=== PATIENT | male | born 1980 | race Two or more races ===

== ENCOUNTER 2016-10-07 01:43 | Inpatient (IN) | payer SELFPAY ==
[2016-10-07] VITALS (10 sets, daily range): BP systolic 132–216; BP diastolic 81–148
[~2016-10-07] VITALS: Ht 185.4 cm; Wt 145.7 kg
--- NOTE | 2016-10-07 02:19 | PHYS DOC ---
General Chief Complaint: SHORTNESS OF BREATH Stated Complaint: SHORTNESS OF BREATH Time Seen by MD: 01:58 Source: patient Problems: History of Present Illness Initial Comments Patient here with male friend for shortness of breath. Patient states this is going on for the last week. He gradually getting worse until tonight feels like he might . He's noticed swelling of the lower extremities for the last 2 weeks as well. Patient barely has a history of CHF with this from drug use. He says that one time he was told that his ejection fraction was 20%. He Nestor got clean for 4 months, and was told that it number was up to 55%. However, about 4 months ago at [facility] he relapsed because some social issues, and his been using methamphetamine since. He last used methamphetamine today. He 's had no fever or chills was felt hot and sweaty. There is no runny nose or sore throat. Chest some chest tightness and fullness along with the shortness of breath. He says this is not like "heart attack pain." He's had no nausea or vomiting. He has abdominal pain from what he describes his abdominal swelling and edema. He says he sees a stretch arroyo coming out. He has no change in bowel or bladder habits, though he admits to some sort of unusual, pleasurable, "orgasmic" feeling when he urinates. He does have bilateral lower extremity edema as previously described. He denies other focal extremity or neurologic complaints. Patient's done nothing at home for this over the past week. 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 He says he was posting on Coreg and Lasix, but didn't realize he was supposed to continue that after his last hospitalization and has been off his medicines for quite some time. Other than as described there's been nothing else done for this and no fractures noted increase or decrease his symptoms. Patient's past history is remarkable for CHF and methamphetamine abuse as described. He smokes several cigarettes daily. He is nonuser of ethanol. He does admit to methamphetamine use as described. Allergies: Coded Allergies: sulfamethoxazole (Verified Allergy, Unknown, 10/07/16) trimethoprim (Verified Allergy, Unknown, 10/07/16) Past Medical History Medical History: congestive heart failure, other Social History Smoker: less than 1 pack/day Alcohol: none Drugs: other Review of Systems All Other Systems: Reviewed and Negative Physical Exam General Appearance: WD/WN, mild distress Ear, Nose, Throat: normal ENT inspection, normal pharynx Neck: full range of motion, supple, normal inspection Respiratory: lungs clear, decreased breath sounds Cardiovascular: regular rate, rhythm, no gallop Gastrointestinal: non tender, soft, no organomegaly Back: no CVA tenderness, no vertebral tenderness Extremities: non-tender, swelling, other Neurologic/Psychiatric: no motor/sensory deficits, alert, normal mood/affect, oriented x 3 Skin: normal color Lymphatic: no adenopathy Comments Generally this is a morbidly obese in some mild respiratory distress. Vitals are as noted. Pertinent findings on physical exam shows ears and throat are grossly clear. The neck is supple without adenopathy or JVD. There's no meningeal signs. Chest shows diminished breath sounds throughout but is essentially clear. He is mildly tachypnea and using some accessory muscles. He is able to verbalize phrases without difficulty. He appears to be in mild respiratory distress. Cardiac exam shows regular rate and rhythm without murmur. The abdomen is distended and morbidly obese. Soft. There is no masses or organomegaly or peritoneal findings. Diffusely minimally tender. Back shows no CVA tenderness. Extremities show 3+ bilateral tight edema with some mild discoloration and venous stasis changes. There is no asymmetry or cords. Patient is awake alert mildly anxious but oriented and cooperative with exam. Remainder of physical exam is clinically unremarkable. Orders, Labs, Meds Old charts note no prior ER visits within the current system. EKG shows sinus 1:15. There is left axis deviation. There are no acute ST or T- wave changes. Labs today are notable for a BNP of nearly 11,000. Troponin is mildly elevated. CPK is unremarkable. Renal function appears fair with mild elevation of creatinine 1.5. Urine drug screen is positive for methamphetamine. Chest x-ray shows significant cardiomegaly and some mild pulmonary fullness suggestive of CHF per the emergency physician. 0445 Patient resting ED. Had good diuresis and says of shortness of breath is better. He is able to lie more flat at this time. I did discuss with the patient most likely cause of his symptoms related to exacerbation of CHF, and return likely related to his methamphetamine use. He will need to be admitted for diuresis and probable cardiac evaluation with echocardiogram to determine his current cardiac status. He voiced understanding and is agreeable to same. He is seen at the [facility]. I discussed the case with Dr. Moore of the hospitalist service who graciously agrees to admit the patient for further evaluation and care. I written initial holding orders to include serial cardiac enzymes, electrolyte measurements, diuresis, nitrates, cardiology consult with echocardiogram in the morning. The patient is resting at this time awaiting transfer to the floor and hospitalist care. PANKAJ CHERRY MD Oct 07, 2016 02:19
[2016-10-07] MEDS ORDERED: FUROSEMIDE 40 MG/4 ML VIAL IVP ONE (02:30)
[2016-10-07] MEDS ORDERED: NITROGLYCERIN OINT 1 GM PACKET. TP ONE (02:30)
[2016-10-07 03:56] LABS: BASO # 0.1 x10^3/uL (0.0-0.2); BASO % 1 % (0-3); EOS # 0.6 x10^3/uL (0.0-0.7); EOS % 5 % (0-3); HEMATOCRIT 44.5 % (39.0-53.0); HEMOGLOBIN 14.3 g/dL (13.0-17.5); LYMPH # 2.7 x10^3/uL (1.0-4.8); LYMPH % 23 % (24-48); MEAN CORPUSCULAR HEMOGLOBIN 27 pg (25-35); MEAN CORPUSCULAR HGB CONC 32 g/dL (31-37); MEAN CORPUSCULAR VOLUME 85 fL (79-100); MONO # 0.8 x10^3/uL (0.0-1.1); MONO % 7 % (0-9); NEUT # 7.6 x10^3uL (1.8-7.7); NEUT % 65 % (31-73); PLATELET COUNT 242 x10^3/uL (140-400); RED BLOOD COUNT 5.22 x10^6/uL (4.30-5.70); WHITE BLOOD COUNT 11.6 x10^3/uL (4.0-11.0)
[2016-10-07 04:21] LABS: ALBUMIN 3.3 g/dL (3.4-5.0); ALBUMIN/GLOBULIN RATIO 0.7 (1.0-1.7); CALCIUM 8.6 mg/dL (8.5-10.1); CREATININE 1.5 mg/dL (0.7-1.3); GFR 52.7; POTASSIUM 3.7 mmol/L (3.5-5.1); TOTAL BILIRUBIN 1.4 mg/dL (0.2-1.0)
[2016-10-07 04:30] LABS: BARBITURATES NEG (NEG); BENZODIAZEPINES NEG (NEG); CANNABINOIDS NEG (NEG); COCAINE NEG (NEG); METHADONE NEG (NEG); OPIATES NEG (NEG); PHENCYCLIDINE NEG (NEG)
[2016-10-07 04:33] LABS: BACTERIA,URINE FEW /HPF (0-FEW); BILIRUBIN,URINE NEG (NEG); CLARITY,URINE CLEAR; COLOR,URINE YELLOW; GLUCOSE,URINE NEG (NEG); NITRITE,URINE NEG (NEG); RBC,URINE 0 /HPF (0-2); SQUAMOUS EPITHELIAL CELL,UR OCC /LPF; UROBILINOGEN,URINE 0.2 mg/dL (0.2 mg/dL)
[2016-10-07 04:34] LABS: AMPHETAMINE/METHAMPHETAMINE POS (NEG)
--- NOTE | 2016-10-07 05:26 | ACF ---
Admission Criteria Forms HEART FAILURE: COMMON COMPLICATIONS Clinical Indications for Inpatient Care (Place 'X' for any and all applicable criteria): Ongoing inpatient care may be indicated for heart failure with ANY ONE of the following (1)(2)(3)(4)(5): [ ]I. Ongoing need for care for primary condition requiring frequent therapy adjustments because of changes in cardiac function (eg, drug dosage changes for drugs that are renally metabolized) [ ]II. New-onset heart failure [ ]III. Heart failure with decreased urine output not responsive to attempts to optimize volume status [ ]IV. Acute cardiac ischemia causing or associated with failure [X]V. Complications of heart failure, including ANY ONE of the following: [ ]a) Pericardial effusion [ ]b) Symptomatic pleural effusion [ ]c) O2 saturation <90% or PO2 < 60 mm Hg (8.0 kPa) on room air or require baseline supplemental O2 [ ]d) Tachypnea [X]e) Dyspnea [ ]f) Syncope [ ]g) Change in mental status [ ]h) Acute renal insufficiency that is severe (reduction of more than 50% in estimated glomerular filtration rate from baseline) or progressive reduction of more than 25% in estimated glomerular filtration rate from baseline, with creatinine continuing to rise) [ ]i) Hemodynamic instability [ ]j) Anasarca [ ]k) Clinically significant metabolic abnormalities due to heart failure (eg, new-onset metabolic acidosis) Extended stay beyond goal length of stay for primary condition may be needed until ALL of the following are present(1)(3): [ ]a) Stable and effective diuretic regimen established (or patient on stable dialysis regimen if in chronic renal failure) [ ]b) Breathing comfortably at rest [ ]c) Saturation of arterial oxygen greater than 90% or at acceptable baseline [ ]d) Pulmonary edema absent or improved [ ]e) Hemodynamic stability [ ]f) Volume status acceptable on oral medication [ ]g) Peripheral or sacral edema absent or improved [ ]h) Renal function stable and manageable at a lower level of care [ ]i) Complications (eg, pleural effusion) resolved or manageable at a lower level of care [ ]j) Patient or caregiver has received written discharge instructions or educational material addressing activity level, diet, discharge medications, follow-up appointment, weight monitoring, and what to do if symptoms worsen The original [email or web address] content created by [employer] has been revised. The portions of the content which have been revised are identified through the use of italic text or in bold, and [facility] has neither reviewed nor approved the modified material.All other unmodified content is copyright [facility]. Please see references footnoted in the original [facility] edition 2016 Admission Criteria Met?: Yes MARI CONTRERAS Oct 07, 2016 05:26
[2016-10-07] MEDS: MORPHINE SULFATE 4 MG/ML DISP.SYRIN. IV PRN ×3 (07:14→23:55)
--- NOTE | 2016-10-07 07:20 | RAD ---
Portable chest, 10/07/2016: History: Shortness of breath, chest pain The heart is at the upper limits of normal in size. No pulmonary infiltrates are seen. There is no evidence of pleural fluid. IMPRESSION: No acute cardiopulmonary abnormality is detected.
--- NOTE | 2016-10-07 07:53 | EKG ---
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
[2016-10-07 08:06] LABS: CALCIUM 8.7 mg/dL (8.5-10.1); CREATININE 1.6 mg/dL (0.7-1.3); GFR 48.9; POTASSIUM 3.3 mmol/L (3.5-5.1)
[2016-10-07] MEDS ORDERED: POTASSIUM CHLORIDE 20 MEQ TABLET.ER. PO ONE (08:45)
[2016-10-07] MEDS ORDERED: FURO-68 PO (09:11)
[2016-10-07] MEDS ORDERED: CARV25TA PO (09:11)
[2016-10-07] MEDS ORDERED: BENA20TA2 PO (09:12)
--- NOTE | 2016-10-07 09:39 | CARD ---
APPROVED REPORT EXAM: Two-dimensional and M-mode echocardiogram with Doppler and color Doppler. Other Information Quality : GoodHR: 106bpm Rhythm : Tachycardia INDICATION Congestive Heart Failure RISK FACTORS Hypertension Obesity HX.of methemphetamine use 2D DIMENSIONS RVDd2.4 (2.9-3.5cm)IVSd1.6 (0.7-1.1cm) Aortic Root(2D)2.6 (2.0-3.7cm)LVDd6.3 (3.9-5.9cm) PWd1.6 (0.7-1.1cm)LVDs5.6 (2.5-4.0cm) FS (%) 11.9 %SV51.1 ml LVEF(%)25.1 (>50%) Aortic Valve AoV Peak Alex.110.7cm/sAoV VTI13.8cm AO Peak GR.4.9mmHgAO Mean GR.3mmHg JOVANA (VTI)3.77cm2 Mitral Valve MV E Zvtiuuou906.0cm/sMV E Peak Gr.5mmHg MV DECEL [id number] E Mean Gr.3mmHg Tricuspid Valve TR P. [id number]/sRAP [id number] TR Peak Gr.52mmHg LEFT VENTRICLE The Left Ventricle is mildly dilated. There is moderate concentric left ventricular hypertrophy. Left ventricle systolic function is severely impaired. The Ejection Fraction is 20-25%. There is severe g lobal hypokinesis of the left ventricle. Tissue Doppler imaging reveals severe left ventricular diast olic dysfunction. No left ventricle thrombus noted on this study. RIGHT VENTRICLE The right ventricle is normal size. There is normal right ventricular wall thickness. RV Systolic fun ction is moderately reduced. ATRIA The left atrium is mildly dilated. The right atrium size is normal. The interatrial septum is intact with no evidence for an atrial septal defect or patent foramen ovale as noted on 2-D or Doppler imagi ng. AORTIC VALVE The aortic valve is normal in structure and function. Doppler and Color Flow revealed no significant aortic regurgitation. There is no significant aortic valvular stenosis. MITRAL VALVE There is no evidence of mitral valve prolapse. There is no mitral valve stenosis. Doppler and Color F low revealed mild mitral regurgitation. TRICUSPID VALVE Doppler and Color Flow revealed mild tricuspid regurgitation. The pulmonary artery systolic pressure is estimated at 57 mmHg. There is moderate pulmonary hypertension. PULMONIC VALVE Doppler and Color Flow revealed mild pulmonic valvular regurgitation. There is no pulmonic valvular s tenosis. GREAT VESSELS The aortic root is normal in size. The ascending aorta is normal in size. Pulmonary venous flow patte rn is suggestive of moderate to severe left ventricular diastolic dysfunction. The IVC is normal in s ize and collapses >50% with inspiration. PERICARDIAL EFFUSION There is no evidence of significant pericardial effusion. Critical Notification Critical Value: No <Conclusion> Left ventricle systolic function is severely impaired. The Ejection Fraction is 20-25%. There is severe global hypokinesis of the left ventricle. Tissue Doppler imaging reveals severe left ventricular diastolic dysfunction. RV Systolic function is moderately reduced. Doppler and Color Flow revealed mild tricuspid regurgitation. The pulmonary artery systolic pressure is estimated at 57 mmHg. There is moderate pulmonary hypertension.
--- NOTE | 2016-10-07 09:55 | PDOC2 ---
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 His initial echo was 30 % in 2014 but had improved to 55% by echo ~ 4 months ago. He reports that he stopped his medication, not understanding that he needed to continue to take it. He has additional history of methamphetamine use , had stopped but restarted about 4-5 months ago. He reports about 4 weeks ago , developing a cough. He became progressively more short of breath and edematous. Yesterday he was unable to walk more than 20 feet without significant dyspnea. He reports PND frequently, waking about every 2 hours. He denies chest pain or palpitations. He reports good output with the lasix and that his symptoms are significantly improved. Past Medical History hypertension, NICM, CHF he reports a negative cardiac cath previously attention deficit disorder Family History CAD, diabetes mellitus Social History + smoker, methamphetamine use, he denies significant ETOH he has two young children at home. Current Medications Current Medications Furosemide (Lasix) 40 mg 1X ONCE IVP Last administered on 10/07/16 03:32; Start 10/07/16 at 02:30; Stop 10/07/16 at 02:32; Status DC Nitroglycerin (Nitro-Bid Oint) 1 inch 1X ONCE TP Last administered on 03:36; Start 10/07/16 at 02:30; Stop 10/07/16 at 02:32; Status DC Furosemide (Lasix) 40 mg Q8HRS IVP ; Start 10/07/16 at 14:00 Nitroglycerin (Nitro-Bid Oint) 1 inch Q6HRS TP ; Start 10/07/16 at 12:00 Morphine Sulfate (Morphine 4mg Syringe) 4 mg PRN Q4HRS PRN IV PAIN Last administered on 10/07/16 07:14; Start 10/07/16 at 07:00 Potassium Chloride (Klor-Con) 40 meq 1X ONCE PO ; Start 10/07/16 at 08:45; Stop 10/07/16 at 08:46; Status DC Active Scripts Active Reported Benazepril Hcl 20 Mg Tablet 1 Tab PO DAILY Lasix (Furosemide) 40 Mg Tablet 1 Tab PO DAILY Coreg (Carvedilol) 25 Mg Tablet 1 Tab PO BID Allergies: Coded Allergies: sulfamethoxazole (Verified Allergy, Intermediate, 10/07/16) trimethoprim (Verified Allergy, Intermediate, 10/07/16) Review of System as per HPI General: Alert, Oriented X3, Cooperative, No acute distress HEENT: Atraumatic, EOMI Lungs: Other (decreased from mid lung down) Heart: Regular rate, Normal S1, Normal S2 Abdomen: Normal bowel sounds, Soft, No tenderness Extremities: No cyanosis, Normal pulses, Other (+2 edema) Neuro: Normal speech, Strength at 5/5 X4 ext Psych/Mental Status: Mental status NL, Mood NL VITALS Vital Signs Date Time Temp Pulse Resp B/P Pulse Ox O2 Delivery O2 Flow Rate FiO2 10/07/16 08:12 22 97 Room Air 10/07/16 07:51 100 203/131 10/07/16 06:30 97.5 Labs Laboratory Tests Test 10/07/16 03:16 10/07/16 04:10 10/07/16 07:45 White Blood Count 11.6x10^3/uL (4.0-11.0) Red Blood Count 5.22x10^6/uL (4.30-5.70) Hemoglobin 14.3g/dL (13.0-17.5) Hematocrit 44.5% (39.0-53.0) Mean Corpuscular Volume 85fL (79-100) Mean Corpuscular Hemoglobin 27pg (25-35) Mean Corpuscular Hemoglobin Concent 32g/dL (31-37) Red Cell Distribution Width 15.0% (11.5-14.5) Platelet Count 242x10^3/uL (140-400) Neutrophils (%) (Auto) 65% (31-73) Lymphocytes (%) (Auto) 23% (24-48) Monocytes (%) (Auto) 7% (0-9) Eosinophils (%) (Auto) 5% (0-3) Basophils (%) (Auto) 1% (0-3) Neutrophils # (Auto) 7.6x10^3uL (1.8-7.7) Lymphocytes # (Auto) 2.7x10^3/uL (1.0-4.8) Monocytes # (Auto) 0.8x10^3/uL (0.0-1.1) Eosinophils # (Auto) 0.6x10^3/uL (0.0-0.7) Basophils # (Auto) 0.1x10^3/uL (0.0-0.2) Prothrombin Time 11.6SEC (9.4-11.4) Prothromb Time International Ratio 1.1 (0.9-1.1) Sodium Level 140mmol/L (136-145) 144mmol/L (136-145) Potassium Level 3.7mmol/L (3.5-5.1) 3.3mmol/L (3.5-5.1) Chloride Level 105mmol/L (98-107) 106mmol/L (98-107) Carbon Dioxide Level 21mmol/L (21-32) 27mmol/L (21-32) Anion Gap 14 (6-14) 11 (6-14) Blood Urea Nitrogen 21mg/dL (8-26) 19mg/dL (8-26) Creatinine 1.5mg/dL (0.7-1.3) 1.6mg/dL (0.7-1.3) Estimated GFR (Cockcroft-Gault) 52.7 48.9 BUN/Creatinine Ratio 14 (6-20) Glucose Level 106mg/dL (70-99) 120mg/dL (70-99) Calcium Level 8.6mg/dL (8.5-10.1) 8.7mg/dL (8.5-10.1) Total Bilirubin 1.4mg/dL (0.2-1.0) Aspartate Amino Transf (AST/SGOT) 36U/L (15-37) Alanine Aminotransferase (ALT/SGPT) 39U/L (16-63) Alkaline Phosphatase 76U/L (46-116) Creatine Kinase 139U/L (39-308) 138U/L (39-308) Creatine Kinase MB (Mass) 2.1ng/mL (0.0-3.6) Creatine Kinase MB Relative Index 1.5% (0-4) Troponin I Quantitative 0.120ng/mL (0-0.055) 0.117ng/mL (0-0.055) WH-Bwk-L-Type Natriuretic Peptide 16386ix/mL (0-124) Total Protein 8.0g/dL (6.4-8.2) Albumin 3.3g/dL (3.4-5.0) Albumin/Globulin Ratio 0.7 (1.0-1.7) Ethyl Alcohol Level < 10mg/dL (0-10) Acetone Level Neg (NEG) Urine Collection Type Unknown Urine Color Yellow Urine Clarity Clear Urine pH 6.0 Urine Specific [place] 1.010 Urine Protein 100 mg/dl (NEG-TRACE) Urine Glucose (UA) Negmg/dL (NEG) Urine Ketones (Stick) Negmg/dL (NEG) Urine Blood Small (NEG) Urine Nitrite Neg (NEG) Urine Bilirubin Neg (NEG) Urine Urobilinogen Dipstick 0.2mg/dL (0.2 mg/dL) Urine Leukocyte Esterase Trace (NEG) Urine RBC 0/HPF (0-2) Urine WBC 5-10/HPF (0-4) Urine Squamous Epithelial Cells Occ/LPF Urine Bacteria Few/HPF (0-FEW) Urine Opiates Screen Neg (NEG) Urine Methadone Screen Neg (NEG) Urine Barbiturates Neg (NEG) Urine Phencyclidine Screen Neg (NEG) Urine Amphetamine/Methamphetamine Pos (NEG) Urine Benzodiazepines Screen Neg (NEG) Urine Cocaine Screen Neg (NEG) Urine Cannabinoids Screen Neg (NEG) Urine Ethyl Alcohol Neg (NEG) Images EKG - sinus tachycardia with non specific st/t abn. Assessment/Plan 1. acute on chronic systolic heart failure - await echo, resume beta blockers, ACEI, diuretics. He could probably use aldactone as well if able to tolerate. Continue IV diuresis. monitor I/Os and daily weight. Requested records of cardiac cath (apparently done at [facility]). 2. NICM by report - EF as low as 22%, improved to 55% in March of last year. Await echo. 3. elevated troponin - secondary to #1-2 4. accelerated hypertension - resume beta sudeep, ACEI/ARB and diuretics. Hydralazine PRN. Titrate meds as tolerated. 5. substance abuse - cessation encouraged 6. morbid obesity - weight reduction encouraged. 7. medical non compliance Problems: CORTNEY REBOLLAR MD 10/07/16 1408: CONSULT Allergies: Coded Allergies: sulfamethoxazole (Verified Allergy, Intermediate, 10/07/16) trimethoprim (Verified Allergy, Intermediate, 10/07/16) Assessment/Plan Pt. seen and examined. Agree with above BUSINESS PROCESS REPRESENTATIVE note. 36 y.o with NICM due to drug abuse on exam he is obese, has sleep apnea, lower ext edema. plan for med reinitiation. echo reviewed. EF 25% will follow. Problems: ESTER MO APRN Oct 07, 2016 09:55 CORTNEY REBOLLAR MD Oct 07, 2016 14:08
[2016-10-07] MEDS ORDERED: hydrALAZINE 20 MG/ML VIAL. IV PRN ×2 (10:00→13:45)
[2016-10-07] MEDS ORDERED: LISINOPRIL 10 MG TABLET PO SCH (10:30)
[2016-10-07] MEDS ORDERED: CARVEDILOL 6.25 MG TABLET PO SCH ×2 (10:30→17:00)
[2016-10-07] MEDS ORDERED: ASPIRIN 81 MG TAB.CHEW PO ONE (10:30)
[2016-10-07] MEDS: POTASSIUM CHLORIDE 20 MEQ TABLET.ER. PO ONE ×2 (10:30→10:42)
[2016-10-07] MEDS: FUROSEMIDE 40 MG/4 ML VIAL IVP SCH ×2 (10:39→21:03)
[2016-10-07] MEDS ORDERED: LOSARTAN 50 MG TABLET. PO SCH (11:30)
[2016-10-07] MEDS: NITROGLYCERIN OINT 1 GM PACKET. TP SCH ×3 (12:00→23:55)
[2016-10-07] MEDS ORDERED: FUROSEMIDE 40 MG/4 ML VIAL IVP SCH (14:00)
[2016-10-07] MEDS: ALPRAZOLAM 0.25 MG TABLET PO PRN (14:16)
--- NOTE | 2016-10-07 14:24 | HP ---
ADMIT DATE: 10/07/2016 HISTORY OF PRESENT ILLNESS: The patient is a 36-year-old male patient who came to the Emergency Room complaining with progressive shortness of breath and swelling of both legs. He was unable to walk more than 20 feet without significant shortness of breath. He reports paroxysmal nocturnal dyspnea. He denied any chest pain or palpitation. He apparently is known to have an ischemic cardiomyopathy with an ejection fraction of 30% in 2015 and that has improved to 55% with an echocardiogram done 4 months ago. He apparently thought it was cured and stopped his medication. In addition, he started abusing methamphetamine. About 4 weeks ago, he started having cough and then progressive swelling of his legs and weight gain. He came to the Emergency Room with a friend of his. Initial evaluation showed that he continued to abusing amphetamine and methamphetamine. His troponin was elevated and his BNP was found to be high almost 11,000 and was admitted to rule out myocardial infarction and to consult cardiology team for further evaluation and treatment. PAST MEDICAL HISTORY: Significant for hypertension, nonischemic cardiomyopathy, and congestive heart failure. Also, he is known to have attention deficit hyperactivity syndrome. PAST SURGICAL HISTORY: Significant for cardiac catheterization. FAMILY HISTORY: Significant for coronary artery disease and diabetes. SOCIAL HISTORY: He is a smoker and continued to use amphetamine. He denied any alcohol abuse. He has 2 young children at home. ALLERGIES: HE IS ALLERGIC TO SULFAMETHOXAZOLE AND TRIMETHOPRIM. MEDICATIONS: He was placed on benazepril 20 mg once a day, carvedilol 25 mg twice a day, and furosemide 40 mg once a day. REVIEW OF SYSTEMS: As per history of present illness. PHYSICAL EXAMINATION: GENERAL: On examining him, he was resting slightly propped up in bed, in no apparent respiratory distress. No pallor, jaundice, cyanosis, or thyromegaly. No jugular distention ____ generalized anasarca. VITAL SIGNS: His heart rate was 100, blood pressure 189/148, temperature was 97.8, respiratory rate 22, and oxygen saturation was 98% on room air. HEENT: Showed normocephalic and atraumatic. NECK: Supple. HEART: Showed normal first and second heart sounds with no gallop, rub, or murmur. CHEST: Clear to auscultation. No crepitation or rhonchi. ABDOMEN: Distended, soft, and nontender. No guarding or rigidity. No organomegaly. Hernial orifices are intact. Bowel sounds normal. NEUROLOGIC: He is awake, alert, and responding appropriately. Cranial nerves intact. EXTREMITIES: he moves extremities without difficulty. LABORATORY DATA: His lab work as of this morning showed that his serum sodium was 140, potassium 3.7, chloride 105, bicarbonate 21, anion gap of 14, BUN 21, creatinine 1.5, estimated GFR was 53 mL per minute, his glucose 106, calcium was 8.6, and total bilirubin 1.4. AST, ALT, and alkaline phosphatase were normal. His beta natriuretic peptide was almost 11,000. Total protein was 8 and albumin 3.3. His white cell count was 11,600, hemoglobin 14, hematocrit 44, MCV 85, and platelet count 242,000. His prothrombin time was 11.6 and INR 1.1. Urinalysis showed the urine was yellow and clear with a pH of 6 and specific gravity of 1.010. He has large amount of protein. The urine was negative for glucose, ketones, and small amount of blood. Negative for nitrite, trace of leukocyte esterase with 0 rbc's, 5-10 wbc's, and very few bacteria. His toxic screen was positive for amphetamine and methamphetamine. Negative for opiates, methadone, barbiturates, phencyclidine, benzodiazepine, cannabinoids, and ethyl alcohol. DIAGNOSTIC DATA: His chest x-ray showed that the heart is at the upper limit of normal in size and pulmonary infiltrates are seen. There is no evidence of pleural fluid. IMPRESSION AND PLAN: 1. In summary, this is a 36-year-old male patient with acute on chronic systolic congestive heart failure. His echocardiogram showed that he has left ventricular systolic function severely impaired with ejection fraction of 20-25%. He has severe global hypokinesis of the left ventricle. Tissue Doppler imaging revealed severe left ventricular diastolic dysfunction and right ventricular systolic function is moderately reduced. Doppler and color flow revealed mild tricuspid regurgitation. The pulmonary systolic pressure was estimated at 57 mmHg. There is moderate pulmonary hypertension. He has a nonischemic cardiomyopathy with an ejection fraction that has improved to 55% 03/2016. 2. Elevated troponin. 3. Accelerated hypertension. 4. Substance abuse. 5. Moderate morbid obesity. He is currently on losartan, carvedilol, hydralazine, furosemide, and morphine sulfate. ANTONIO YOUNG MD DR: Mary JOB#: [id number] / [id number]
[2016-10-07] MEDS ORDERED: CARVEDILOL 6.25 MG TABLET PO ONE (14:30)
[2016-10-07] MEDS: CARVEDILOL 25 MG TABLET PO SCH (16:43)
--- NOTE | 2016-10-07 20:55 | EKG ---
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
[2016-10-07] MEDS: LOSARTAN 50 MG TABLET. PO SCH (21:04)
[2016-10-08 05:05] VITALS: BP 152/89
[2016-10-08] MEDS: NITROGLYCERIN OINT 1 GM PACKET. TP SCH ×2 (05:50→11:19)
[2016-10-08 06:30] LABS: HEMATOCRIT 44.5 % (39.0-53.0); HEMOGLOBIN 14.4 g/dL (13.0-17.5); RED BLOOD COUNT 5.16 x10^6/uL (4.30-5.70); RED CELL DISTRIBUTION WIDTH 14.8 % (11.5-14.5); WHITE BLOOD COUNT 8.9 x10^3/uL (4.0-11.0)
[2016-10-08 06:52] LABS: ALBUMIN/GLOBULIN RATIO 0.7 (1.0-1.7); CALCIUM 8.3 mg/dL (8.5-10.1); CREATININE 1.5 mg/dL (0.7-1.3); GFR 52.7; POTASSIUM 3.4 mmol/L (3.5-5.1); TOTAL BILIRUBIN 1.2 mg/dL (0.2-1.0); TOTAL PROTEIN 7.5 g/dL (6.4-8.2)
[2016-10-08] MEDS: ALPRAZOLAM 0.25 MG TABLET PO PRN (08:50)
[2016-10-08] MEDS: LOSARTAN 50 MG TABLET. PO SCH (08:51)
[2016-10-08] MEDS: CARVEDILOL 25 MG TABLET PO SCH (08:51)
[2016-10-08] MEDS: FUROSEMIDE 40 MG/4 ML VIAL IVP SCH (09:39)
[2016-10-08] MEDS ORDERED: POTASSIUM CHLORIDE 20 MEQ TABLET.ER. PO SCH (10:00)
[2016-10-08] MEDS ORDERED: HYDRALAZINE 25 MG TABLET PO SCH (10:00)
[2016-10-08 10:37] VITALS: BP 143/92
--- NOTE | 2016-10-08 11:02 | PDOC ---
PROGRESS NOTES Diagnosis Problem Problems Medical Problems: (1) CHF (congestive heart failure) Status: Acute Assessment Problems Medical Problems: (1) CHF (congestive heart failure) Status: Acute 1. acute on chronic systolic heart failure - EF 25% by echo. continue coreg, losartan. Add hydralazine. Consider aldactone. Continue diuresis. awaiting [facility] records of cardiac cath. 2. NICM by report - EF as low as 22%, improved to 55% in March of last year now 25%. medical therapy resumed. 3. elevated troponin - secondary to #1-2 4. accelerated hypertension - blood pressure improving. Coreg and losartan at max dosing. add hydralazine scheduled. 5. hypokalemia - replace 6. renal insufficiency - likely chronic, cr remains stable. Problems: Subjective up eating, no chest pain, breathing improved. remains edematous. Objective Vital Signs Date Time Temp Pulse Resp B/P Pulse Ox O2 Delivery O2 Flow Rate FiO2 10/08/16 10:38 85 10/08/16 10:37 97.8 18 143/92 94 Room Air Intake and Output 10/08/16 07:00 Intake Total 2860 ml Output Total 2875 ml Balance -15 ml Intake Oral 2860 ml Output Urine Total 2875 ml # Voids 2 Abdomen: Normal bowel sounds, Soft Heart: Regular rate, Normal S1, Normal S2 Extremities: Other (+edema unchanged) General: Alert, Oriented X3, Cooperative Lungs: Other (few basilar crackles) Neuro: Normal speech, Strength at 5/5 X4 ext Psych/Mental Status: Mental status NL, Mood NL Review of Relevant I have reviewed the following items juan (where applicable) has been applied. Labs Laboratory Tests Test 10/07/16 03:16 10/07/16 04:10 10/07/16 07:45 10/07/16 11:10 White Blood Count 11.6x10^3/uL (4.0-11.0) Red Blood Count 5.22x10^6/uL (4.30-5.70) Hemoglobin 14.3g/dL (13.0-17.5) Hematocrit 44.5% (39.0-53.0) Mean Corpuscular Volume 85fL (79-100) Mean Corpuscular Hemoglobin 27pg (25-35) Mean Corpuscular Hemoglobin Concent 32g/dL (31-37) Red Cell Distribution Width 15.0% (11.5-14.5) Platelet Count 242x10^3/uL (140-400) Neutrophils (%) (Auto) 65% (31-73) Lymphocytes (%) (Auto) 23% (24-48) Monocytes (%) (Auto) 7% (0-9) Eosinophils (%) (Auto) 5% (0-3) Basophils (%) (Auto) 1% (0-3) Neutrophils # (Auto) 7.6x10^3uL (1.8-7.7) Lymphocytes # (Auto) 2.7x10^3/uL (1.0-4.8) Monocytes # (Auto) 0.8x10^3/uL (0.0-1.1) Eosinophils # (Auto) 0.6x10^3/uL (0.0-0.7) Basophils # (Auto) 0.1x10^3/uL (0.0-0.2) Prothrombin Time 11.6SEC (9.4-11.4) Prothromb Time International Ratio 1.1 (0.9-1.1) Sodium Level 140mmol/L (136-145) 144mmol/L (136-145) Potassium Level 3.7mmol/L (3.5-5.1) 3.3mmol/L (3.5-5.1) Chloride Level 105mmol/L (98-107) 106mmol/L (98-107) Carbon Dioxide Level 21mmol/L (21-32) 27mmol/L (21-32) Anion Gap 14 (6-14) 11 (6-14) Blood Urea Nitrogen 21mg/dL (8-26) 19mg/dL (8-26) Creatinine 1.5mg/dL (0.7-1.3) 1.6mg/dL (0.7-1.3) Estimated GFR (Cockcroft-Gault) 52.7 48.9 BUN/Creatinine Ratio 14 (6-20) Glucose Level 106mg/dL (70-99) 120mg/dL (70-99) Calcium Level 8.6mg/dL (8.5-10.1) 8.7mg/dL (8.5-10.1) Total Bilirubin 1.4mg/dL (0.2-1.0) Aspartate Amino Transf (AST/SGOT) 36U/L (15-37) Alanine Aminotransferase (ALT/SGPT) 39U/L (16-63) Alkaline Phosphatase 76U/L (46-116) Creatine Kinase 139U/L (39-308) 138U/L (39-308) 136U/L (39-308) Creatine Kinase MB (Mass) 2.1ng/mL (0.0-3.6) Creatine Kinase MB Relative Index 1.5% (0-4) Troponin I Quantitative 0.120ng/mL (0-0.055) 0.117ng/mL (0-0.055) 0.121ng/mL (0-0.055) WW-Vdn-T-Type Natriuretic Peptide 20278bw/mL (0-124) Total Protein 8.0g/dL (6.4-8.2) Albumin 3.3g/dL (3.4-5.0) Albumin/Globulin Ratio 0.7 (1.0-1.7) Ethyl Alcohol Level < 10mg/dL (0-10) Acetone Level Neg (NEG) Urine Collection Type Unknown Urine Color Yellow Urine Clarity Clear Urine pH 6.0 Urine Specific [place] 1.010 Urine Protein 100 mg/dl (NEG-TRACE) Urine Glucose (UA) Negmg/dL (NEG) Urine Ketones (Stick) Negmg/dL (NEG) Urine Blood Small (NEG) Urine Nitrite Neg (NEG) Urine Bilirubin Neg (NEG) Urine Urobilinogen Dipstick 0.2mg/dL (0.2 mg/dL) Urine Leukocyte Esterase Trace (NEG) Urine RBC 0/HPF (0-2) Urine WBC 5-10/HPF (0-4) Urine Squamous Epithelial Cells Occ/LPF Urine Bacteria Few/HPF (0-FEW) Urine Opiates Screen Neg (NEG) Urine Methadone Screen Neg (NEG) Urine Barbiturates Neg (NEG) Urine Phencyclidine Screen Neg (NEG) Urine Amphetamine/Methamphetamine Pos (NEG) Urine Benzodiazepines Screen Neg (NEG) Urine Cocaine Screen Neg (NEG) Urine Cannabinoids Screen Neg (NEG) Urine Ethyl Alcohol Neg (NEG) Test 10/08/16 05:37 White Blood Count 8.9x10^3/uL (4.0-11.0) Red Blood Count 5.16x10^6/uL (4.30-5.70) Hemoglobin 14.4g/dL (13.0-17.5) Hematocrit 44.5% (39.0-53.0) Mean Corpuscular Volume 86fL (79-100) Mean Corpuscular Hemoglobin 28pg (25-35) Mean Corpuscular Hemoglobin Concent 33g/dL (31-37) Red Cell Distribution Width 14.8% (11.5-14.5) Platelet Count 226x10^3/uL (140-400) Sodium Level 142mmol/L (136-145) Potassium Level 3.4mmol/L (3.5-5.1) Chloride Level 105mmol/L (98-107) Carbon Dioxide Level 28mmol/L (21-32) Anion Gap 9 (6-14) Blood Urea Nitrogen 20mg/dL (8-26) Creatinine 1.5mg/dL (0.7-1.3) Estimated GFR (Cockcroft-Gault) 52.7 BUN/Creatinine Ratio 13 (6-20) Glucose Level 105mg/dL (70-99) Calcium Level 8.3mg/dL (8.5-10.1) Magnesium Level 1.9mg/dL (1.8-2.4) Total Bilirubin 1.2mg/dL (0.2-1.0) Aspartate Amino Transf (AST/SGOT) 36U/L (15-37) Alanine Aminotransferase (ALT/SGPT) 39U/L (16-63) Alkaline Phosphatase 94U/L (46-116) RE-Pzu-U-Type Natriuretic Peptide 2696pg/mL (0-124) Total Protein 7.5g/dL (6.4-8.2) Albumin 3.0g/dL (3.4-5.0) Albumin/Globulin Ratio 0.7 (1.0-1.7) Medications Current Medications Furosemide (Lasix) 40 mg 1X ONCE IVP Last administered on 10/07/16 03:32; Start 10/07/16 at 02:30; Stop 10/07/16 at 02:32; Status DC Nitroglycerin (Nitro-Bid Oint) 1 inch 1X ONCE TP Last administered on 03:36; Start 10/07/16 at 02:30; Stop 10/07/16 at 02:32; Status DC Furosemide (Lasix) 40 mg Q8HRS IVP ; Start 10/07/16 at 14:00; Stop 10/07/16 at 14:00; Status DC Nitroglycerin (Nitro-Bid Oint) 1 inch Q6HRS TP ; Start 10/07/16 at 12:00 Morphine Sulfate (Morphine 4mg Syringe) 4 mg PRN Q4HRS PRN IV PAIN Last administered on 10/07/16 23:55; Start 10/07/16 at 07:00; Stop 10/08/16 at 09:40 ; Status DC Potassium Chloride (Klor-Con) 40 meq 1X ONCE PO Last administered on 10:42; Start 10/07/16 at 08:45; Stop 10/07/16 at 08:46; Status DC Furosemide (Lasix) 40 mg BID IVP Last administered on 10/08/16 09:39; Start at 09:00 Lisinopril (Prinivil) 10 mg DAILY PO ; Start 10/07/16 at 10:30; Stop 10/07/16 at 11:16; Status DC Carvedilol (Coreg) 6.25 mg BIDWMEALS PO Last administered on 10/07/16 10:45; Start 10/07/16 at 10:30; Stop 10/07/16 at 13:51; Status DC Aspirin (Children'S Aspirin) 81 mg 1X ONCE PO Last administered on 10/07/16 10:43; Start 10/07/16 at 10:30; Stop 10/07/16 at 10:31; Status DC Potassium Chloride (Klor-Con) 20 meq 1X ONCE PO ; Start 10/07/16 at 10:30; Stop 10/07/16 at 10:31; Status DC Hydralazine HCl (Apresoline) 10 mg PRN Q4HRS PRN IV ELEVATED BP, SEE COMMENTS; Start 10/07/16 at 10:00; Stop 10/07/16 at 13:51; Status DC Losartan Potassium (Cozaar) 50 mg DAILY PO Last administered on 10/07/16 11:27 ; Start 10/07/16 at 11:30; Stop 10/07/16 at 13:51; Status DC Carvedilol (Coreg) 12.5 mg BIDWMEALS PO ; Start 10/07/16 at 17:00; Stop at 17:00; Status DC Hydralazine HCl (Apresoline) 20 mg PRN Q4HRS PRN IV ELEVATED BP, SEE COMMENTS Last administered on 10/07/16 14:16; Start 10/07/16 at 13:45 Losartan Potassium (Cozaar) 50 mg BID PO Last administered on 10/08/16 08:51; Start 10/07/16 at 21:00 Alprazolam (Xanax) 0.25 mg PRN Q8HRS PRN PO ANXIETY / AGITATION Last administered on 10/08/16 08:50; Start 10/07/16 at 14:00 Carvedilol (Coreg) 25 mg BIDWMEALS PO Last administered on 10/08/16 08:51; Start 10/07/16 at 17:00 Carvedilol (Coreg) 6.25 mg 1X ONCE PO Last administered on 10/07/16 14:29; Start 10/07/16 at 14:30; Stop 10/07/16 at 14:31; Status DC Hydralazine HCl (Apresoline) 25 mg BID PO Last administered on 10/08/16 10:38 ; Start 10/08/16 at 10:00 Potassium Chloride (Klor-Con) 20 meq DAILYWBKFT PO Last administered on 10:38; Start 10/08/16 at 10:00 Active Scripts Active Reported Benazepril Hcl 20 Mg Tablet 1 Tab PO DAILY Lasix (Furosemide) 40 Mg Tablet 1 Tab PO DAILY Coreg (Carvedilol) 25 Mg Tablet 1 Tab PO BID Vitals/I & O Vital Sign - Last 24 Hours 10/07/16 10/07/16 10/07/16 10/07/16 11:07 11:27 11:35 11:45 Temp 98.3 98.3 Pulse 110 106 106 Resp 24 24 22 B/P 181/141 181/141 Pulse Ox 97 98 98 O2 Delivery Room Air Room Air Room Air 10/07/16 10/07/16 10/07/16 10/07/16 11:45 12:43 14:10 14:16 Temp 98.3 97.8 98.3 Pulse 106 100 90 90 Resp 22 18 B/P 181/141 189/148 173/103 173/103 Pulse Ox 98 98 93 O2 Delivery Room Air Room Air Room Air 10/07/16 10/07/16 10/07/16 10/07/16 14:29 16:41 16:43 19:32 Temp 97.4 97.9 Pulse 90 88 90 82 Resp 20 18 B/P 173/103 134/83 135/83 Pulse Ox 97 95 O2 Delivery Room Air Room Air 10/07/16 10/07/16 10/07/16 10/07/16 20:00 21:04 23:07 23:55 Temp 97.8 Pulse 82 81 81 Resp 20 B/P 135/83 132/81 132/81 Pulse Ox 98 O2 Delivery Room Air Room Air 10/07/16 10/08/16 10/08/16 10/08/16 23:55 00:25 05:05 05:50 Temp 98.0 Pulse 81 81 Resp 24 20 22 B/P 152/89 152/89 Pulse Ox 98 94 O2 Delivery Room Air Room Air Room Air 10/08/16 10/08/16 10/08/16 10/08/16 08:51 08:51 10:37 10:38 Temp 97.8 Pulse 85 85 87 85 Resp 18 B/P 143/92 Pulse Ox 94 O2 Delivery Room Air Intake and Output 10/07/16 10/07/16 10/08/16 15:00 23:00 07:00 Intake Total 1660 ml 960 ml 240 ml Output Total 600 ml 1375 ml 900 ml Balance 1060 ml -415 ml -660 ml ESTER MO APRN Oct 08, 2016 11:02
[2016-10-08] MEDS ORDERED: CARV25TA PO (14:21)
[2016-10-08] MEDS ORDERED: POTA20TA84 PO (14:21)
[2016-10-08] MEDS ORDERED: FURO-68 PO (14:21)
[2016-10-08] MEDS ORDERED: HYDR-2868 PO (14:21)
[2016-10-08] MEDS ORDERED: LOSA50TA6 PO (14:21)
--- NOTE | 2016-10-08 20:22 | DS ---
DATE OF DISCHARGE: 10/08/2016 HOSPITAL COURSE: The patient is a 36-year-old male patient who was admitted with worsening shortness of breath, swelling of both legs, was unable to walk more than 20 feet without significant shortness of breath. He also reported paroxysmal nocturnal dyspnea. Denied any chest pain and palpitation. He is known to have nonischemic cardiomyopathy with an ejection fraction of 30% in 2015 that has improved to 55% on echocardiogram done 4 months ago. He was apparently told that he was cured and stop his medication. He started abusing amphetamine. About 4 weeks ago, he started complaining of cough and then progressive swelling of both legs and weight gain. He was evaluated in the Emergency Room and was found to be in acute on chronic systolic congestive heart failure, ejection fraction was found to be only 25% on echocardiogram. He was found also to have accelerated hypertension, slightly elevated troponin secondary to acute on chronic systolic congestive heart failure. He was also found to have hyperkalemia and renal insufficiency. He was started on IV Lasix and we started adjusting his blood pressure medication. He did actually very well. PHYSICAL EXAMINATION: GENERAL: When I saw him today, he was sitting at the edge of the bed comfortably, in no apparent respiratory distress. No pallor, jaundice, cyanosis, lymphadenopathy, or thyromegaly. No jugular venous distension. His bilateral lower limb edema has largely resolved. VITAL SIGNS: His heart rate was 87, blood pressure 143/92, temperature was 97.8, respiratory rate was 18, and oxygen saturation was 94%. HEAD, EYES, EARS, NOSE, AND THROAT: Normocephalic, atraumatic. NECK: Supple. HEART: Showed normal first and second heart sounds. No gallop, rub, or murmur. CHEST: Clear to auscultation. No crepitation or rhonchi. ABDOMEN: Distended, soft, nontender. No guarding or rigidity. No organomegaly. Hernial orifices intact. Bowel sounds normal. NEUROLOGIC: He was awake, alert, responding appropriately. Cranial nerves intact. He ambulates without assistance or assistive devices. His intake over the last 24 hour was 3860, output was 3870. LABORATORY DATA: His lab work this morning showed a white cell count of 8900, hemoglobin 14.4, hematocrit 44, MCV 86, and platelet count 226,000. His chemistry showed a serum sodium 142, potassium 3.4, chloride 105, bicarbonate 28, anion gap of 9, BUN 20, creatinine 1.5, estimated GFR was 53 mL per minute. His glucose was 105, calcium was 8.3. Total bilirubin, AST, ALT, alkaline phosphatase were normal. His beta natriuretic peptide came down from 11,000 to 3000. Total protein was 7.5, albumin 3. His prothrombin time was 11.6, INR 1.1. DISCHARGE MEDICATIONS: He was discharged to continue on potassium chloride 20 mEq once a day, hydralazine 25 mg p.o. b.i.d., Losartan Potassium 50 mg p.o. b.i.d., carvedilol 25 mg twice a day, alprazolam 0.25 mg three times a day, and furosemide 40 mg once a day. FINAL DISCHARGE DIAGNOSES: 1. Acute on chronic systolic heart failure, ejection fraction 25% by echo. 2. Nonischemic cardiomyopathy with ejection fraction low at 22%, that improved to 55% in 03/2016. 3. Accelerated hypertension. Blood pressure is much improved now. 4. Hypokalemia, resolved. His potassium is 3.4. 5. Chronic renal insufficiency. ANTONIO YOUNG MD DR: ORESTES/jose de jesus JOB#: [id number] / [id number]
== END 2016-10-08 15:35 | disposition home or self-care (01) | DRG 291 ==
LOC: ER 01:43 → 1 SOUTH 04:45
PROVIDERS: ADMIT Internal Medicine; ATTEND Internal Medicine
DX: I13.0 Hypertensive heart and chronic kidney disease with heart failure and stage 1 through stage 4 chronic kidney disease, or unspecified chronic kidney disease (principal); I50.23 Acute on chronic systolic (congestive) heart failure; Z68.41 Body mass index [BMI] 40.0-44.9, adult; F17.210 Nicotine dependence, cigarettes, uncomplicated; E87.6 Hypokalemia; E87.5 Hyperkalemia; E66.01 Morbid (severe) obesity due to excess calories; I25.5 Ischemic cardiomyopathy; I27.2 Other secondary pulmonary hypertension; I07.1 Rheumatic tricuspid insufficiency; F90.9 Attention-deficit hyperactivity disorder, unspecified type; N18.9 Chronic kidney disease, unspecified; Z82.49 Family history of ischemic heart disease and other diseases of the circulatory system; Z91.19 Patient's noncompliance with other medical treatment and regimen; Z83.3 Family history of diabetes mellitus; Z88.2 Allergy status to sulfonamides; Z88.8 Allergy status to other drugs, medicaments and biological substances
CPT/HCPCS: 36415; 71010; 80048; 80053; 81001; 82010; 82550; 82553; 83735; 83880; 84484; 85027; 85610; 93005; 93306; G0480; G0481; J0360; J1940; J2270

== ENCOUNTER 2017-05-20 17:48 | Emergency (ER) | payer OTHER ==
[~2017-05-20] VITALS: Ht 185.4 cm; Wt 144.7 kg
[~2017-05-20 17:48] MED LIST: BENA20TA2 PO; CARV25TA PO; FURO-68 PO; HYDR-2868 PO; LOSA50TA6 PO; POTA20TA84 PO
--- NOTE | 2017-05-20 18:28 | PHYS DOC ---
General Chief Complaint: MULTIPLE COMPLAINTS Stated Complaint: MULTIPLE COMPLAINTS Time Seen by MD: 18:07 Source: patient Exam Limitations: no limitations Problems: History of Present Illness Initial Comments Patient is a 37-year-old male who comes to the ED complaining of dyspnea and leg pain. Patient states he has history of hypertension and congestive heart failure, states he had a heart catheterization 2 years ago at [facility] which revealed ejection fraction at that time of 20%. Patient states that he used to follow with the [facility] however discontinued all medications approximately 6 months ago. He says he's been doing well up until the past week "when the weather changed" and he developed slowly increasing lower extremity edema with concomitantly increasing dyspnea on exertion. He says he's had leg pain fatigue and malaise as well as a dry nonproductive cough. He's had chest tightness with no fever chills or body aches. He states that earlier today he took a hydrocodone due to his leg pain, he also admits to smoking methamphetamine earlier today and admits he does that semi-regularly to "self medicate for his ADD." Patient does to be stimulated/altered. Timing/Duration: 1 week, getting worse Severity: severe Modifying Factors: improves with medication, worse with movement Associated Symptoms: cough, malaise (including), shortness of breath ( sedatives), weakness (follows:) Allergies: Coded Allergies: sulfamethoxazole (Verified Allergy, Intermediate, 10/07/16) trimethoprim (Verified Allergy, Intermediate, 10/07/16) Past Medical History Medical History: congestive heart failure, hepatitis (B), hypertension, other Surgical History: other (heart catheterization 2 years ago at [facility] ejection fraction 20%) Social History Smoker: cigarettes Alcohol: none Drugs: marijuana, other (methamphetamine, history of IV drug use) Review of Systems Constitutional: denies chills, denies diaphoresis, denies fever, malaise, weakness EENTM: denies ear pain, denies throat pain, denies throat swelling Respiratory: cough, orthopnea, shortness of breath (paroxysmal nocturnal dyspnea) Cardiovascular: chest pain, edema Gastrointestinal: denies abdominal pain, denies constipation, denies diarrhea, denies nausea, denies vomiting Genitourinary: denies dysuria, denies frequency, denies hematuria Musculoskeletal: denies back pain, denies joint swelling, muscle pain, denies neck pain Psychiatric/Neurological: denies headache, denies numbness, denies paresthesia , denies seizure Hematologic/Lymphatic: denies blood clots, denies easy bleeding, denies easy bruising Physical Exam General Appearance: mild distress (conversational dyspnea), obese Eyes: bilateral eye normal inspection, bilateral eye PERRL, bilateral eye EOMI Ear, Nose, Throat: hearing grossly normal, normal ENT inspection, normal pharynx Neck: non-tender, supple Respiratory: chest non-tender, decreased breath sounds (with fair to good air movement rales at the bases with faint diffuse wheeze) Cardiovascular: normal peripheral pulses, tachycardia Gastrointestinal: normal bowel sounds, non tender, soft Back: no CVA tenderness, no vertebral tenderness Extremities: normal range of motion, pelvis stable, other (3+ pitting lower extremity edema bilaterally involving the lower legs with chronic venous stasis skin changes) Neurologic/Psychiatric: spinning lathe operator II-XII nml as tested, no motor/sensory deficits, alert, oriented x 3, other (very alert and talkative tangential with pressured speech) Orders, Labs, Meds EKG: Sinus tachycardia 111 bpm, LVH no STEMI changes. Study is similar to prior study dated October 07, 2016. Interpreted by Dr. Christine. Chest AP: Poor technique due to body habitus, enlarged cardiac silhouette with cephalization no apparent discrete infiltrate. Interpreted by Dr. Christine. 2003: Lab called me with a critical troponin of 0.228. I discussed this with the patient and notified him he would need inpatient treatment, I would need to call a leach cell operator that he may require transfer to [facility]. He had indicated that he was not going to stay for admission so I asked him if he was willing to stay and discussed risks and benefits of staying versus leaving. He has his 2 children with him and has a friend in the waiting room he is going to discuss possible childcare and is to notify me of his decision as quickly as possible. Other pertinent labs: D-dimer 0.45, BNP 4482, Lactate 2.0, t. bili 1.2, AST 61, ALT 80, urine drug screen positive for methamphetamine, cannabinoids, and opiates 2018: Patient was called into the room and advise me he is willing to stay or be transferred. skate boarder cardiology paged. 2024: I discussed the patient with on-call cardiology Dr. Ely. After thorough discussion of the patient, his history and presentation and results he feels given the patient's history and lab findings patient should be transferred to [facility] and admitted to contract administration specialist hospitalist. He requests nitroglycerin drip aiming for systolic blood pressure less than 150. He recommends no anticoagulation at this time. skate boarder hospitalist is being paged at this time. 2120: I discussed the patient with Dr. Jimenez contract administration specialist hospitalist at [facility]. She accepts the patient for CVC admission. Impressions: Acute on chronic congestive heart failure. Elevated troponin Malignant hypertension Methamphetamine abuse Noncompliance Marijuana and opiate abuse. History of hepatitis B Departure Time of Disposition: 20:29 Disposition: 02 XFER SHT-TRM HOSP Condition: GUARDED Additional Instructions: EMS transfer to [facility] for CCU admission Dr. Jimenez is accepting Dr. Collins to be consulted. TERESA CHRISTINE DO May 20, 2017 18:28
[2017-05-20] MEDS ORDERED: ASPIRIN 81 MG TAB.CHEW PO ONE (18:30)
[2017-05-20] MEDS ORDERED: IPRATRPIUM/ALBUTEROL 0.5/2.5MG 3 ML NEBU. NEB ONE (18:30)
[2017-05-20] MEDS ORDERED: FUROSEMIDE 40 MG/4 ML VIAL IVP ONE (18:30)
[2017-05-20] MEDS ORDERED: NITROGLYCERIN SUBLINGUAL 0.4 MG BOTTLE OF 25. SL PRN (18:30)
--- NOTE | 2017-05-20 18:48 | EKG ---
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
[2017-05-20 19:10] LABS: BASO # 0.1 x10^3/uL (0.0-0.2); BASO % 1 % (0-3); EOS # 0.5 x10^3/uL (0.0-0.7); EOS % 5 % (0-3); HEMATOCRIT 45.3 % (39.0-53.0); HEMOGLOBIN 15.4 g/dL (13.0-17.5); LYMPH # 2.6 x10^3/uL (1.0-4.8); LYMPH % 25 % (24-48); MEAN CORPUSCULAR HEMOGLOBIN 30 pg (25-35); MEAN CORPUSCULAR HGB CONC 34 g/dL (31-37); MEAN CORPUSCULAR VOLUME 89 fL (79-100); MONO # 0.6 x10^3/uL (0.0-1.1); MONO % 6 % (0-9); NEUT # 6.6 x10^3uL (1.8-7.7); NEUT % 63 % (31-73); PLATELET COUNT 229 x10^3/uL (140-400); RED BLOOD COUNT 5.11 x10^6/uL (4.30-5.70); RED CELL DISTRIBUTION WIDTH 14.5 % (11.5-14.5); WHITE BLOOD COUNT 10.4 x10^3/uL (4.0-11.0)
[2017-05-20 19:32] LABS: ALBUMIN/GLOBULIN RATIO 0.7 (1.0-1.7); CALCIUM 8.3 mg/dL (8.5-10.1); CREATININE 1.2 mg/dL (0.7-1.3); GFR 67.8; POTASSIUM 3.6 mmol/L (3.5-5.1); TOTAL BILIRUBIN 1.2 mg/dL (0.2-1.0); TOTAL PROTEIN 7.4 g/dL (6.4-8.2)
[2017-05-20 19:38] LABS: BILIRUBIN,URINE NEG (NEG); CLARITY,URINE CLEAR; COLOR,URINE AMBER; GLUCOSE,URINE NEG (NEG)
[2017-05-20 19:39] LABS: BACTERIA,URINE FEW /HPF (0-FEW); NITRITE,URINE NEG (NEG); RBC,URINE 0 /HPF (0-2); SQUAMOUS EPITHELIAL CELL,UR OCC /LPF; UROBILINOGEN,URINE 1 mg/dL (0.2 mg/dL); WBC,URINE OCC /HPF (0-4)
[2017-05-20 20:02] LABS: BARBITURATES NEG (NEG); BENZODIAZEPINES NEG (NEG); CANNABINOIDS POS (NEG); COCAINE NEG (NEG); METHADONE NEG (NEG); OPIATES POS (NEG); PHENCYCLIDINE NEG (NEG)
[2017-05-20 20:03] LABS: AMPHETAMINE/METHAMPHETAMINE POS (NEG)
[2017-05-20] MEDS ORDERED: NITROGLYCERIN PREMIX 250 ML IV ONE ×2 (20:29→20:45)
[2017-05-20 21:54] VITALS: BP 178/110
[2017-05-20] MEDS ORDERED: MORPHINE SULFATE 4 MG/ML DISP.SYRIN. ONE (22:38)
--- NOTE | 2017-05-21 07:12 | RAD ---
Portable AP upright view CXR: Clinical indications: CHF. Shortness of air for 1 week. Comparison: October 07, 2016. Findings: No acute lung infiltrate or pleural effusion or pulmonary edema or lung mass or pneumothorax is seen. The heart size, pulmonary vasculature, mediastinum and both ivtet are stable. Impression: No acute radiographic abnormality is seen.
== END 2017-05-21 03:41 | disposition short-term general hospital (02) ==
LOC: ER 17:48
DX: I11.0 Hypertensive heart disease with heart failure (principal); I50.9 Heart failure, unspecified; M79.662 Pain in left lower leg; M79.661 Pain in right lower leg; R79.89 Other specified abnormal findings of blood chemistry; F15.10 Other stimulant abuse, uncomplicated; F11.10 Opioid abuse, uncomplicated; F12.10 Cannabis abuse, uncomplicated; Z91.19 Patient's noncompliance with other medical treatment and regimen; F17.210 Nicotine dependence, cigarettes, uncomplicated; Z88.1 Allergy status to other antibiotic agents
CPT/HCPCS: 36415; 71010; 80053; 80307; 81001; 82550; 83605; 83690; 83880; 84484; 85025; 85379; 85610; 85730; 87040; 93005; 94640; 96365; 96375; 99285; G0480; J1940; J3490; J7620; 96374; G0479

== ENCOUNTER 2017-06-25 15:36 | Emergency (ER) | payer OTHER ==
[~2017-06-25] VITALS: Ht 185.4 cm; Wt 144.7 kg
[2017-06-25] MEDS ORDERED: hydrALAZINE 20 MG/ML VIAL. IV ONE (16:45)
[2017-06-25] MEDS ORDERED: IPRATRPIUM/ALBUTEROL 0.5/2.5MG 3 ML NEBU. NEB ONE (16:45)
--- NOTE | 2017-06-25 16:56 | PHYS DOC ---
Past History Past Medical History: CHF, COPD Past Surgical History: No Surgical History Alcohol Use: None Additional Alcohol Information: Pt stopped using meth 5 days ago, and will be positive for marjuana Drug Use: None Adult General Chief Complaint Chief Complaint: SHORTNESS OF BREATH HPI HPI Patient is a 37 year old male who presents with complaint of shortness of breath. Patient states symptoms have been worsening over the past 2 weeks but became severe over the past 2 days. Patient states he has history of congestive heart failure and COPD. Patient states that he does not follow with cardiology or primary care at this time. Patient was hospitalized last week at [facility] for treatment of congestive heart failure but patient left AGAINST MEDICAL ADVICE during his admission as he was not feeling that he was being taken care of at that time. The patient presented to [facility] 2 days ago as he was having worsening cough and shortness of breath. The patient was started on Keflex at that facility and was discharged home. Patient states that this has not helped with his symptoms. The patient is on Lasix and has been taking it as prescribed. Patient denies any chest pain or abdominal pain. Patient states that his cough has been productive of green sputum. Review of Systems Review of Systems Constitutional: Denies fever or chills [] Eyes: Denies change in visual acuity, redness, or eye pain [] HENT: Denies nasal congestion or sore throat [] Respiratory: Productive cough, shortness of breath[] Cardiovascular: Dyspnea on exertion, denies chest pain[] GI: Denies abdominal pain, nausea, vomiting, bloody stools or diarrhea [] : Denies dysuria or hematuria [] Musculoskeletal: Denies back pain or joint pain [] Integument: Denies rash or skin lesions [] Neurologic: Denies headache, focal weakness or sensory changes [] All other systems were reviewed and found to be within normal limits, except as documented in this note. Current Medications Current Medications Current Medications Medications (Trade) Dose Ordered Sig/Rubina Start Time Stop Time Status Last Admin Dose Admin Albuterol/ Ipratropium (Duoneb) 6 ml 1X ONCE 06/25/17 16:45 06/25/17 16:46 DC Hydralazine HCl (Apresoline) 10 mg 1X ONCE 06/25/17 16:45 06/25/17 16:46 DC Allergies Allergies Allergies Coded Allergies Type Severity Reaction Last Updated Verified sulfamethoxazole Allergy Intermediate 3/28/17 Yes trimethoprim Allergy Intermediate 10/07/16 Yes Physical Exam Physical Exam Constitutional: Alert, afebrile, appears in mild to moderate respiratory distress. [] HENT: Normocephalic, atraumatic, bilateral external ears normal, oropharynx moist, no oral exudates, nose normal. [] Eyes: PERRLA, EOMI, conjunctiva normal, no discharge. [] Neck: Normal range of motion, no tenderness, supple, no stridor. [] Cardiovascular:Heart rate regular rhythm, no murmur [] Lungs & Thorax: Moderately restricted air movement bilaterally, faint expiratory wheezes, fine rales in the bilateral lung bases[] Abdomen: Bowel sounds normal, soft, no tenderness, no masses, no pulsatile masses. [] Skin: Warm, dry, no erythema, no rash. [] Back: No tenderness, no CVA tenderness. [] Extremities: No tenderness, no cyanosis, no clubbing, ROM intact, 1+ pedal edema. [] Neurologic: Alert and oriented X 3, normal motor function, normal sensory function, no focal deficits noted. [] Current Patient Data Vital Signs Vital Signs Date Time Temp Pulse Resp B/P (MAP) Pulse Ox O2 Delivery O2 Flow Rate FiO2 06/25/17 16:01 98.3 91 22 94 EKG EKG Interpreted by me: Heart rate 89, sinus rhythm, prolonged QT interval, leftward axis noted yesterday/T-wave abnormalities present[] Radiology/Procedures Radiology/Procedures [address] [address] IMAGING REPORT Signed PATIENT: PORTER CASAS ACCOUNT: [id number] : 1980 LOCATION: ER AGE: 37 SEX: M EXAM STATUS: REG ER ORD. PHYSICIAN: FRED RAPHAEL MD REASON: shortness of breath PROCEDURE: CHEST PA & LATERAL Chest, 2 views, 06/25/2017: History: Shortness of breath, smoker Comparison is made to a study from 05/20/2017. The heart is mildly enlarged. The pulmonary vascularity is within normal limits. No pulmonary infiltrates are seen. There is no evidence of pleural fluid. IMPRESSION: 1. Mild cardiomegaly. 2. No acute abnormality is detected. DICTATED AND SIGNED BY: SUSSY DU MD DATE: 06/25/17 1736 CC: FRED RAPHAEL MD; PCP,NO ~ [] Course & Med Decision Making Course & Med Decision Making Pertinent Labs and Imaging studies reviewed. (See chart for details) The patient was started on IV hydralazine for treatment of the patient's elevated blood pressure. This resulted in an adequate decrease in blood pressure. The patient expressed improvement in symptoms with blood pressure treatment and with DuoNeb which was given in the emergency department. The patient's lab work shows an elevated BNP level as well as an elevated troponin level which is likely due to heart strain from accelerated hypertension resulting in congestive heart failure. I spoke with Dr. Ely of cardiology regarding the patient. He asked that the patient be transferred to [facility] due to resources available for further evaluation and treatment of the patient's condition. Patient admitted to Dr. Sandra. Patient will be transferred by ground ambulance. Dragon Disclaimer Dragon Disclaimer This electronic medical record was generated, in whole or in part, using a voice recognition dictation system. Departure Departure: Impression: Primary Impression: Acute on chronic congestive heart failure Additional Impressions: Accelerated hypertension Elevated troponin Disposition: XFER [facility] Condition: GUARDED Referrals: PCP,NO (PCP) Problem Qualifiers Primary Impression: Acute on chronic congestive heart failure Congestive heart failure type: unspecified congestive heart failure type Qualified Codes: I50.9 - Heart failure, unspecified FRED RAPHAEL MD Jun 25, 2017 16:56
[2017-06-25 17:12] LABS: BASO # 0.1 x10^3/uL (0.0-0.2); BASO % 1 % (0-3); EOS # 0.7 x10^3/uL (0.0-0.7); EOS % 6 % (0-3); HEMATOCRIT 46.2 % (39.0-53.0); HEMOGLOBIN 15.1 g/dL (13.0-17.5); LYMPH # 2.7 x10^3/uL (1.0-4.8); LYMPH % 22 % (24-48); MEAN CORPUSCULAR HEMOGLOBIN 29 pg (25-35); MEAN CORPUSCULAR HGB CONC 33 g/dL (31-37); MEAN CORPUSCULAR VOLUME 87 fL (79-100); MONO # 1.1 x10^3/uL (0.0-1.1); MONO % 9 % (0-9); NEUT # 7.5 x10^3uL (1.8-7.7); NEUT % 61 % (31-73); PLATELET COUNT 308 x10^3/uL (140-400); RED BLOOD COUNT 5.28 x10^6/uL (4.30-5.70); RED CELL DISTRIBUTION WIDTH 14.2 % (11.5-14.5); WHITE BLOOD COUNT 12.2 x10^3/uL (4.0-11.0)
[2017-06-25 17:14] LABS: AMPHETAMINE/METHAMPHETAMINE NEG (NEG); BARBITURATES NEG (NEG); BENZODIAZEPINES NEG (NEG); CANNABINOIDS NEG (NEG); COCAINE NEG (NEG); METHADONE NEG (NEG); OPIATES NEG (NEG); PHENCYCLIDINE NEG (NEG)
[2017-06-25 17:21] LABS: BACTERIA,URINE 0 /HPF (0-FEW); BILIRUBIN,URINE NEG (NEG); CLARITY,URINE CLEAR; COLOR,URINE STRAW; GLUCOSE,URINE NEG (NEG); NITRITE,URINE NEG (NEG); RBC,URINE 0 /HPF (0-2); UROBILINOGEN,URINE 0.2 mg/dL (0.2 mg/dL); WBC,URINE 0 /HPF (0-4)
--- NOTE | 2017-06-25 17:21 | EKG ---
[address] [address] Test Date: 2017-06-25 Test Time: 17:14:52 Pat Name: PORTER CASAS Department: Room: Gender: M Small Piece Cutter: TERESA : 1980 Requested By: FRED RAPHAEL Order Number: [id number] Reading MD: Jorgito Winn MD Measurements Intervals [place] Rate: 89 P: 43 TX: 168 QRS: -4 QRSD: 110 T: 85 QT: 398 QTc: 485 Interpretive Statements SINUS RHYTHM NON-SPECIFIC ST/T CHANGES Electronically Signed On 06-30-2017 14:42:41 FLORAL ARRANGER by Jorgito Winn MD
[2017-06-25 17:22] LABS: SQUAMOUS EPITHELIAL CELL,UR FEW /LPF
[2017-06-25 17:34] LABS: ALBUMIN 3.1 g/dL (3.4-5.0); ALBUMIN/GLOBULIN RATIO 0.6 (1.0-1.7); CALCIUM 8.7 mg/dL (8.5-10.1); CREATININE 1.2 mg/dL (0.7-1.3); GFR 67.8; MAGNESIUM 2.1 mg/dL (1.8-2.4); POTASSIUM 3.9 mmol/L (3.5-5.1); TOTAL BILIRUBIN 0.8 mg/dL (0.2-1.0)
[2017-06-25 19:20] VITALS: BP 134/94
== END 2017-06-25 21:37 | disposition short-term general hospital (02) ==
LOC: ER 15:36
DX: I11.0 Hypertensive heart disease with heart failure (principal); I50.9 Heart failure, unspecified; J44.9 Chronic obstructive pulmonary disease, unspecified; Z88.1 Allergy status to other antibiotic agents
CPT/HCPCS: 36415; 71020; 80053; 80307; 81001; 82553; 83735; 83880; 84484; 85025; 93005; 94640; 96374; 99285; J0360; J7620; G0479

== ENCOUNTER 2017-09-14 17:52 | Inpatient (IN) | payer OTHER ==
[~2017-09-14] VITALS: Ht 185.4 cm; Wt 146.5 kg
[2017-09-14] MEDS ORDERED: METOPROLOL TARTRATE 5 MG/5 ML VIAL. IV ONE (18:30)
[2017-09-14] MEDS ORDERED: cloNIDine HCL 0.1 MG TABLET PO ONE (19:15)
[2017-09-14 19:46] LABS: BASO % 0 % (0-3); EOS # 0.7 x10^3/uL (0.0-0.7); EOS % 6 % (0-3); LYMPH # 2.9 x10^3/uL (1.0-4.8); LYMPH % 25 % (24-48); MEAN CORPUSCULAR HEMOGLOBIN 29 pg (25-35); MEAN CORPUSCULAR HGB CONC 33 g/dL (31-37); MEAN CORPUSCULAR VOLUME 86 fL (79-100); MONO # 0.8 x10^3/uL (0.0-1.1); MONO % 7 % (0-9); NEUT # 7.3 x10^3uL (1.8-7.7); NEUT % 63 % (31-73); PLATELET COUNT 297 x10^3/uL (140-400); RED BLOOD COUNT 5.96 x10^6/uL (4.30-5.70); RED CELL DISTRIBUTION WIDTH 15.1 % (11.5-14.5); WHITE BLOOD COUNT 11.6 x10^3/uL (4.0-11.0)
[2017-09-14 19:52] LABS: BARBITURATES NEG (NEG); BENZODIAZEPINES NEG (NEG); CANNABINOIDS NEG (NEG); COCAINE NEG (NEG); METHADONE NEG (NEG); OPIATES POS (NEG); PHENCYCLIDINE NEG (NEG)
[2017-09-14 19:53] LABS: AMPHETAMINE/METHAMPHETAMINE NEG (NEG)
[2017-09-14 19:57] LABS: ALBUMIN 3.3 g/dL (3.4-5.0); ALBUMIN/GLOBULIN RATIO 0.6 (1.0-1.7); CALCIUM 9.1 mg/dL (8.5-10.1); CREATININE 1.1 mg/dL (0.7-1.3); GFR 74.9; POTASSIUM 4.7 mmol/L (3.5-5.1); TOTAL BILIRUBIN 0.5 mg/dL (0.2-1.0); TOTAL PROTEIN 8.5 g/dL (6.4-8.2)
[2017-09-14] MEDS ORDERED: FUROSEMIDE 40 MG/4 ML VIAL IVP ONE (20:15)
[2017-09-14] MEDS ORDERED: hydrALAZINE 20 MG/ML VIAL. IV ONE (20:30)
[2017-09-14] MEDS ORDERED: NITROGLYCERIN SUBLINGUAL 0.4 MG BOTTLE OF 25. SL PRN (20:45)
[2017-09-14] MEDS ORDERED: ACETAMINOPHEN 325 MG TABLET PO PRN (20:45)
[2017-09-14] MEDS ORDERED: ONDANSETRON PF 4 MG/2 ML VIAL. IV PRN (20:45)
--- NOTE | 2017-09-14 21:23 | PHYS DOC ---
General Chief Complaint: CHEST PAIN Stated Complaint: CHEST PAIN Time Seen by MD: 18:14 Source: patient, EMS, old records Exam Limitations: no limitations Problems: History of Present Illness Initial Comments 37-year-old male brought to the ED by EMS in police custody for chest pain. Patient states that he was discharged from [facility] on Thursday after a short stay for elevated blood pressure and CHF, states he's been taking his lisinopril, carvedilol, and Lasix as directed. Says he's felt weak and fatigued since leaving [place], he's been on house arrest but today was served and arrested by law enforcement with plans to transfer to [facility]. Patient developed chest pain while being arrested described as anterior "tightness" with dyspnea and diaphoresis no nausea or vomiting. Moderate in intensity received aspirin by mouth and nitroglycerin sublingually 2 via EMS without any relief. States he's had increased leg swelling, dry cough, and dyspnea on exertion since leaving [facility]. On arrival patient hypertensive 230s/130s, Lopressor 5 mg IV and ultimately clonidine 0.2 by mouth given. Timing/Duration: other Severity: moderate Modifying Factors: worse with movement, improves with rest Associated Symptoms: chest pain (unless it), other Allergies: Coded Allergies: sulfamethoxazole (Verified Allergy, Intermediate, 10/07/16) trimethoprim (Verified Allergy, Intermediate, 10/07/16) Past Medical History Medical History: congestive heart failure, COPD, hepatitis, hypertension, other Surgical History: other Social History Smoker: non-smoker Alcohol: none Drugs: marijuana, other (h/o methamphetamine) Review of Systems Constitutional: denies chills, diaphoresis, denies fever, malaise, weakness EENTM: denies ear pain, denies nose pain, denies throat pain Respiratory: cough, orthopnea, shortness of breath, denies wheezing Cardiovascular: chest pain, edema, denies palpitations, denies syncope Gastrointestinal: denies abdominal pain, denies nausea, denies vomiting Musculoskeletal: denies back pain, denies joint swelling, denies neck pain Psychiatric/Neurological: denies headache, denies numbness, denies weakness Hematologic/Lymphatic: denies blood clots, denies easy bleeding, denies easy bruising Physical Exam General Appearance: no apparent distress, obese Ear, Nose, Throat: hearing grossly normal, normal ENT inspection, normal pharynx Neck: non-tender, full range of motion, supple Respiratory: chest non-tender, other (Rales with mildly decreased breath sounds at the bases with good air movement no respiratory distress) Cardiovascular: normal peripheral pulses, regular rate, rhythm Gastrointestinal: normal bowel sounds, non tender, soft Back: no CVA tenderness, no vertebral tenderness Extremities: no calf tenderness, pelvis stable, pedal edema (2+ pitting bilaterally) Neurologic/Psychiatric: concreter II-XII nml as tested, no motor/sensory deficits, alert, normal mood/affect, oriented x 3 Skin: normal color, warm/dry Orders, Labs, Meds EKG: Normal sinus rhythm 95 bpm, leftward axis, T contour abnormality, no ST segment elevation interpreted by me PATIENT: PORTER CASAS ACCOUNT: [id number] : 1980 LOCATION: [address] [place] [address] AGE: 37 SEX: M EXAM STATUS: ADM IN ORD. PHYSICIAN: MEG CHRISTINE DO REASON: cp PROCEDURE: PORTABLE CHEST 1V AP portable chest radiograph 09/14/2017 Clinical History: Chest pain since earlier tonight. Hypertension.. An AP erect portable digital radiograph of the chest was obtained. Comparison study is dated 06/25/2017. The cardiac silhouette is mildly enlarged. The thoracic aorta is minimally tortuous. No acute pulmonary infiltrate is seen. No pleural effusion or pneumothorax is noted. Mild degenerative changes are seen involving the thoracic spine. IMPRESSION: No acute abnormality is seen. Electronically signed by: Garret Gamino MD (09/14/2017 11:01 PM) [facility] DICTATED AND SIGNED BY: GARRET GAMINO MD DATE: 09/14/17 8147 CC: LIZET IBRAHIM DO; PCP,NO; MEG CHRISTINE DO ~ Pertinent labs: Troponin 0.095, BNP 4037 Lasix 40 mg IV given shortly before transfer up to fill, 400 mL urine output in ED prior to transfer. 2020: I discussed the patient with area field person Director [employer] Dr Tai. He recommends [facility] admission, will see in am. Dr Ibrahim accepts inpatient telemetry admission. IMPRESSIONS: CP Hypertensive Urgency CHF Departure Disposition: 09 ADMITTED INPATIENT Condition: STABLE MEG CHRISTINE DO Sep 14, 2017 21:23
--- NOTE | 2017-09-14 23:04 | RAD ---
AP portable chest radiograph 09/14/2017 Clinical History: Chest pain since earlier tonight. Hypertension.. An AP erect portable digital radiograph of the chest was obtained. Comparison study is dated 06/25/2017. The cardiac silhouette is mildly enlarged. The thoracic aorta is minimally tortuous. No acute pulmonary infiltrate is seen. No pleural effusion or pneumothorax is noted. Mild degenerative changes are seen involving the thoracic spine. IMPRESSION: No acute abnormality is seen. Electronically signed by: Garret Gamino MD (09/14/2017 11:01 PM) [facility]
--- NOTE | 2017-09-14 23:30 | NUR ---
ADMIT: Pt admitted to unit at @2300 via gurney from ER. Pt is under arrest at this time and accompanied by crime prevention police officer. Pt c/o discomfort while in halfway, pt BP was taken and was 216/125 per report from halfway. Pt was taken to our ER. Pt calm, compliant with cares.
--- NOTE | 2017-09-14 23:45 | NUR ---
During assessment when I asked pt about whether his status should be DNR or FULL code pt said "just let me ". I educated pt on DNR and FULL code statuses to make certain he understood his choices. Pt stated "yeah let me " but then when it was further explained that their would be paperwork and that would now be his legal status moving forward he seemed to change his mind. Pt stated "yeah, go ahead and keep me alive then, I hate paperwork". Pt seems to be in good spirits, laughing and joking with staff but is clearly distressed. Pt denied any SI/HI after further, repeated questioning.
[2017-09-14 23:48] VITALS: BP 177/115
[2017-09-15] VITALS (8 sets, daily range): BP systolic 129–199; BP diastolic 85–137
[2017-09-15] MEDS ORDERED: hydrALAZINE 25 MG TABLET PO ONE
[2017-09-15] MEDS: CARVEDILOL 12.5 MG TABLET PO SCH ×3 (00:01→17:41)
[2017-09-15] MEDS: ACETAMINOPHEN/CODEINE 300/30MG TABLET PO PRN ×2 (00:02→10:42)
--- NOTE | 2017-09-15 00:51 | EKG ---
[address] [address] Test Date: 2017-09-14 Test Time: 17:54:49 Pat Name: PORTER CASAS Department: Room: Gender: M Blueprinter: : 1980 Requested By: MEG CHRISTINE Order Number: [id number] Reading MD: Measurements Intervals [place] Rate: 95 P: 43 SC: 160 QRS: -13 QRSD: 108 T: 83 QT: 372 QTc: 471 Interpretive Statements SINUS RHYTHM LEFT ATRIAL ABNORMALITY LEFTWARD AXIS R-S TRANSITION ZONE IN V LEADS DISPLACED TO THE LEFT QRS(T) CONTOUR ABNORMALITY CONSIDER ANTEROSEPTAL MYOCARDIAL DAMAGE T ABNORMALITY IN HIGH LATERAL LEADS ABNORMAL ECG RI6.01 No previous ECG available for comparison
[2017-09-15] MEDS ORDERED: IPRATRPIUM/ALBUTEROL 0.5/2.5MG 3 ML NEBU. ONE (05:06)
[2017-09-15] MEDS: IPRATRPIUM/ALBUTEROL 0.5/2.5MG 3 ML NEBU. NEB SCH ×3 (05:48→20:00)
[2017-09-15] MEDS: NICOTINE 21MG PATCH. TD SCH (08:09)
[2017-09-15] MEDS: FUROSEMIDE 40 MG TABLET PO SCH (08:13)
[2017-09-15] MEDS ORDERED: LISINOPRIL 20 MG TABLET PO SCH (09:00)
--- NOTE | 2017-09-15 09:03 | NUR ---
[facility] Cardiology notified- Dr. Winn notified via phone
--- NOTE | 2017-09-15 10:31 | PDOC2 ---
ESTER MO DAIRY PROCESSING EQUIPMENT OPERATOR 09/15/17 1031: CONSULT Date of Admission DATE: 09/15/17 TIME: 10:15 Reason for Consult: accelerated hypertension, chest pain Problem List Problems Medical Problems: (1) Chest pain Status: Acute History of Present Illness The patient is a 37-year-old man with known nonischemic cardiomyopathy and malignant hypertension in the setting of chronic methamphetamine abuse who presents to the hospital with complaints of chest pain. He was discharged from [facility] 3 days ago after a stay with malignant hypertension secondary to medication non compliance and substance abuse. He reports that he had resumed his home medications as ordered and denies any change in diet as well as denying any substance abuse since that time. He was apparently being arrested yesterday when he developed chest pain and was transported to the ED. This am he complains of headache and foot pain. He denies any further chest pain and is fairly non communicative about his episode of chest pain yesterday. He just reports being under increased stress. He denies any increased dyspnea or edema since discharge. Past Medical History Echo 05/2017 There is mild concentric left ventricular hypertrophy. The Ejection Fraction is 20-25%. Severe global hypokinesis. Cardiac cath ~[address] [facility] revealed NICM. malignant hypertension, NICM, CHF, medication non compliance, poly substance abuse, ADD Family History CAD, diabetes mellitus Social History + history of tobaccosim, methamphetamine and marijuana use, he denies significant ETOH. UDS was negative for amphetamines this admission. He is currently in custody of [facility] dept. Current Medications HOME CARDIOVASCULAR MEDICATIONS: Include: 1. Lisinopril 40 mg daily. 2. Lasix 40 mg daily. 3. Carvedilol 12.5 mg b.i.d. Current Medications Metoprolol Tartrate (Lopressor Vial) 5 mg 1X ONCE IV Last administered on at 19:41; Start 09/14/17 at 18:30; Stop 09/14/17 at 18:31; Status DC Clonidine HCl (Catapres) 0.2 mg 1X ONCE PO Last administered on 09/14/17at 19:34 ; Start 09/14/17 at 19:15; Stop 09/14/17 at 19:16; Status DC Furosemide (Lasix) 40 mg 1X ONCE IVP Last administered on 09/14/17at 21:05; Start 09/14/17 at 20:15; Stop 09/14/17 at 20:16; Status DC Hydralazine HCl (Apresoline) 5 mg 1X ONCE IV Last administered on 09/14/17at 21: 10; Start 09/14/17 at 20:30; Stop 09/14/17 at 20:31; Status DC Ondansetron HCl (Zofran) 4 mg PRN Q4HRS PRN IV NAUSEA/VOMITING; Start 09/14/17 at 20:45; Stop 09/15/17 at 20:44 Acetaminophen (Tylenol) 650 mg PRN Q4HRS PRN PO FEVER; Start 09/14/17 at 20:45; Stop 09/15/17 at 20:44 Nitroglycerin (Nitrostat) 0.4 mg PRN Q5MIN PRN SL CHEST PAIN; Start 09/14/17 at 20:45; Stop 09/15/17 at 20:44 Albuterol/ Ipratropium (Duoneb) 3 ml RTQID NEB ; Start 09/15/17 at 08:00; Stop at 07:59 Carvedilol (Coreg) 12.5 mg BIDWMEALS PO Last administered on 09/15/17at 08:11; Start 09/15/17 at 00:00 Furosemide (Lasix) 40 mg DAILY PO Last administered on 09/15/17at 08:13; Start at 09:00 Lisinopril (Prinivil) 20 mg DAILY PO Last administered on 09/15/17at 08:12; Start 09/15/17 at 09:00 Acetaminophen/ Codeine Phosphate (Tylenol #3) 1 tab PRN Q6HRS PRN PO MODERATE PAIN Last administered on 09/15/17at 00:02; Start 09/14/17 at 23:45 Hydralazine HCl (Apresoline) 25 mg 1X ONCE PO Last administered on 09/15/17at 00 :00; Start 09/15/17 at 00:00; Stop 09/15/17 at 00:01; Status DC Albuterol/ Ipratropium (Duoneb) 3 ml STK-MED ONCE .ROUTE ; Start 09/15/17 at 05: 06; Stop 09/15/17 at 05:07; Status DC Nicotine (Nicoderm Cq 21mg) 1 patch DAILY TD Last administered on 09/15/17at 08: 09; Start 09/15/17 at 07:00 Active Scripts Active K-Tab ER (Potassium Chloride) 20 Meq Tablet.er 20 Meq PO DAILY 30 Days Coreg (Carvedilol) 25 Mg Tablet 1 Tab PO BID Hydralazine Hcl 25 Mg Tablet 1 Tab PO BID PRN 30 Days Losartan Potassium 50 Mg Tablet 50 Mg PO BID 30 Days Lasix (Furosemide) 40 Mg Tablet 1 Tab PO DAILY Reported Benazepril Hcl 20 Mg Tablet 1 Tab PO DAILY Lasix (Furosemide) 40 Mg Tablet 1 Tab PO DAILY Coreg (Carvedilol) 25 Mg Tablet 1 Tab PO BID Allergies: Coded Allergies: sulfamethoxazole (Verified Allergy, Intermediate, 10/07/16) trimethoprim (Verified Allergy, Intermediate, 10/07/16) Review of System Negative for 10 out of 14 systems reviewed, unless otherwise mentioned above in HPI. Physical Exam \ GENERAL: He is alert and oriented HEAD AND NECK: Unremarkable. CARDIAC: Regular rate and rhythm without any murmurs, rubs or gallops. LUNGS: Clear to auscultation bilaterally. ABDOMEN: Obese, protuberant, nontender, without any fluid wave. EXTREMITIES: Without any significant clubbing or cyanosis, but do have 2+ pitting edema up to the mid alexandre. NEUROLOGIC: No focal deficits. VITALS Vital Signs Date Time Temp Pulse Resp B/P (MAP) Pulse Ox O2 Delivery O2 Flow Rate FiO2 09/15/17 09:47 146/99 (115) 09/15/17 08:12 92 09/15/17 08:00 98.5 16 95 Room Air Labs Laboratory Tests Test 09/14/17 18:54 09/14/17 19:05 09/15/17 00:15 09/15/17 04:00 Urine Opiates Screen Pos (NEG) Urine Methadone Screen Neg (NEG) Urine Barbiturates Neg (NEG) Urine Phencyclidine Screen Neg (NEG) Urine Amphetamine/Methamphetamine Neg (NEG) Urine Benzodiazepines Screen Neg (NEG) Urine Cocaine Screen Neg (NEG) Urine Cannabinoids Screen Neg (NEG) Urine Ethyl Alcohol Neg (NEG) White Blood Count 11.6 x10^3/uL (4.0-11.0) Red Blood Count 5.96 x10^6/uL (4.30-5.70) Hemoglobin 17.0 g/dL (13.0-17.5) Hematocrit 51.0 % (39.0-53.0) Mean Corpuscular Volume 86 fL (79-100) Mean Corpuscular Hemoglobin 29 pg (25-35) Mean Corpuscular Hemoglobin Concent 33 g/dL (31-37) Red Cell Distribution Width 15.1 % (11.5-14.5) Platelet Count 297 x10^3/uL (140-400) Neutrophils (%) (Auto) 63 % (31-73) Lymphocytes (%) (Auto) 25 % (24-48) Monocytes (%) (Auto) 7 % (0-9) Eosinophils (%) (Auto) 6 % (0-3) Basophils (%) (Auto) 0 % (0-3) Neutrophils # (Auto) 7.3 x10^3uL (1.8-7.7) Lymphocytes # (Auto) 2.9 x10^3/uL (1.0-4.8) Monocytes # (Auto) 0.8 x10^3/uL (0.0-1.1) Eosinophils # (Auto) 0.7 x10^3/uL (0.0-0.7) Basophils # (Auto) 0.0 x10^3/uL (0.0-0.2) Sodium Level 138 mmol/L (136-145) Potassium Level 4.7 mmol/L (3.5-5.1) Chloride Level 103 mmol/L (98-107) Carbon Dioxide Level 27 mmol/L (21-32) Anion Gap 8 (6-14) Blood Urea Nitrogen 15 mg/dL (8-26) Creatinine 1.1 mg/dL (0.7-1.3) Estimated GFR (Cockcroft-Gault) 74.9 BUN/Creatinine Ratio 14 (6-20) Glucose Level 108 mg/dL (70-99) Calcium Level 9.1 mg/dL (8.5-10.1) Total Bilirubin 0.5 mg/dL (0.2-1.0) Aspartate Amino Transf (AST/SGOT) 69 U/L (15-37) Alanine Aminotransferase (ALT/SGPT) 90 U/L (16-63) Alkaline Phosphatase 86 U/L (46-116) Troponin I Quantitative 0.095 ng/mL (0-0.055) 0.090 ng/mL (0-0.055) 0.120 ng/mL (0-0.055) YF-Gcl-A-Type Natriuretic Peptide 4037 pg/mL (0-124) Total Protein 8.5 g/dL (6.4-8.2) Albumin 3.3 g/dL (3.4-5.0) Albumin/Globulin Ratio 0.6 (1.0-1.7) Lipase 90 U/L (73-393) Assessment/Plan 1. Chest pain - resolved. Mildly elevated troponin likely secondary to NICM with underlying heart failure and malignant hypertension. Prior cardiac cath ~ 3 yrs ago revealed non ischemic CMP. 2. Hypertensive urgency - UDS negative for methamphetamine this admission. Resume home meds. 3. Nonischemic cardiomyopathy with elevated troponin, likely secondary to underlying heart failure. 4. chronic combined diastolic/systolic heart failure - appears compensated at this time. 5. HX polysubstance abuse 6. tobaccoism 7. morbid obesity with prob JENNIFFER Problems: JUNI QUINONES MD 09/15/17 1655: CONSULT Allergies: Coded Allergies: sulfamethoxazole (Verified Allergy, Intermediate, 10/07/16) trimethoprim (Verified Allergy, Intermediate, 10/07/16) Assessment/Plan Patient seen and examined. Agree with PATTERN MARKING SUPERVISOR's assessment and plan. Chest pain with atypical features and currently resolved Slight troponin elevation probably demand ischemia from uncontrolled hypertension EKG without acute changes. Doubt ACS. Chronic systolic heart failure clinically well compensated. Resume outpatient antihypertensives and titrate for better blood pressure control Thank you for your consultation Problems: ESTER MO APRN Sep 15, 2017 10:31 JUNI QUINONES MD Sep 15, 2017 16:55
--- NOTE | 2017-09-15 11:00 | EKG ---
[address] [address] Test Date: 2017-09-15 Test Time: 09:50:24 Pat Name: PORTER CASAS Department: Room: 122 A Gender: M Certified Prosthetist/Orthotist: TERESA : 1980 Requested By: LIZET RAM Order Number: [id number] Reading MD: Measurements Intervals [place] Rate: 87 P: 43 DE: 170 QRS: 4 QRSD: 112 T: 79 QT: 404 QTc: 487 Interpretive Statements SINUS RHYTHM LEFT ATRIAL ABNORMALITY R-S TRANSITION ZONE IN V LEADS DISPLACED TO THE LEFT T ABNORMALITY IN HIGH LATERAL LEADS PROLONGED QT ABNORMAL ECG RI6.01 No previous ECG available for comparison
[2017-09-15] MEDS ORDERED: KETOROLAC 30 MG/ML VIAL. IV ONE (12:00)
[2017-09-15] MEDS: HYDROcodone/APAP 7.5/325MG 1 TAB TABLET PO PRN ×2 (13:07→20:22)
--- NOTE | 2017-09-15 15:49 | HP ---
ADMIT DATE: 09/14/2017 REASON FOR ADMISSION: Chest pain. HISTORY OF PRESENT ILLNESS: This is a 37-year-old male who was just recently [facility] where he had a stay for severe hypertension secondary to medication noncompliance and substance abuse. He has a history of nonischemic cardiomyopathy and malignant hypertension and methamphetamine use as well as morbid obesity and congestive heart failure and also cardiomyopathy with 20% ejection fraction. He was being taken to halfway and complained of chest pain and so was brought here. He has a police surgeon in the room with him. PAST MEDICAL HISTORY: Mild concentric left ventricular hypertrophy with ejection fraction of 20-25%, severe global hypokinesis, hypertension, morbid obesity, substance abuse, and tobacco abuse. REVIEW OF SYSTEMS: Currently, the patient is feeling a little lightheaded. His feet hurt. He has positive shortness of breath with exertion, increased weight, sweating, generally not feeling that well. OBJECTIVE: VITAL SIGNS: Blood pressure 146/99, previously was 199/137, pulse 84, temperature 97.8, respirations 22, pulse ox 94% on room air. HEENT: TMs were intact. Eyes were clear. Nose patent. Throat clear. Short, large tongue relative to the posterior pharynx. NECK: Supple, without adenopathy. LUNGS: Clear to auscultation. CARDIOVASCULAR: Regular rhythm and rate. ABDOMEN: Soft, nontender. EXTREMITIES: Red, tender feet bilaterally, shiny appearance consistent with possible arterial insufficiency. LABORATORY DATA: White blood cell count is 11.6, hemoglobin 17, hematocrit 51. Troponin 0.095, 0.090, and 0.120. BNP 4037. Drug screen negative. Positive for opiates, which I believe he probably got in the ER. ASSESSMENT: 1. Chest pain, resolved, mildly elevated troponin -- cardiology feels from nonischemic cardiomyopathy and underlying heart failure and malignant hypertension. 2. Hypertensive urgency. Urine drug screen negative for methamphetamine. Resume home meds. 3. Nonischemic cardiomyopathy. 4. 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 5. History of polysubstance abuse. 6. Tobaccoism. 7. Morbid obesity with probably obstructive sleep apnea. PLAN: Monitor blood pressure and give him his medications. Cardiology is assisting. LIZET M. YO, DO DR: LAINE/jose de jesus JOB#: [id number] / [id number]
[2017-09-16] MEDS: ACETAMINOPHEN/CODEINE 300/30MG TABLET PO PRN ×3 (01:05→16:02)
[2017-09-16] MEDS: HYDROcodone/APAP 7.5/325MG 1 TAB TABLET PO PRN ×3 (04:14→20:01)
[2017-09-16 06:17] VITALS: BP 149/95
[2017-09-16 07:28] LABS: BASO # 0.1 x10^3/uL (0.0-0.2); BASO % 1 % (0-3); EOS # 0.7 x10^3/uL (0.0-0.7); EOS % 6 % (0-3); HEMOGLOBIN 16.7 g/dL (13.0-17.5); LYMPH # 3.3 x10^3/uL (1.0-4.8); LYMPH % 29 % (24-48); MEAN CORPUSCULAR HEMOGLOBIN 29 pg (25-35); MEAN CORPUSCULAR HGB CONC 34 g/dL (31-37); MEAN CORPUSCULAR VOLUME 86 fL (79-100); MONO # 0.9 x10^3/uL (0.0-1.1); MONO % 8 % (0-9); NEUT # 6.3 x10^3uL (1.8-7.7); NEUT % 56 % (31-73); PLATELET COUNT 275 x10^3/uL (140-400); RED BLOOD COUNT 5.84 x10^6/uL (4.30-5.70); RED CELL DISTRIBUTION WIDTH 15.5 % (11.5-14.5); WHITE BLOOD COUNT 11.3 x10^3/uL (4.0-11.0)
[2017-09-16 07:45] LABS: ALBUMIN 2.8 g/dL (3.4-5.0); ALBUMIN/GLOBULIN RATIO 0.6 (1.0-1.7); CALCIUM 8.5 mg/dL (8.5-10.1); CREATININE 1.2 mg/dL (0.7-1.3); GFR 67.8; MAGNESIUM 2.2 mg/dL (1.8-2.4); POTASSIUM 4.3 mmol/L (3.5-5.1); TOTAL BILIRUBIN 0.7 mg/dL (0.2-1.0); TOTAL PROTEIN 7.6 g/dL (6.4-8.2)
[2017-09-16] MEDS: FUROSEMIDE 40 MG TABLET PO SCH (09:40)
[2017-09-16] MEDS: LISINOPRIL 20 MG TABLET PO SCH (09:40)
[2017-09-16] MEDS: CARVEDILOL 12.5 MG TABLET PO SCH ×2 (09:41→17:12)
[2017-09-16] MEDS: NICOTINE 21MG PATCH. TD SCH (09:44)
[2017-09-16 10:35] VITALS: BP 150/94
[2017-09-16] MEDS ORDERED: methylPREDNISolone SOD SUCC PF 125 MG/2 ML VIAL. IV ONE (11:20)
[2017-09-16 14:08] VITALS: BP 133/89
[2017-09-16] MEDS ORDERED: methylPREDNISolone SOD SUCC PF 40 MG/ML VIAL. IV ONE (14:45)
--- NOTE | 2017-09-16 17:14 | RAD ---
Clinical indications: Claudication. Bilateral calf pain. Bilateral feet swelling. Smoker. Hypertension. Obesity. Findings: Duplex sonography of the peripheral arterial system of both lower extremities including molina scale evaluation and color flow evaluation and spectral waveform analysis was performed.Triphasic waveforms are seen. No occlusive disease is seen. No significant plaque formation or stenosis is identified. Peak systolic flow velocities are as follows: Right leg: common femoral artery- 90 cm/sec, profunda femoral artery -67 cm/sec, proximal superficial femoral artery -110cm/sec, mid superficial femoral artery -103 cm/sec, distal superficial femoral artery- 71 cm/sec, popliteal artery -58 cm/sec, proximal posterior tibial artery- 57 cm/sec, distal posterior tibial artery- 69 cm/sec, peroneal artery- 45 cm/sec, anterior tibial artery- 52 cm/sec, dorsalis pedis artery -35 cm/sec. Left leg: common femoral artery- 90 cm/sec, profunda femoral artery -66 cm/sec, proximal superficial femoral artery- 89cm/sec, mid superficial femoral artery- 99 cm/sec, distal superficial femoral artery- 92 cm/sec, popliteal artery -51 cm/sec, proximal posterior tibial artery -51 cm/sec, distal posterior tibial artery- 65 cm/sec, peroneal artery -50 cm/sec, anterior tibial artery -55 cm/sec, dorsalis pedis artery- 37 cm/sec. Impression: No significant peripheral arterial vascular disease is seen by duplex sonographic evaluation.
[2017-09-16 19:30] VITALS: BP 140/84
[2017-09-16 21:54] VITALS: BP 149/88
[2017-09-16] MEDS ORDERED: CALCIUM CARBONATE 500 MG TAB.CHEW PO PRN (22:00)
--- NOTE | 2017-09-16 22:49 | PDOC ---
PROVIDER NOTE PROVIDER NOTE PROVIDER NOTE Cardiology f/u note. No acute events. Denies any chest pain O VSS no edema. normal heart tones. labs reviewed. Impression: 1. NICM with HTN urgency RECS 1. continue current meds. 2. Ok to DC from CV standpoint with f/u in 4 weeks. CORTNEY REBOLLAR MD Sep 16, 2017 22:49
[2017-09-16 23:23] VITALS: BP 164/89
[2017-09-17] MEDS: HYDROcodone/APAP 7.5/325MG 1 TAB TABLET PO PRN ×2 (02:21→09:51)
--- NOTE | 2017-09-17 02:38 | NUR ---
At the beginning of the shift pt stated, "I am going to milk you guys for everything I can its my last night here", and continually stating that he will be sent [facility]. At shift pt reporting severe pain in his feet and lower ext. rating the pain a 10/10, worsening when touched. Pt in bed laughing and joking with staff/guard at bedside. Pain medication given, and pt requested to walk the dimas with guard shortly after medication given. Pt "WATCH ME!" and skipped down the hallway. Upon returning to room pt complained of severe pain once again, burning in his chest. Vitals assessed and stable, Sinus tach noted on the monitor with no ST elevation. Offered pt to get something for heart burn, pt declined stating that it was cardiac. Shortly afterward pt and guard heard laughing/talking loudly from the nursing station, notified to keep noise to a minimum for other pts.
--- NOTE | 2017-09-17 05:21 | PN ---
DATE: 09/16/2017 CURRENT PROBLEMS: 1. Chest pain with mildly elevated troponin. 2. Nonischemic cardiomyopathy. 3. Chronic congestive heart failure. 4. Hypertensive urgency. 5. Previous use of methamphetamine. 6. 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 7. History of polysubstance abuse. 8. Tobaccoism. 9. Morbid obesity with probable obstructive sleep apnea. 10. Bilateral foot pain. SUBJECTIVE: The patient has been resting comfortably in his room with the Executive Assistant To General Counsel present. He will be going to shelter when he is discharged. His hypertensive medications have been adjusted. He received one dose of methylprednisolone for his feet. They seemed to be more of a vascular type pain, peripheral vascular disease than any type of infection. His pain is being maintained by the Lortab. He is getting his medications. OBJECTIVE: VITAL SIGNS: Blood pressure 133/89, pulse 70, respirations 22, temperature 97.4, pulse ox 95% on room air. GENERAL: Large, 37-year-old in no acute distress. Color is good. HEENT: Tongue moist. LUNGS: Clear. CARDIOVASCULAR: Regular rhythm and rate with a 2/6 systolic murmur. ABDOMEN: Large and obese, nontender. EXTREMITIES: He has ETHAN hose in place. Feet are definitely red and tender, but do not appear cellulitic. They are not swollen per se, but tender to the touch. LABORATORY DATA: WBC is 11.3, but received some Solu-Medrol yesterday. Chemistry: Sodium 135, BUN 32, AST is 88, ALT is 97, albumin is 2.8. His ABIs are pending. PLAN: Await Cardiology recommendations. Continue current medications. Plan for discharge. LIZET RAM DO DR: LAINE/jose de jesus JOB#: [id number] / [id number]
[2017-09-17 06:07] VITALS: BP 152/92
[2017-09-17 06:11] LABS: ALBUMIN 2.9 g/dL (3.4-5.0); ALBUMIN/GLOBULIN RATIO 0.6 (1.0-1.7); CALCIUM 8.5 mg/dL (8.5-10.1); CREATININE 1.1 mg/dL (0.7-1.3); GFR 74.9; MAGNESIUM 2.1 mg/dL (1.8-2.4); POTASSIUM 5.1 mmol/L (3.5-5.1); TOTAL BILIRUBIN 0.3 mg/dL (0.2-1.0); TOTAL PROTEIN 7.9 g/dL (6.4-8.2)
[2017-09-17 06:29] LABS: BASO % 0 % (0-3); EOS % 0 % (0-3); HEMOGLOBIN 16.9 g/dL (13.0-17.5); LYMPH # 1.6 x10^3/uL (1.0-4.8); LYMPH % 9 % (24-48); MEAN CORPUSCULAR HEMOGLOBIN 28 pg (25-35); MEAN CORPUSCULAR HGB CONC 33 g/dL (31-37); MEAN CORPUSCULAR VOLUME 86 fL (79-100); MONO # 0.4 x10^3/uL (0.0-1.1); MONO % 2 % (0-9); NEUT # 16.2 x10^3uL (1.8-7.7); NEUT % 89 % (31-73); PLATELET COUNT 303 x10^3/uL (140-400); RED BLOOD COUNT 5.96 x10^6/uL (4.30-5.70); RED CELL DISTRIBUTION WIDTH 15.2 % (11.5-14.5); WHITE BLOOD COUNT 18.2 x10^3/uL (4.0-11.0)
[2017-09-17] MEDS ORDERED: methylPREDNISolone SOD SUCC PF 40 MG/ML VIAL. IV ONE (07:30)
[2017-09-17] MEDS: LISINOPRIL 20 MG TABLET PO SCH (07:53)
[2017-09-17] MEDS: FUROSEMIDE 40 MG TABLET PO SCH (07:54)
[2017-09-17] MEDS: NICOTINE 21MG PATCH. TD SCH (07:54)
[2017-09-17] MEDS: CARVEDILOL 12.5 MG TABLET PO SCH (07:54)
[2017-09-17 08:49] LABS: % BANDS 1 % (0-9); % LYMPHS 16 % (24-48); % MONOS 4 % (0-10); % SEGS 79 % (35-66); PLT ESTIMATE ADEQUATE (ADEQUATE)
--- NOTE | 2017-09-17 10:31 | PDOC3 ---
Discharge Summary Visit Information Date of Admission: Sep 14, 2017 Date of Discharge: Sep 17, 2017 Final Diagnosis Problems Medical Problems: (1) Chest pain Status: Acute est pain - resolved. Mildly elevated troponin likely secondary to NICM with underlying heart failure and malignant hypertension. Prior cardiac cath ~3 yrs ago revealed non ischemic CMP. 2. Hypertensive urgency - UDS negative for methamphetamine this admission. Resume home meds. 3. Nonischemic cardiomyopathy with elevated troponin, likely secondary to underlying heart failure. 4. chronic combined diastolic/systolic heart failure - appears compensated at this time. 5. HX polysubstance abuse 6. tobaccoism 7. morbid obesity withROBLEMS: 1. Chest pain with mildly elevated troponin. 2. Nonischemic cardiomyopathy. 3. Chronic congestive heart failure. 4. Hypertensive urgency. 5. Previous use of methamphetamine. 6. 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 7. History of polysubstance abuse. 8. Tobaccoism. 9. Morbid obesity with probable obstructive sleep apnea. 10. Bilateral foot pain. Problems: Brief Hospital Course Allergies Allergies Coded Allergies Type Severity Reaction Last Updated Verified sulfamethoxazole Allergy Intermediate 10/07/16 Yes trimethoprim Allergy Intermediate 10/07/16 Yes Vital Signs Vital Signs Date Time Temp Pulse Resp B/P (MAP) Pulse Ox O2 Delivery O2 Flow Rate FiO2 09/17/17 09:51 92 Room Air 09/17/17 07:54 99 152/92 09/17/17 06:07 97.8 20 Lab Results Laboratory Tests Test 09/16/17 06:30 09/17/17 05:50 White Blood Count 11.3 x10^3/uL (4.0-11.0) 18.2 x10^3/uL (4.0-11.0) Red Blood Count 5.84 x10^6/uL (4.30-5.70) 5.96 x10^6/uL (4.30-5.70) Hemoglobin 16.7 g/dL (13.0-17.5) 16.9 g/dL (13.0-17.5) Hematocrit 50.0 % (39.0-53.0) 51.0 % (39.0-53.0) Mean Corpuscular Volume 86 fL (79-100) 86 fL (79-100) Mean Corpuscular Hemoglobin 29 pg (25-35) 28 pg (25-35) Mean Corpuscular Hemoglobin Concent 34 g/dL (31-37) 33 g/dL (31-37) Red Cell Distribution Width 15.5 % (11.5-14.5) 15.2 % (11.5-14.5) Platelet Count 275 x10^3/uL (140-400) 303 x10^3/uL (140-400) Neutrophils (%) (Auto) 56 % (31-73) 89 % (31-73) Lymphocytes (%) (Auto) 29 % (24-48) 9 % (24-48) Monocytes (%) (Auto) 8 % (0-9) 2 % (0-9) Eosinophils (%) (Auto) 6 % (0-3) 0 % (0-3) Basophils (%) (Auto) 1 % (0-3) 0 % (0-3) Neutrophils # (Auto) 6.3 x10^3uL (1.8-7.7) 16.2 x10^3uL (1.8-7.7) Lymphocytes # (Auto) 3.3 x10^3/uL (1.0-4.8) 1.6 x10^3/uL (1.0-4.8) Monocytes # (Auto) 0.9 x10^3/uL (0.0-1.1) 0.4 x10^3/uL (0.0-1.1) Eosinophils # (Auto) 0.7 x10^3/uL (0.0-0.7) 0.0 x10^3/uL (0.0-0.7) Basophils # (Auto) 0.1 x10^3/uL (0.0-0.2) 0.0 x10^3/uL (0.0-0.2) Sodium Level 135 mmol/L (136-145) 134 mmol/L (136-145) Potassium Level 4.3 mmol/L (3.5-5.1) 5.1 mmol/L (3.5-5.1) Chloride Level 100 mmol/L (98-107) 101 mmol/L (98-107) Carbon Dioxide Level 27 mmol/L (21-32) 25 mmol/L (21-32) Anion Gap 8 (6-14) 8 (6-14) Blood Urea Nitrogen 32 mg/dL (8-26) 31 mg/dL (8-26) Creatinine 1.2 mg/dL (0.7-1.3) 1.1 mg/dL (0.7-1.3) Estimated GFR (Cockcroft-Gault) 67.8 74.9 BUN/Creatinine Ratio 27 (6-20) 28 (6-20) Glucose Level 86 mg/dL (70-99) 134 mg/dL (70-99) Calcium Level 8.5 mg/dL (8.5-10.1) 8.5 mg/dL (8.5-10.1) Magnesium Level 2.2 mg/dL (1.8-2.4) 2.1 mg/dL (1.8-2.4) Total Bilirubin 0.7 mg/dL (0.2-1.0) 0.3 mg/dL (0.2-1.0) Aspartate Amino Transf (AST/SGOT) 88 U/L (15-37) 49 U/L (15-37) Alanine Aminotransferase (ALT/SGPT) 97 U/L (16-63) 82 U/L (16-63) Alkaline Phosphatase 67 U/L (46-116) 69 U/L (46-116) Total Protein 7.6 g/dL (6.4-8.2) 7.9 g/dL (6.4-8.2) Albumin 2.8 g/dL (3.4-5.0) 2.9 g/dL (3.4-5.0) Albumin/Globulin Ratio 0.6 (1.0-1.7) 0.6 (1.0-1.7) Segmented Neutrophils % 79 % (35-66) Band Neutrophils % 1 % (0-9) Lymphocytes % 16 % (24-48) Monocytes % 4 % (0-10) Platelet Estimate Adequate (ADEQUATE) Giant Platelets Occ Brief Hospital Course Mr. Dudley is a 37 old [sex] who presented with [ ] History of Present Illness The patient is a 37-year-old man with known nonischemic cardiomyopathy and malignant hypertension in the setting of chronic methamphetamine abuse who presents to the hospital with complaints of chest pain. He was discharged from [facility] 3 days ago after a stay with malignant hypertension secondary to medication non compliance and substance abuse. He reports that he had resumed his home medications as ordered and denies any change in diet as well as denying any substance abuse since that time. He was apparently being arrested yesterday when he developed chest pain and was transported to the ED. This am he complains of headache and foot pain. He denies any further chest pain and is fairly non communicative about his episode of chest pain yesterday. He just reports being under increased stress. He denies any increased dyspnea or edema since discharge.HE WAS SEEN BY CARDIOLOGY. HIS BP WAS TREATED. HIS PAINFUL FEET WERE ADDRESSED. HIS DOPPLERS WERE NEGATIVE FOR ARTERIAL DISEASE. Discharge Information Condition at Discharge: Improved, Stable Dischare Medications Current Medications Metoprolol Tartrate (Lopressor Vial) 5 mg 1X ONCE IV Last administered on at 19:41; Start 09/14/17 at 18:30; Stop 09/14/17 at 18:31; Status DC Clonidine HCl (Catapres) 0.2 mg 1X ONCE PO Last administered on 09/14/17at 19:34 ; Start 09/14/17 at 19:15; Stop 09/14/17 at 19:16; Status DC Furosemide (Lasix) 40 mg 1X ONCE IVP Last administered on 09/14/17at 21:05; Start 09/14/17 at 20:15; Stop 09/14/17 at 20:16; Status DC Hydralazine HCl (Apresoline) 5 mg 1X ONCE IV Last administered on 09/14/17at 21: 10; Start 09/14/17 at 20:30; Stop 09/14/17 at 20:31; Status DC Ondansetron HCl (Zofran) 4 mg PRN Q4HRS PRN IV NAUSEA/VOMITING; Start 09/14/17 at 20:45; Stop 09/15/17 at 20:44; Status DC Acetaminophen (Tylenol) 650 mg PRN Q4HRS PRN PO FEVER; Start 09/14/17 at 20:45; Stop 09/15/17 at 20:44; Status DC Nitroglycerin (Nitrostat) 0.4 mg PRN Q5MIN PRN SL CHEST PAIN; Start 09/14/17 at 20:45; Stop 09/15/17 at 20:44; Status DC Albuterol/ Ipratropium (Duoneb) 3 ml RTQID NEB ; Start 09/15/17 at 08:00; Stop at 07:59; Status DC Carvedilol (Coreg) 12.5 mg BIDWMEALS PO Last administered on 09/15/17at 08:11; Start 09/15/17 at 00:00; Stop 09/15/17 at 11:14; Status DC Furosemide (Lasix) 40 mg DAILY PO Last administered on 09/17/17at 07:54; Start at 09:00 Lisinopril (Prinivil) 20 mg DAILY PO Last administered on 09/15/17at 08:12; Start 09/15/17 at 09:00; Stop 09/15/17 at 11:13; Status DC Acetaminophen/ Codeine Phosphate (Tylenol #3) 1 tab PRN Q6HRS PRN PO MODERATE PAIN Last administered on 09/16/17at 16:02; Start 09/14/17 at 23:45 Hydralazine HCl (Apresoline) 25 mg 1X ONCE PO Last administered on 09/15/17at 00 :00; Start 09/15/17 at 00:00; Stop 09/15/17 at 00:01; Status DC Albuterol/ Ipratropium (Duoneb) 3 ml STK-MED ONCE .ROUTE ; Start 09/15/17 at 05: 06; Stop 09/15/17 at 05:07; Status DC Nicotine (Nicoderm Cq 21mg) 1 patch DAILY TD Last administered on 09/17/17at 07: 54; Start 09/15/17 at 07:00 Lisinopril (Prinivil) 40 mg DAILY PO Last administered on 09/17/17at 07:53; Start 09/16/17 at 09:00 Carvedilol (Coreg) 25 mg BIDWMEALS PO Last administered on 09/17/17 07:54; Start 09/15/17 at 17:00 Ketorolac Tromethamine (Toradol) 30 mg 1X ONCE IV Last administered on at 13:08; Start 09/15/17 at 12:00; Stop 09/15/17 at 12:01; Status DC Acetaminophen/ Hydrocodone Bitart (Lortab 7.5/325) 1 tab PRN Q6HRS PRN PO PAIN Last administered on 3/8/18at 09:51; Start 09/15/17 at 11:45 Methylprednisolone Sodium Succinate (SOLU-Medrol 125MG VIAL) 125 mg 1X ONCE IV Last administered on 09/16/17at 13:25; Start 09/16/17 at 11:20; Stop 09/16/17 at 11:21; Status DC Methylprednisolone Sodium Succinate (SOLU-Medrol 40MG VIAL) 60 mg 1X ONCE IV Last administered on 09/16/17at 16:01; Start 09/16/17 at 14:45; Stop 09/16/17 at 14: 47; Status DC Calcium Carbonate/ Glycine (Tums) 500 mg PRN Q4HRS PRN PO INDIGESTION; Start at 22:00 Methylprednisolone Sodium Succinate (SOLU-Medrol 40MG VIAL) 20 mg 1X ONCE IV Last administered on 09/17/17at 07:53; Start 09/17/17 at 07:30; Stop 09/17/17 at 07: 31; Status DC Active Scripts Active K-Tab ER (Potassium Chloride) 20 Meq Tablet.er 20 Meq PO DAILY 30 Days Coreg (Carvedilol) 25 Mg Tablet 1 Tab PO BID Hydralazine Hcl 25 Mg Tablet 1 Tab PO BID PRN 30 Days Losartan Potassium 50 Mg Tablet 50 Mg PO BID 30 Days Lasix (Furosemide) 40 Mg Tablet 1 Tab PO DAILY Reported Benazepril Hcl 20 Mg Tablet 1 Tab PO DAILY Lasix (Furosemide) 40 Mg Tablet 1 Tab PO DAILY Coreg (Carvedilol) 25 Mg Tablet 1 Tab PO BID Patient Instructions Patient Instuctions MEDICATIONS RECONCILED. DISCHARGED IN THE CARE OF THE [facility]. LIZET RAM DO Sep 17, 2017 10:31
[2017-09-17 10:36] VITALS: BP 153/93
--- NOTE | 2017-09-17 10:50 | NUR ---
Pt discharged from the hospital back to [facility]. Two senior oracle database developer here to escort out in restraints, Iv discontinued, papers given to Environmental Coordinator. No questions or concerns at this time.
== END 2017-09-17 10:56 | disposition home or self-care (01) | DRG 313 ==
LOC: ER 17:52 → EEVIPCON 20:37 → 1 SOUTH 20:37 → ER 22:25
PROVIDERS: ADMIT Family Medicine; ATTEND Family Medicine
DX: R07.89 Other chest pain (principal); I42.9 Cardiomyopathy, unspecified; E66.01 Morbid (severe) obesity due to excess calories; I50.42 Chronic combined systolic (congestive) and diastolic (congestive) heart failure; Z68.41 Body mass index [BMI] 40.0-44.9, adult; I11.0 Hypertensive heart disease with heart failure; I16.0 Hypertensive urgency; F17.200 Nicotine dependence, unspecified, uncomplicated; G47.33 Obstructive sleep apnea (adult) (pediatric); J44.9 Chronic obstructive pulmonary disease, unspecified; F12.90 Cannabis use, unspecified, uncomplicated; F15.10 Other stimulant abuse, uncomplicated; M79.672 Pain in left foot; M79.671 Pain in right foot; Z88.1 Allergy status to other antibiotic agents; Z88.2 Allergy status to sulfonamides; Z91.14 Patient's other noncompliance with medication regimen; Z83.3 Family history of diabetes mellitus; Z82.49 Family history of ischemic heart disease and other diseases of the circulatory system; Z79.899 Other long term (current) drug therapy
CPT/HCPCS: 36415; 71045; 80053; 80307; 83690; 83735; 83880; 84484; 85007; 85025; 93005; 93925; 96374; 96375; J0360; J1885; J1940; J2920; J2930; J3490; 99285-25; G0479

== ENCOUNTER → 2017-10-28 | Outpatient (CLI) | payer OTHER ==
--- NOTE | 2017-10-28 13:04 | RAD ---
3 views of the lumbar spine 10/28/2017 Indication: Low back pain. Comparison study: None Findings: No evidence of acute fracture or alignment abnormality is identified. Vertebral body heights are maintained. Disc spaces are grossly maintained. No evidence of spondylolysis or spondylolisthesis is seen. Impression: No radiographic evidence of acute osseous abnormality
== END | disposition home or self-care (01) ==
LOC: PMG 12:05
PROVIDERS: ATTEND Family Medicine
DX: M54.5 Low back pain (principal); I13.0 Hypertensive heart and chronic kidney disease with heart failure and stage 1 through stage 4 chronic kidney disease, or unspecified chronic kidney disease; I50.9 Heart failure, unspecified; N18.9 Chronic kidney disease, unspecified
CPT/HCPCS: 72100

== ENCOUNTER → 2017-11-11 | Outpatient (CLI) | payer OTHER ==
[2017-11-11 09:24] LABS: CALCIUM 8.1 mg/dL (8.5-10.1); CREATININE 1.6 mg/dL (0.7-1.3); GFR 48.6; POTASSIUM 4.7 mmol/L (3.5-5.1)
== END | disposition home or self-care (01) ==
LOC: LAB 07:58
PROVIDERS: ATTEND Internal Medicine Cardiovascular Disease
DX: I42.8 Other cardiomyopathies (principal); I13.0 Hypertensive heart and chronic kidney disease with heart failure and stage 1 through stage 4 chronic kidney disease, or unspecified chronic kidney disease; I50.9 Heart failure, unspecified; N18.9 Chronic kidney disease, unspecified; J44.9 Chronic obstructive pulmonary disease, unspecified
CPT/HCPCS: 36415; 80048; 83880

== ENCOUNTER 2017-12-02 09:11 | Emergency (ER) | payer OTHER ==
[~2017-12-02] VITALS: Ht 185.4 cm; Wt 152.0 kg
[2017-12-02 09:49] LABS: BASO # 0.1 x10^3/uL (0.0-0.2); BASO % 1 % (0-3); EOS # 0.5 x10^3/uL (0.0-0.7); EOS % 6 % (0-3); HEMATOCRIT 42.6 % (39.0-53.0); HEMOGLOBIN 14.6 g/dL (13.0-17.5); LYMPH # 2.6 x10^3/uL (1.0-4.8); LYMPH % 27 % (24-48); MEAN CORPUSCULAR HEMOGLOBIN 31 pg (25-35); MEAN CORPUSCULAR HGB CONC 34 g/dL (31-37); MEAN CORPUSCULAR VOLUME 89 fL (79-100); MONO # 0.5 x10^3/uL (0.0-1.1); MONO % 5 % (0-9); NEUT # 5.9 x10^3uL (1.8-7.7); NEUT % 62 % (31-73); PLATELET COUNT 248 x10^3/uL (140-400); RED BLOOD COUNT 4.79 x10^6/uL (4.30-5.70); RED CELL DISTRIBUTION WIDTH 14.8 % (11.5-14.5); WHITE BLOOD COUNT 9.7 x10^3/uL (4.0-11.0)
--- NOTE | 2017-12-02 09:54 | RAD ---
INDICATION: Short of breath. Chest pain beginning this morning. TECHNIQUE: Two-view chest radiograph was obtained. Comparison is from September 14, 2017. FINDINGS: The lungs are clear. There is no pleural effusion. The heart is not enlarged and there is no heart failure. Bony structures are intact. Leads overlie the patient. IMPRESSION: No acute thoracic findings. Electronically signed by: Frantz Esquivel MD (12/02/2017 9:51 AM) [id number]
[2017-12-02 10:04] LABS: ALBUMIN 3.1 g/dL (3.4-5.0); ALBUMIN/GLOBULIN RATIO 0.7 (1.0-1.7); CALCIUM 8.2 mg/dL (8.5-10.1); CREATININE 1.2 mg/dL (0.7-1.3); GFR 67.8; POTASSIUM 4.6 mmol/L (3.5-5.1); TOTAL BILIRUBIN 0.6 mg/dL (0.2-1.0); TOTAL PROTEIN 7.5 g/dL (6.4-8.2)
--- NOTE | 2017-12-02 10:33 | EKG ---
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
[2017-12-02 10:46] LABS: BACTERIA,URINE 0 /HPF (0-FEW); BILIRUBIN,URINE NEG (NEG); CLARITY,URINE CLEAR; COLOR,URINE YELLOW; GLUCOSE,URINE NEG (NEG); HYALINE CASTS, URINE OCC /HPF; NITRITE,URINE NEG (NEG); RBC,URINE 0 /HPF (0-2); SQUAMOUS EPITHELIAL CELL,UR MOD /LPF; UROBILINOGEN,URINE 0.2 mg/dL (0.2 mg/dL)
--- NOTE | 2017-12-02 11:05 | PHYS DOC ---
Past History Past Medical History: CHF, Hypertension Past Surgical History: Other Alcohol Use: None Drug Use: Marijuana, Methamphetamine Social History Narrative: FORMER DRUG USER Adult General Chief Complaint Chief Complaint: CHEST PAIN HPI HPI 37 yo m with a hx of nonischemic cardiomyopathy CHF recent heart cath <3 years without any occlusive lesions who presents to the ED today with chest pain for 2 wks intermittently without and alleviating or exacerbating factors. He has had a dry cough for the past 2 wks as well. His pain is sharp and not radiating. He denies hemoptysis, soa, leg swelling or redness. He denies a hx of PE or dvt. He has an associated headache, and back pain. These are both chronic as well and have been present for greater than 2 wks. His low back pain radiates into the left thigh. he denies any paresthesias, urinary or fecal incontinence. He denies recent surgery or immobilization. ROS neg for abd pain n/v. neg for diaphoresis or neuro deficits. All other review of systems is negative unless otherwise noted in history of present illness. ED course: 37 yo M presented to the ED with chest pain. On arrival, afebrile, blood pressure ~ 141 systolic. pulse within nl limits. On exam, pt is well appearing and nontoxic. reg rate and rhythm and ctab. abd is soft and nontender. extremities have palpable pulse and no edema. 2 + dtrs in the knees. 5/5 strength in the lower ext bilaterally. ekg reviewed by myself and compared to previous shows sinus rhythm with reg rate. st segments congruent. not suggestive of acs. Compared to previous on September 152017. Chest x-ray unremarkable for acute pathology. Blood work unremarkable. Urinalysis unremarkable. one troponin utilized given pain present for more than 6 hours. Heart score 1. The patient has been examined and was not found to have an emergency medical condition. The patient was then discharged home in stable condition to follow up with their primary care physician over the next 2-3 days. The patient was also instructed to f/u with his department chair in the next 3 -4 days. They were to return if their symptoms worsened or if they were concerned for any reason. [id number] discharge instructions and return precautions were given. Patient's questions were answered to their satisfaction. Patient is comfortable with plan. Review of Systems Review of Systems SEE ABOVE. Current Medications Current Medications Current Medications Medications (Trade) Dose Ordered Sig/Rubina Start Time Stop Time Status Last Admin Dose Admin Fentanyl Citrate (Fentanyl 2ml Vial) 50 mcg PRN Q30MIN PRN 12/02/17 09:45 12/03/17 09:44 12/02/17 10:17 50 MCG Allergies Allergies Allergies Coded Allergies Type Severity Reaction Last Updated Verified sulfamethoxazole Allergy Intermediate 12/02/17 Yes trimethoprim Allergy Intermediate 12/02/17 Yes Physical Exam Physical Exam SEE ABOVE Constitutional: Well developed, well nourished, no acute distress, non-toxic appearance. [] HENT: Normocephalic, atraumatic, bilateral external ears normal, oropharynx moist, no oral exudates, nose normal. [] Eyes: PERRLA, EOMI, conjunctiva normal, no discharge. [] Neck: Normal range of motion, no tenderness, supple, no stridor. [] Cardiovascular:Heart rate regular rhythm, no murmur [] Lungs & Thorax: Bilateral breath sounds clear to auscultation [] Abdomen: Bowel sounds normal, soft, no tenderness, no masses, no pulsatile masses. [] Skin: Warm, dry, no erythema, no rash. [] Back: No tenderness, no CVA tenderness. [] Extremities: No tenderness, no cyanosis, no clubbing, ROM intact, no edema. [] Neurologic: Alert and oriented X 3, normal motor function, normal sensory function, no focal deficits noted. [] Psychologic: Affect normal, judgement normal, mood normal. [] Current Patient Data Vital Signs Vital Signs Date Time Temp Pulse Resp B/P (MAP) Pulse Ox O2 Delivery O2 Flow Rate FiO2 12/02/17 10:39 73 16 173/102 (125) 95 Room Air 12/02/17 09:21 97.7 Lab Results Laboratory Tests Test 12/02/17 09:34 12/02/17 10:18 White Blood Count 9.7 x10^3/uL (4.0-11.0) Red Blood Count 4.79 x10^6/uL (4.30-5.70) Hemoglobin 14.6 g/dL (13.0-17.5) Hematocrit 42.6 % (39.0-53.0) Mean Corpuscular Volume 89 fL (79-100) Mean Corpuscular Hemoglobin 31 pg (25-35) Mean Corpuscular Hemoglobin Concent 34 g/dL (31-37) Red Cell Distribution Width 14.8 % (11.5-14.5) H Platelet Count 248 x10^3/uL (140-400) Neutrophils (%) (Auto) 62 % (31-73) Lymphocytes (%) (Auto) 27 % (24-48) Monocytes (%) (Auto) 5 % (0-9) Eosinophils (%) (Auto) 6 % (0-3) H Basophils (%) (Auto) 1 % (0-3) Neutrophils # (Auto) 5.9 x10^3uL (1.8-7.7) Lymphocytes # (Auto) 2.6 x10^3/uL (1.0-4.8) Monocytes # (Auto) 0.5 x10^3/uL (0.0-1.1) Eosinophils # (Auto) 0.5 x10^3/uL (0.0-0.7) Basophils # (Auto) 0.1 x10^3/uL (0.0-0.2) Sodium Level 139 mmol/L (136-145) Potassium Level 4.6 mmol/L (3.5-5.1) Chloride Level 105 mmol/L (98-107) Carbon Dioxide Level 26 mmol/L (21-32) Anion Gap 8 (6-14) Blood Urea Nitrogen 23 mg/dL (8-26) Creatinine 1.2 mg/dL (0.7-1.3) Estimated GFR (Cockcroft-Gault) 67.8 BUN/Creatinine Ratio 19 (6-20) Glucose Level 116 mg/dL (70-99) H Calcium Level 8.2 mg/dL (8.5-10.1) L Total Bilirubin 0.6 mg/dL (0.2-1.0) Aspartate Amino Transferase (AST) 34 U/L (15-37) Alanine Aminotransferase (ALT) 61 U/L (16-63) Alkaline Phosphatase 75 U/L (46-116) Troponin I Quantitative < 0.017 ng/mL (0-0.055) Total Protein 7.5 g/dL (6.4-8.2) Albumin 3.1 g/dL (3.4-5.0) L Albumin/Globulin Ratio 0.7 (1.0-1.7) L Lipase 120 U/L (73-393) Urine Collection Type Unknown Urine Color Yellow Urine Clarity Clear Urine pH 6.0 Urine Specific [place] 1.020 Urine Protein Neg (NEG-TRACE) Urine Glucose (UA) Neg mg/dL (NEG) Urine Ketones (Stick) Neg mg/dL (NEG) Urine Blood Neg (NEG) Urine Nitrite Neg (NEG) Urine Bilirubin Neg (NEG) Urine Urobilinogen Dipstick 0.2 mg/dL (0.2 mg/dL) Urine Leukocyte Esterase Neg (NEG) Urine RBC 0 /HPF (0-2) Urine WBC 1-4 /HPF (0-4) Urine Squamous Epithelial Cells Mod /LPF Urine Bacteria 0 /HPF (0-FEW) Urine Hyaline Casts Occ /HPF EKG EKG [] Radiology/Procedures Radiology/Procedures [] Course & Med Decision Making Course & Med Decision Making Pertinent Labs and Imaging studies reviewed. (See chart for details) [] Dragon Disclaimer Dragon Disclaimer This electronic medical record was generated, in whole or in part, using a voice recognition dictation system. Departure Departure: Impression: Primary Impression: Chest pain Disposition: HOME, SELF-CARE Condition: STABLE Referrals: SAUMYA FERNANDES MD (PCP) Patient Instructions: Chest Pain (Nonspecific) Additional Instructions: Thank you for allowing us to participate in your care today. Followup with your primary care physician in 3 days if your symptoms do not improve. Call your Primary Doctor tomorrow and inform them of your visit today. If you do not have a primary care provider you can ask for a list of our primary care providers. Return to the emergency department you have any new or concerning findings. This should be evaluated by the primary care physician and any necessary consulting services for continued management within a few days after discharge. Return to emergency room if you have any new or concerning symptoms including but not limited to fever, chills, nausea, vomiting, intractable pain, any new rashes, chest pain, shortness of air, uncontrolled bleeding, difficulty breathing, and/or vision loss. If at any time, you are having difficulty getting into your primary care doctor or a specialist, return to the emergency department. GINNA ALVAREZ MD December 02, 2017 11:05
[2017-12-02 11:20] VITALS: BP 161/93
== END 2017-12-02 11:22 | disposition home or self-care (01) ==
LOC: ER 09:11
DX: R07.89 Other chest pain (principal); R51 Headache; I11.0 Hypertensive heart disease with heart failure; I50.9 Heart failure, unspecified; I42.9 Cardiomyopathy, unspecified; F12.10 Cannabis abuse, uncomplicated; F15.10 Other stimulant abuse, uncomplicated; Z88.1 Allergy status to other antibiotic agents; Z88.2 Allergy status to sulfonamides
CPT/HCPCS: 36415; 71046; 80053; 81001; 83690; 84484; 85025; 93005; 96374; 99285; J3010

== ENCOUNTER 2018-02-02 22:20 | Observation (INO) | payer OTHER ==
[~2018-02-02] VITALS: Ht 185.4 cm; Wt 149.7 kg
[~2018-02-02 22:20] MED LIST changes: -BENA20TA2 PO; +BENA20TA4 PO
[2018-02-02 22:50] LABS: BASO # 0.3 x10^3/uL (0.0-0.2); BASO % 2 % (0-3); EOS # 0.5 x10^3/uL (0.0-0.7); EOS % 4 % (0-3); HEMATOCRIT 46.8 % (39.0-53.0); HEMOGLOBIN 15.9 g/dL (13.0-17.5); LYMPH # 3.3 x10^3/uL (1.0-4.8); LYMPH % 23 % (24-48); MEAN CORPUSCULAR HEMOGLOBIN 31 pg (25-35); MEAN CORPUSCULAR HGB CONC 34 g/dL (31-37); MEAN CORPUSCULAR VOLUME 91 fL (79-100); MONO # 0.9 x10^3/uL (0.0-1.1); MONO % 6 % (0-9); NEUT # 9.2 x10^3uL (1.8-7.7); NEUT % 65 % (31-73); PLATELET COUNT 272 x10^3/uL (140-400); RED BLOOD COUNT 5.17 x10^6/uL (4.30-5.70); RED CELL DISTRIBUTION WIDTH 13.2 % (11.5-14.5); WHITE BLOOD COUNT 14.3 x10^3/uL (4.0-11.0)
[2018-02-02] MEDS ORDERED: ASPIRIN 81 MG TAB.CHEW PO ONE (23:00)
--- NOTE | 2018-02-02 23:05 | PHYS DOC ---
Past History Past Medical History: CHF, Hypertension, Other Past Surgical History: Other Alcohol Use: None Drug Use: Marijuana, Methamphetamine Social History Narrative: states he has not used since Aug. Adult General Chief Complaint Chief Complaint: CHEST PAIN HPI HPI 37-year-old male presents with left-sided chest pain. The patient states that he has had chest pressure over the left side of his chest intermittently for the last 2 days. The pain comes and goes. It is moderate in intensity at this time. Patient also complains of a 7 out of 10 headache. The headache feels a pressure behind his eyes. He had a severe headache that woke him from sleep last night and is concerned he will have another one tonight. Currently, his headache is moderate. The patient has not taken his blood pressure medicines for last 2 days. He takes Coreg 25, Lasix 40, and lisinopril 40. The patient has been outside in the sun more last couple of days. He denies fever or chills. He denies shortness of breath or diaphoresis. Review of Systems Review of Systems Constitutional: Denies fever or chills [] Eyes: Denies change in visual acuity, redness, or eye pain [] HENT: Denies nasal congestion or sore throat [] Respiratory: Denies cough or shortness of breath [] Cardiovascular: No additional information not addressed in HPI [] GI: Denies abdominal pain, nausea, vomiting, bloody stools or diarrhea [] : Denies dysuria or hematuria [] Musculoskeletal: Denies back pain or joint pain [] Integument: Denies rash or skin lesions [] Neurologic: Denies headache, focal weakness or sensory changes [] Endocrine: Denies polyuria or polydipsia [] All other systems were reviewed and found to be within normal limits, except as documented in this note. Current Medications Current Medications Current Medications Medications (Trade) Dose Ordered Sig/Rubina Start Time Stop Time Status Last Admin Dose Admin Aspirin (Children'S Aspirin) 324 mg 1X ONCE 02/02/18 23:00 02/02/18 23:01 02/02/18 22:51 324 MG Allergies Allergies Allergies Coded Allergies Type Severity Reaction Last Updated Verified sulfamethoxazole Allergy Intermediate 12/02/17 Yes trimethoprim Allergy Intermediate 12/02/17 Yes Physical Exam Physical Exam Constitutional: Well developed, obese, well nourished, no acute distress, non- toxic appearance. [] HENT: Normocephalic, atraumatic, bilateral external ears normal, oropharynx moist, no oral exudates, nose normal. [] Eyes: PERRLA, EOMI, conjunctiva normal, no discharge. [] Neck: Normal range of motion, no tenderness, supple, no stridor. [] Cardiovascular:Heart rate regular rhythm, no murmur [] Lungs & Thorax: Bilateral breath sounds clear to auscultation [] Abdomen: Bowel sounds normal, soft, no tenderness, no masses, no pulsatile masses. [] Skin: Warm, dry, no erythema, no rash. [] Back: No tenderness, no CVA tenderness. [] Extremities: No tenderness, no cyanosis, no clubbing, ROM intact, no edema. [] Neurologic: Alert and oriented X 3, normal motor function, normal sensory function, no focal deficits noted. [] Psychologic: Affect normal, judgement normal, mood normal. [] Current Patient Data Vital Signs Vital Signs Date Time Temp Pulse Resp B/P (MAP) Pulse Ox O2 Delivery O2 Flow Rate FiO2 02/02/18 22:22 98.4 101 20 96 Room Air Lab Results Laboratory Tests Test 02/02/18 22:32 White Blood Count 14.3 x10^3/uL (4.0-11.0) H Red Blood Count 5.17 x10^6/uL (4.30-5.70) Hemoglobin 15.9 g/dL (13.0-17.5) Hematocrit 46.8 % (39.0-53.0) Mean Corpuscular Volume 91 fL (79-100) Mean Corpuscular Hemoglobin 31 pg (25-35) Mean Corpuscular Hemoglobin Concent 34 g/dL (31-37) Red Cell Distribution Width 13.2 % (11.5-14.5) Platelet Count 272 x10^3/uL (140-400) Neutrophils (%) (Auto) 65 % (31-73) Lymphocytes (%) (Auto) 23 % (24-48) L Monocytes (%) (Auto) 6 % (0-9) Eosinophils (%) (Auto) 4 % (0-3) H Basophils (%) (Auto) 2 % (0-3) Neutrophils # (Auto) 9.2 x10^3uL (1.8-7.7) H Lymphocytes # (Auto) 3.3 x10^3/uL (1.0-4.8) Monocytes # (Auto) 0.9 x10^3/uL (0.0-1.1) Eosinophils # (Auto) 0.5 x10^3/uL (0.0-0.7) Basophils # (Auto) 0.3 x10^3/uL (0.0-0.2) H EKG EKG Sinus tachycardia, rate 102, left axis deviation, poor R-wave progression, no ST elevations or depressions[] Radiology/Procedures Radiology/Procedures [] Impressions: AP chest. HISTORY: Chest pain AP view was taken of the chest. Lungs are free of infiltrates. Heart is normal in size. There is no pleural effusion. IMPRESSION: 1. No acute chest disease. Electronically signed by: Dameon Michael MD (02/02/2018 11:19 PM) [facility] DICTATED AND SIGNED BY: DAMEON MICHAEL MD DATE: 02/02/18 [id number] CC: VALENTÍN MESA DO; SAUMYA FERNANDES MD ~ Course & Med Decision Making Course & Med Decision Making Pertinent Labs and Imaging studies reviewed. (See chart for details) Patient's EKG is not showing any ST elevation. Patient's labs remarkable for an elevated troponin 0.0 to. Review of his chart shows that he frequently has an elevated troponin sometimes significantly higher. He also has an elevated proBNP over 2000. He has had a normal proBNP within the last 6 months. The patient is complaining of subjective shortness of breath. I do not see effusions in his chest x-ray, but he does seem to be somewhat fluid overloaded. I will start diuresis him with 40 mg of Lasix IV. I have given him 10 mg of Lopressor for his elevated blood pressure, but it has not improved. I will give him clonidine 0.1 mg by mouth. I discussed the patient with the hospitalist, Dr. Moore and he has accepted the patient for admission. Discussed this with the patient and he is willing to be admitted for trending and diuresis. [] Dragon Disclaimer Dragon Disclaimer This electronic medical record was generated, in whole or in part, using a voice recognition dictation system. Departure Departure: Referrals: SAUMYA FERNANDES MD (PCP) VALENTÍN MESA DO Feb 02, 2018 23:05
[2018-02-02 23:06] LABS: ALBUMIN 3.4 g/dL (3.4-5.0); ALBUMIN/GLOBULIN RATIO 0.7 (1.0-1.7); CALCIUM 8.7 mg/dL (8.5-10.1); CREATININE 1.2 mg/dL (0.7-1.3); GFR 67.8; POTASSIUM 4.5 mmol/L (3.5-5.1); TOTAL BILIRUBIN 0.5 mg/dL (0.2-1.0); TOTAL PROTEIN 8.1 g/dL (6.4-8.2)
--- NOTE | 2018-02-02 23:22 | RAD ---
AP chest. HISTORY: Chest pain AP view was taken of the chest. Lungs are free of infiltrates. Heart is normal in size. There is no pleural effusion. IMPRESSION: 1. No acute chest disease. Electronically signed by: Dameon Michael MD (02/02/2018 11:19 PM) [facility]
[2018-02-02] MEDS ORDERED: METOPROLOL TARTRATE 5 MG/5 ML VIAL. IV ONE (23:30)
[2018-02-02] MEDS ORDERED: LISINOPRIL 10 MG TABLET PO ONE (23:30)
[2018-02-02] MEDS ORDERED: IV NORMAL SALINE 500ML 500 ML IV ONE (23:30)
[2018-02-02] MEDS ORDERED: KETOROLAC 30 MG/ML VIAL. IV ONE (23:30)
[2018-02-03] MEDS ORDERED: cloNIDine HCL 0.1 MG TABLET PO ONE (00:30)
[2018-02-03] MEDS ORDERED: FUROSEMIDE 40 MG/4 ML VIAL IVP ONE (00:30)
[2018-02-03] MEDS ORDERED: ONDANSETRON PF 4 MG/2 ML VIAL. IV PRN (00:30)
--- NOTE | 2018-02-03 01:15 | NUR ---
Pt was admitted from ER to [facility] room 117 via [facility], accompanied by EMS & nursing staff. Pt transferred from rdewey to bed independently, steady gait noted. Pt here for c/o HTN, headache, left sided chest pain and CHF. Pt stated that he has not taken his home medications "in the last 2 days" and that "I have had much.. 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 Pt placed on Tele, S.tach to SR noted on monitor. Admission assessment completed. Health history and home medications reviewed with pt. Pt lives at home with & 3 young kids. Pt reports "lots of stress with my baby momma." Pt UTD on Pneumonia vaccine. SCDs for VTE. POC reviewed with pt, understanding verbalized. Pt was given written information regarding hospital policies, unit procedures and contact persons. Valuables were checked and left at bedside. Call light within reach. Box lunch provided per request. Last Echo done September, EF=20-25%.
[2018-02-03 01:41] VITALS: BP 156/110
[2018-02-03 01:55] LABS: BACTERIA,URINE 0 /HPF (0-FEW); BARBITURATES NEG (NEG); BENZODIAZEPINES NEG (NEG); BILIRUBIN,URINE NEG (NEG); CANNABINOIDS NEG (NEG); CLARITY,URINE CLEAR; COCAINE NEG (NEG); COLOR,URINE YELLOW; GLUCOSE,URINE NEG (NEG); METHADONE NEG (NEG); NITRITE,URINE NEG (NEG); OPIATES NEG (NEG); PHENCYCLIDINE NEG (NEG); RBC,URINE 0 /HPF (0-2); SQUAMOUS EPITHELIAL CELL,UR OCC /LPF; UROBILINOGEN,URINE 0.2 mg/dL (0.2 mg/dL); WBC,URINE RARE /HPF (0-4)
[2018-02-03 01:56] LABS: AMPHETAMINE/METHAMPHETAMINE NEG (NEG)
[2018-02-03] MEDS ORDERED: LISI40TA PO (03:10)
[2018-02-03] MEDS ORDERED: CYCL-331 PO (03:10)
[2018-02-03] MEDS ORDERED: BUSP7.5T PO (03:10)
[2018-02-03 06:19] VITALS: BP 160/111
[2018-02-03] MEDS ORDERED: CARVEDILOL 12.5 MG TABLET PO SCH (07:00)
[2018-02-03] MEDS ORDERED: LISINOPRIL 20 MG TABLET PO SCH (07:00)
[2018-02-03] MEDS ORDERED: CYCLOBENZAPRINE 10 MG TABLET. PO PRN (07:00)
[2018-02-03] MEDS ORDERED: NICOTINE 21MG PATCH. TD PRN (07:30)
[2018-02-03] MEDS ORDERED: busPIRone 5 MG TABLET. PO SCH (09:00)
[2018-02-03] MEDS ORDERED: FUROSEMIDE 40 MG TABLET PO SCH (09:00)
--- NOTE | 2018-02-03 09:08 | NUR ---
Pt sleeping in room when RN entered. Pt woke easily. Complained of headache. Pt received flexeril this morning, working on getting BP down. Pt informed that cardiology will see him. RN asked patient why he did not take his medications the last 2 days, pt states that he got to busy and forgot. States that he does have all of his medications. Also states, "I wasn't feeling good a few days ago anyway". Will be rechecking BP. Will continue to monitor.
[2018-02-03 10:56] VITALS: BP 118/71
[2018-02-03 15:05] VITALS: BP 113/70
[2018-02-03] MEDS ORDERED: ACETAMINOPHEN 500 MG TABLET PO PRN (15:15)
--- NOTE | 2018-02-03 15:27 | EKG ---
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
--- NOTE | 2018-02-03 16:11 | HP ---
ADMIT DATE: 02/03/2018 HISTORY OF PRESENT ILLNESS: The patient is a 37-year-old male patient who came to the Emergency Room with a complaint of chest pain that is left-sided. The patient states that he has chest pressure over the left side of his chest intermittently for the last 2 days. The pain comes and goes. It is moderate in intensity. He did complain of headache about 7/10, feels a pressure behind his eyes. His headache has wakened him up from sleep last night and is concerned he will have another one tonight. When he was seen in the Emergency Room, he was found to have extremely high blood pressure. He apparently has not taken any of his medications for the last few days. He was on Coreg, lisinopril and furosemide. His blood pressure on arrival was 176/119. He was investigated in the Emergency Room and his first set of cardiac enzymes show troponin to be 0.027 and his EKG showed that he was in sinus tachycardia with a rate of 102 with left axis deviation, poor R-wave progression, no ST segment elevation or depression. The patient was admitted to do 2 more sets of cardiac enzymes and to consult the cardiology team. PAST MEDICAL HISTORY: Significant for hypertension. He has congestive heart failure with an ejection fraction of 20-25%, severe global hypokinesis with mild concentric left ventricular hypertrophy. He has hypertension, morbid obesity, substance abuse, and tobacco abuse. PAST SURGICAL HISTORY: Significant for left heart catheterization. ALLERGIES: He is allergic to SULFAMETHOXAZOLE and TRIMETHOPRIM. MEDICATIONS: He is currently on following medications: He is on Flexeril 10 mg 3 times a day, carvedilol 25 mg twice a day, lisinopril 40 mg once a day, buspirone 7.5 mg twice a day, and furosemide 40 mg daily. FAMILY HISTORY: He has no brothers or sisters. His father is still alive at the age of 65 and is known to have diabetes, back pain, hypertension, congestive heart failure. His mother is alive and is known to have hypertension and diabetes. SOCIAL HISTORY: He is . He lives with his girlfriend. He has 3 children. He smokes half a pack a day. He does not drink alcohol and quit using amphetamine in August 2017. He is currently applying for disability. REVIEW OF SYSTEMS: The patient denied any blurring of vision, cataract, glaucoma or macular degeneration. Denied any earache, tinnitus or sensorineural deafness. Denied any nosebleeds, stuffy nose or postnasal drip. Denied any sore throat, sore tongue, toothache, hoarseness of voice or difficulty swallowing. Denied any nausea, vomiting, diarrhea or constipation. Denied any hematemesis, melena or hematochezia. Denied any dysuria, frequency or hematuria. Did complain of chest pain. Denied any shortness of breath. No nausea or vomiting. Denied any diaphoresis. Did complain of pain in his neck and left arm. PHYSICAL EXAMINATION: GENERAL: On examining him on arrival to the Emergency Room, he looked well and was clearly in no apparent respiratory distress. No pallor, jaundice, cyanosis, or thyromegaly. No jugular venous distention. No lower limb edema. VITAL SIGNS: His heart rate was 101, blood pressure was 176/119, his temperature was 98.4, respiratory rate was 20, and oxygen saturation was 98% on room air. HEAD, EYES, EARS, NOSE, AND THROAT: Showed normocephalic, atraumatic. NECK: Supple. HEART: Showed normal first and second heart sounds with no gallop, rub, or murmur. CHEST: Clear to auscultation. No crepitation or rhonchi. ABDOMEN: Distended, soft, nontender. NEUROLOGIC: He is awake, alert, responding appropriately. Cranial nerves intact. He moves extremities without difficulty. He ambulates without assistance or assistive devices. LABORATORY DATA: His lab work showed a white cell count of 14,300, hemoglobin 16, hematocrit 47, MCV 91, and platelet count 272,000. Serum sodium was 136, potassium 4.5, chloride 103, bicarbonate 27, anion gap of 6, BUN 17, creatinine 1.2. Estimated GFR was 68 mL per minute, his glucose was 160, calcium was 8.7. Total bilirubin, AST, ALT, alkaline phosphatase were normal. His B-type natriuretic peptide was 1553. Total protein was 8.1, albumin was 3.7. Urinalysis showed the urine was yellow, clear with a pH of 5, specific gravity 1.005. The urine was negative for protein, glucose, ketones, blood, nitrite, bilirubin, and leukocyte esterase. There was no rbc's, very rare wbc's, and no bacteria. His urine toxicology screen was negative for opiates, methadone, barbiturates, phencyclidine, amphetamine, methamphetamine, benzodiazepine, cocaine, cannabinoids, and alcohol. His chest x-ray showed that the lungs are free of infiltrate. Heart is normal in size. There is no pleural effusion. ASSESSMENT AND PLAN: The patient was admitted to telemetry bed. We will do 2 more sets of cardiac enzymes. We will check his fasting lipid profile. His echocardiogram in May 2017 showed that the patient has mild concentric left ventricular hypertrophy and ejection fraction of 20-25% with severe global hypokinesis. His cardiac catheterization done at [facility] revealed nonischemic cardiomyopathy. In summary, the patient presented again with malignant hypertension, noncompliance with his medication, nonischemic cardiomyopathy. He claimed that he is not using anymore amphetamine, does not drink alcohol, although he continued to smoke half a pack a day. ANTONIO YOUNG MD DR: ORESTES/jose de jesus JOB#: [id number] / [id number]
--- NOTE | 2018-02-03 16:42 | CONS ---
DATE OF CONSULTATION: 02/03/2018 REASON FOR CONSULTATION: Chest pain. HISTORY OF PRESENT ILLNESS: The patient is a 37-year-old male who previously had a methamphetamine abuse with ejection fraction of 25% and nonischemic cardiomyopathy based on prior outside hospital testing, presented to the hospital in the setting of chest pain with hypertensive urgency in the setting of noncompliance with his medications. Previously unfortunately, the patient had drug abuse and was noncompliant with medications, but his most recent toxicology screen upon this admission revealed that he did not use any amphetamine drugs. He simply did not take his medications. Therefore, likely presented with chest pain. His cardiac enzymes are negative x 3. His laboratory profile otherwise was unremarkable upon initial admission. PAST MEDICAL HISTORY: 1. Nonischemic cardiomyopathy with ejection fraction 25%. 2. Polysubstance abuse. PHYSICAL EXAMINATION: CURRENT VITAL SIGNS: 97.7, 78, 16, 113/70, 93% on room air. GENERAL: He is alert and oriented, in no acute distress. HEAD AND NECK: Unremarkable. CARDIAC: Regular rate and rhythm without murmurs, rubs or gallops. LUNGS: Clear to auscultation. ABDOMEN: Soft, nontender, nondistended, but morbidly obese. NEUROLOGIC: No focal deficits. MUSCULOSKELETAL: No trauma. EXTREMITIES: Mild trace bilateral pitting 1+ edema. DIAGNOSTIC STUDIES: Including hemoglobin, platelets, creatinine and LFTs are within normal limits. BNP is mildly elevated at 1553. Urine toxicology is negative. Imaging reveals a chest x-ray which is unremarkable. EKG is nonspecific with a sinus tachycardia. IMPRESSION: 1. Chest pain in the setting of uncontrolled hypertension with medication noncompliance. 2. Nonischemic cardiomyopathy. RECOMMENDATIONS: Continue home medications, likely okay to discharge in the next 24 hours if his blood pressure has been controlled. Thank you for this consultation and he will follow up in the office in the near future. CORTNEY REBOLLAR MD DR: ROBERTA/jose de jesus JOB#: [id number] / [id number]
--- NOTE | 2018-02-03 17:00 | NUR ---
Pt is discharging. Agrees with discharge plan. IV out and tele off. Pt escorted by staff to front entrance.
--- NOTE | 2018-02-03 17:48 | DS ---
DATE OF DISCHARGE: 02/03/2018 HOSPITAL COURSE: The patient is a 37-year-old male patient who came with chest pain and also headache. His blood pressure was extremely high. He apparently stopped taking his medication about 2 days ago. He has had 3 sets of cardiac enzymes that were negative. His blood pressure became under well control once he took his medications and he was evaluated by the Cardiology team and a decision was made to discharge him home to continue with all of his medication. PHYSICAL EXAMINATION: GENERAL: The time when I saw him in the afternoon, he looked well and was clearly in no apparent distress. No pallor, jaundice, cyanosis, or thyromegaly. No jugular venous distension. No lower limb edema. VITAL SIGNS: Her heart rate was 78, blood pressure was 113/70, temperature was 97.7, respiratory rate was 16, and oxygen saturation was 93%. HEENT: Examination of the head, eyes, ears, nose and throat showed normocephalic, atraumatic. NECK: Supple. HEART: Showed normal first and second sounds. No gallop, rub or murmur. CHEST: Clear to auscultation. No crepitation or rhonchi. ABDOMEN: Distended, soft, nontender. NEUROLOGIC: He was awake, alert, responding appropriately. Cranial nerves are intact. EXTREMITIES: He moves extremities without difficulty. He has 3 sets of cardiac enzymes that ruled out myocardial infarction. DISCHARGE MEDICATIONS: He was discharged home to continue on buspirone 7.5 mg twice a day, carvedilol 25 mg twice a day, Flexeril 10 mg 3 times a day, furosemide 40 mg once a day, and lisinopril 40 mg daily. FINAL DISCHARGE DIAGNOSES: 1. Hypertensive urgency. 2. Nonischemic cardiomyopathy with an ejection fraction 20-25%. 3. Chronic combined diastolic, systolic congestive heart failure. 4. Morbid obesity, nicotine dependence, polysubstance abuse, although he said that he did no longer drink alcohol or use any methamphetamine since 08/2017. ANTONIO YOUNG MD DR: ORESTES/jose de jesus JOB#: [id number] / [id number]
== END 2018-02-03 17:03 | disposition home or self-care (01) ==
LOC: ER 22:20 → INTOOBSV 02-03 00:10 → 1 SOUTH 02-03 00:10
PROVIDERS: ADMIT Internal Medicine; ATTEND Internal Medicine
DX: R07.89 Other chest pain (principal); E66.01 Morbid (severe) obesity due to excess calories; I42.9 Cardiomyopathy, unspecified; I16.0 Hypertensive urgency; I11.0 Hypertensive heart disease with heart failure; I50.40 Unspecified combined systolic (congestive) and diastolic (congestive) heart failure; F17.210 Nicotine dependence, cigarettes, uncomplicated; Z82.49 Family history of ischemic heart disease and other diseases of the circulatory system
CPT/HCPCS: 36415; 71045; 80053; 80307; 81001; 83880; 84484; 85025; 93005; 96361; 96374; 96375; 99285; G0378; G0379; J1885; J1940; J3490; J7040; G0479

== ENCOUNTER 2019-03-29 18:38 | Observation (INO) | payer OTHER ==
[~2019-03-29] VITALS: Ht 182.9 cm; Wt 158.3 kg
[~2019-03-29 18:38] MED LIST changes: +BUSP7.5T PO; +CYCL-331 PO; +LISI40TA PO; -LOSA50TA6 PO; +LOSA50TA86 PO
[2019-03-29] MEDS ORDERED: IV RINGERS SOLUTION,LACTATED 1,000 ML IV SCH (18:40)
--- NOTE | 2019-03-29 18:40 | ED.ADGEN ---
Past History Past Medical History: Anxiety, CAD, CHF, Diabetes, Heart Disease, Hypertension, Renal Disease, Other Past Surgical History: Other Smoking: Cigarettes Alcohol Use: None Drug Use: Marijuana, Methamphetamine Adult General Chief Complaint Chief Complaint ".. I was up in Dr. Cornelius office... and they sent me down here for my chest pain... I ve got lots of health problems from my past drug use.. especially meth.. I got heart failure with a low EF - as low 20 %.. Hypertension, ... I still smoke.. but had chest pain... shortness of breath.. worse today.. ." HPI HPI Patient is a 39 year old male who presents with above hx and complaints of chest pain/chest discomfort. Patient was seen earlier and Dr. Cornelius's office and sent to ED for evaluation of his chest pain. Patient has previous cardiac history due to polysubstance abuse resulting in decreased cardiac output and CHF. He has history of hypertension. Morbid obesity, and dysrhythmias. Patient normally follows with Dr. Taylor. No recent travel or specific ill contacts. Recently released from [facility] after serving a 3 months. Review of Systems Review of Systems Constitutional: Denies fever or chills [] Eyes: Denies change in visual acuity, redness, or eye pain [] HENT: Denies nasal congestion or sore throat [] Respiratory: Complains of shortness of breath [] Cardiovascular: No additional information not addressed in HPI [] GI: Denies abdominal pain, nausea, vomiting, bloody stools or diarrhea [] : Denies dysuria or hematuria [] Musculoskeletal: Denies back pain or joint pain [] Integument: Denies rash or skin lesions [] Neurologic: Denies headache, focal weakness or sensory changes [] Endocrine: Denies polyuria or polydipsia [] All other systems were reviewed and found to be within normal limits, except as documented in this note. Family History Family History Noncontributory Current Medications Current Medications Current Medications Medications (Trade) Dose Ordered Sig/Rubina Start Time Stop Time Status Last Admin Dose Admin Aspirin (Children'S Aspirin) 324 mg 1X ONCE 03/29/19 18:45 03/29/19 18:46 DC 03/29/19 18:57 324 MG Lactated Ringer's 1,000 ml @ 1,000 mls/hr Q1H 03/29/19 18:40 03/29/19 19:39 DC 03/29/19 18:58 1,000 MLS/HR Nitroglycerin (Nitro-Bid Oint) 1 inch 1X ONCE 03/29/19 19:00 03/29/19 19:01 DC 03/29/19 18:57 1 INCH See nursing for home meds Allergies Allergies Allergies Coded Allergies Type Severity Reaction Last Updated Verified sulfamethoxazole Allergy Intermediate 12/02/17 Yes trimethoprim Allergy Intermediate 12/02/17 Yes Physical Exam Physical Exam Constitutional: Moderate acute distress, non-toxic appearance. [] HENT: Normocephalic, atraumatic, bilateral external ears normal, oropharynx moist, no oral exudates, nose normal. [] Eyes: PERRLA, EOMI, conjunctiva normal, no discharge. [] Neck: Normal range of motion, no tenderness, supple, no stridor. [] Cardiovascular: Tachycardia Heart rate regular rhythm, no murmur , PMI to the left Lungs & Thorax: Bilateral breath sounds equal apex with scattered wheezes on auscultation [] Abdomen: Bowel sounds normal, soft, no tenderness, no masses, no pulsatile masses. [] Obese. Skin: Warm, dry, no erythema, no rash. [] Back: No tenderness, no CVA tenderness. [] Extremities: No tenderness, no cyanosis, no clubbing, ROM intact, ankle edema. [] No cording appreciated Neurologic: Alert and oriented X 3, normal motor function, normal sensory function, no focal deficits noted. [] Psychologic: Affect anxious ,judgement normal, mood normal. [] Current Patient Data Vital Signs Vital Signs Date Time Temp Pulse Resp B/P (MAP) Pulse Ox O2 Delivery O2 Flow Rate FiO2 03/29/19 20:12 100 18 169/79 (109) 97 Room Air 03/29/19 18:38 98.1 Lab Results Laboratory Tests Test 03/29/19 18:45 03/29/19 19:23 White Blood Count 14.5 x10^3/uL (4.0-11.0) H Red Blood Count 4.86 x10^6/uL (4.30-5.70) Hemoglobin 14.7 g/dL (13.0-17.5) Hematocrit 44.3 % (39.0-53.0) Mean Corpuscular Volume 91 fL (79-100) Mean Corpuscular Hemoglobin 30 pg (25-35) Mean Corpuscular Hemoglobin Concent 33 g/dL (31-37) Red Cell Distribution Width 13.1 % (11.5-14.5) Platelet Count 294 x10^3/uL (140-400) Neutrophils (%) (Auto) 68 % (31-73) Lymphocytes (%) (Auto) 22 % (24-48) L Monocytes (%) (Auto) 6 % (0-9) Eosinophils (%) (Auto) 4 % (0-3) H Basophils (%) (Auto) 0 % (0-3) Neutrophils # (Auto) 9.9 x10^3uL (1.8-7.7) H Lymphocytes # (Auto) 3.2 x10^3/uL (1.0-4.8) Monocytes # (Auto) 0.9 x10^3/uL (0.0-1.1) Eosinophils # (Auto) 0.5 x10^3/uL (0.0-0.7) Basophils # (Auto) 0.0 x10^3/uL (0.0-0.2) Prothrombin Time 9.3 SEC (9.4-11.4) L Prothrombin Time INR 0.9 (0.9-1.1) Activated Partial Thromboplast Time 26 SEC (23-33) D-Dimer (Felisa) < 0.19 mg/L (0.00-0.50) Sodium Level 138 mmol/L (136-145) Potassium Level 4.9 mmol/L (3.5-5.1) Chloride Level 103 mmol/L (98-107) Carbon Dioxide Level 28 mmol/L (21-32) Anion Gap 7 (6-14) Blood Urea Nitrogen 13 mg/dL (8-26) Creatinine 1.1 mg/dL (0.7-1.3) Estimated GFR (Cockcroft-Gault) 74.1 Glucose Level 201 mg/dL (70-99) H Calcium Level 8.6 mg/dL (8.5-10.1) Magnesium Level 2.2 mg/dL (1.8-2.4) Total Bilirubin 0.3 mg/dL (0.2-1.0) Direct Bilirubin 0.1 mg/dL (0.0-0.2) Aspartate Amino Transferase (AST) 51 U/L (15-37) H Alanine Aminotransferase (ALT) 89 U/L (16-63) H Alkaline Phosphatase 93 U/L (46-116) Creatine Kinase 98 U/L (39-308) Troponin I Quantitative < 0.017 ng/mL (0-0.055) RC-Wdc-V-Type Natriuretic Peptide 56 pg/mL (0-124) Total Protein 7.6 g/dL (6.4-8.2) Albumin 3.3 g/dL (3.4-5.0) L Lipase 137 U/L (73-393) Urine Collection Type Unknown Urine Color Yellow Urine Clarity Clear Urine pH 6.5 Urine Specific [place] 1.025 Urine Protein Trace (NEG-TRACE) Urine Glucose (UA) 100 mg/dL (NEG) Urine Ketones (Stick) Neg mg/dL (NEG) Urine Blood Neg (NEG) Urine Nitrite Neg (NEG) Urine Bilirubin Neg (NEG) Urine Urobilinogen Dipstick 1 mg/dL (0.2 mg/dL) Urine Leukocyte Esterase Neg (NEG) Urine RBC Occ /HPF (0-2) Urine WBC Occ /HPF (0-4) Urine Squamous Epithelial Cells Few /LPF Urine Bacteria Few /HPF (0-FEW) Urine Opiates Screen Neg (NEG) Urine Methadone Screen Neg (NEG) Urine Barbiturates Neg (NEG) Urine Phencyclidine Screen Neg (NEG) Urine Amphetamine/Methamphetamine Pos (NEG) Urine Benzodiazepines Screen Neg (NEG) Urine Cocaine Screen Neg (NEG) Urine Cannabinoids Screen Neg (NEG) Urine Ethyl Alcohol Neg (NEG) EKG EKG I interpretation EKG shows sinus tachycardia and 6 bpm. There is leftward axis. Low voltage. Some contour changes anterior lateral leads. No findings acute STEMI with contralateral changes.[] Radiology/Procedures Radiology/Procedures [][address] [address] IMAGING REPORT Signed PATIENT: PORTER CASAS ACCOUNT: [id number] : 1980 LOCATION: ER AGE: 39 SEX: M EXAM STATUS: REG ER ORD. PHYSICIAN: NEVIN RICHMOND MD REASON: CHEST PAIN PROCEDURE: CHEST PA & LATERAL CHEST PA LATERAL History: Chest pain Comparison: 02/02/2018 portable chest x-ray exam. Findings: Frontal and lateral views of chest were obtained. The cardiomediastinal silhouette is normal. Pulmonary vasculature is normal. The lungs are clear. No pleural effusion or pneumothorax is seen. There is no acute bone abnormality. IMPRESSION: No acute cardiopulmonary process. Electronically signed by: Juanito Hammer MD (03/29/2019 10:29 PM) [facility] DICTATED AND SIGNED BY: JUANITO HAMMER MD DATE: 03/29/192228 CC: NEVIN RICHMOND MD; SAUMYA CORNELIUS MD ~ Course & Med Decision Making Course & Med Decision Making Pertinent Labs and Imaging studies reviewed. (See chart for details) Heart score 4-5 Discussed presentation, testing and treatment plan with Dr. Moore. Will admit for further eval. and cardiology consult. [] Final Impression Final Impression 1. Chest Pain[] 2. Accelerated HTN 3. GERD 4. Morbid Obesity 5. Sleep Apnea 6. Hx CHF/CADz 7. Elevated AST/ALT 51/89 8. Leukocytosis 14.5 9. Tobacco Use 10.Hx. Polysubstance abuse ( Drug Screen + Meth. tonight) 11.DM Dragon Disclaimer Dragon Disclaimer This electronic medical record was generated, in whole or in part, using a voice recognition dictation system. Dragon Disclaimer This chart was dictated in whole or in part using Voice Recognition software in a busy, high-work load, and often noisy Emergency Department environment. It may contain unintended and wholly unrecognized errors or omissions. NEVIN RICHMOND MD Mar 29, 2019 18:40
[2019-03-29] MEDS ORDERED: ASPIRIN 81 MG TAB.CHEW PO ONE (18:45)
[2019-03-29] MEDS ORDERED: NITROGLYCERIN OINT 1 GM PACKET. TP ONE (19:00)
--- NOTE | 2019-03-29 19:13 | EKG ---
[address] [address] Test Date: 2019-03-29 Test Time: 18:50:38 Pat Name: PORTER CASAS Department: Room: Gender: M Chief Radiation Therapist: : 1980 Requested By: NEVIN RICHMOND Order Number: [id number] Reading MD: Jorgito Winn MD Measurements Intervals [place] Rate: 106 P: 156 MT: 130 QRS: -12 QRSD: 88 T: -17 QT: 322 QTc: 429 Interpretive Statements SUPRAVENTRICULAR RHYTHM LEFTWARD AXIS Electronically Signed On 04-10-2019 22:06:18 CDT by Jorgito Winn MD
[2019-03-29 19:15] LABS: BASO % 0 % (0-3); EOS # 0.5 x10^3/uL (0.0-0.7); EOS % 4 % (0-3); HEMATOCRIT 44.3 % (39.0-53.0); HEMOGLOBIN 14.7 g/dL (13.0-17.5); LYMPH # 3.2 x10^3/uL (1.0-4.8); LYMPH % 22 % (24-48); MEAN CORPUSCULAR HEMOGLOBIN 30 pg (25-35); MEAN CORPUSCULAR HGB CONC 33 g/dL (31-37); MEAN CORPUSCULAR VOLUME 91 fL (79-100); MONO # 0.9 x10^3/uL (0.0-1.1); MONO % 6 % (0-9); NEUT # 9.9 x10^3uL (1.8-7.7); NEUT % 68 % (31-73); PLATELET COUNT 294 x10^3/uL (140-400); RED BLOOD COUNT 4.86 x10^6/uL (4.30-5.70); RED CELL DISTRIBUTION WIDTH 13.1 % (11.5-14.5); WHITE BLOOD COUNT 14.5 x10^3/uL (4.0-11.0)
[2019-03-29 19:28] LABS: ALBUMIN 3.3 g/dL (3.4-5.0); CALCIUM 8.6 mg/dL (8.5-10.1); CREATININE 1.1 mg/dL (0.7-1.3); DIRECT BILIRUBIN 0.1 mg/dL (0.0-0.2); GFR 74.1; MAGNESIUM 2.2 mg/dL (1.8-2.4); POTASSIUM 4.9 mmol/L (3.5-5.1); TOTAL BILIRUBIN 0.3 mg/dL (0.2-1.0); TOTAL PROTEIN 7.6 g/dL (6.4-8.2)
[2019-03-29 19:52] LABS: BARBITURATES NEG (NEG); BENZODIAZEPINES NEG (NEG); CANNABINOIDS NEG (NEG); COCAINE NEG (NEG); METHADONE NEG (NEG); OPIATES NEG (NEG); PHENCYCLIDINE NEG (NEG)
[2019-03-29 20:05] LABS: BACTERIA,URINE FEW /HPF (0-FEW); BILIRUBIN,URINE NEG (NEG); CLARITY,URINE CLEAR; COLOR,URINE YELLOW; GLUCOSE,URINE 100 mg/dL (NEG); NITRITE,URINE NEG (NEG); RBC,URINE OCC /HPF (0-2); SQUAMOUS EPITHELIAL CELL,UR FEW /LPF; UROBILINOGEN,URINE 1 mg/dL (0.2 mg/dL); WBC,URINE OCC /HPF (0-4)
[2019-03-29 20:06] LABS: AMPHETAMINE/METHAMPHETAMINE POS (NEG)
[2019-03-29] MEDS ORDERED: ONDANSETRON PF 4 MG/2 ML VIAL. IV PRN (22:15)
[2019-03-29] MEDS ORDERED: ACETAMINOPHEN 325 MG TABLET PO PRN (22:15)
--- NOTE | 2019-03-29 22:32 | RAD ---
CHEST PA LATERAL History: Chest pain Comparison: 02/02/2018 portable chest x-ray exam. Findings: Frontal and lateral views of chest were obtained. The cardiomediastinal silhouette is normal. Pulmonary vasculature is normal. The lungs are clear. No pleural effusion or pneumothorax is seen. There is no acute bone abnormality. IMPRESSION: No acute cardiopulmonary process. Electronically signed by: Juanito Pan MD (03/29/2019 10:29 PM) [facility]
[2019-03-29] MEDS ORDERED: ASPIRIN 81 MG TAB.CHEW PO SCH (23:00)
[2019-03-29 23:21] VITALS: BP 149/105
[2019-03-29] MEDS: MORPHINE SULFATE 2 MG/ML DISP.SYRIN. IV PRN (23:22)
[2019-03-29] MEDS ORDERED: LORA10TA3 PO (23:48)
[2019-03-29] MEDS ORDERED: CLON1TAB11 PO (23:48)
[2019-03-29] MEDS ORDERED: LISD30CA5 PO (23:48)
[2019-03-30 04:37] VITALS: BP 175/74
[2019-03-30] MEDS ORDERED: IPRATRPIUM/ALBUTEROL 0.5/2.5MG 3 ML NEBU. ONE (05:15)
[2019-03-30 05:25] VITALS: BP 175/74
[2019-03-30] MEDS: IPRATRPIUM/ALBUTEROL 0.5/2.5MG 3 ML NEBU. NEB SCH ×3 (05:26→16:14)
[2019-03-30 06:01] LABS: BASO # 0.1 x10^3/uL (0.0-0.2); BASO % 1 % (0-3); EOS # 0.5 x10^3/uL (0.0-0.7); EOS % 4 % (0-3); HEMATOCRIT 41.6 % (39.0-53.0); HEMOGLOBIN 13.6 g/dL (13.0-17.5); LYMPH # 3.2 x10^3/uL (1.0-4.8); LYMPH % 28 % (24-48); MEAN CORPUSCULAR HEMOGLOBIN 30 pg (25-35); MEAN CORPUSCULAR HGB CONC 33 g/dL (31-37); MEAN CORPUSCULAR VOLUME 92 fL (79-100); MONO # 0.8 x10^3/uL (0.0-1.1); MONO % 7 % (0-9); NEUT # 7.1 x10^3uL (1.8-7.7); NEUT % 61 % (31-73); PLATELET COUNT 250 x10^3/uL (140-400); RED BLOOD COUNT 4.52 x10^6/uL (4.30-5.70); RED CELL DISTRIBUTION WIDTH 13.1 % (11.5-14.5); WHITE BLOOD COUNT 11.7 x10^3/uL (4.0-11.0)
[2019-03-30 06:11] LABS: CALCIUM 8.3 mg/dL (8.5-10.1); CREATININE 1.1 mg/dL (0.7-1.3); GFR 74.1; POTASSIUM 4.2 mmol/L (3.5-5.1)
--- NOTE | 2019-03-30 08:11 | PDOC2 ---
SUSANNAH LEO TANK PUMPER PANELBOARD 03/30/19 0811: CARDIAC CONSULT DATE OF CONSULT Date Of Consult DATE: 03/30/19 TIME: 08:06 REASON FOR CONSULT Reason for Consult Chest pain Accelerated hypertension REFERRING PHYSICIAN Referring Physician Dr. Reyes SOURCE Source: Chart review, Patient HPI History of Present Illness This is a 39 yo male, with a known history of hypertension and NICM in the setting of methamphetamine abuse, who presented from primary care office secondary to chest pain. Patient reports her has been experiencing GERD symptoms intermittently for the last month. Yesterday, had lunch at a local [employer] restaurant. Had appointment at primary care office following for medications refills. Began having burning sensation in his central chest. No associated shortness of breath, dizziness, diaphoresis, or nausea/vomiting. Also complained of his "right kidney hurting" and feeling like he was drunk although he only had water at lunch. Due to symptoms, primary care referred him to the ED for further evaluation and treatment. No further pain overnight. Reports compliance with medications. PAST MEDICAL HISTORY Cardiovascular: CHF, HTN, Other (NICM) GI: GERD Psych: Anxiety, Depression, Other (ADHD) PAST SURGICAL HISTORY Past Surgical History: No pertinent history FAMILY HISTORY Family History: Coronary Artery Disease, Diabetes, Hypertension SOCIAL HISTORY ALCOHOL: none Drugs: None (h/o methanphetamine use- clean for 5 months) Lives: with Family CURRENT MEDICATIONS Current Medications Current Medications Aspirin (Children'S Aspirin) 324 mg 1X ONCE PO Last administered on 03/29/19at 18:57; Start 03/29/19 at 18:45; Stop 03/29/19 at 18:46; Status DC Lactated Ringer's 1,000 ml @ 1,000 mls/hr Q1H IV Last administered on 03/29/19at 18:58; Start 03/29/19 at 18:40; Stop 03/29/19 at 19:39; Status DC Nitroglycerin (Nitro-Bid Oint) 1 inch 1X ONCE TP Last administered on 03/29/19at 18:57; Start 03/29/19 at 19:00; Stop 03/29/19 at 19:01; Status DC Ondansetron HCl (Zofran) 4 mg PRN Q4HRS PRN IV NAUSEA/VOMITING; Start 03/29/19 at 22:15; Stop 03/30/19 at 22:14 Morphine Sulfate (Morphine 2mg Syringe) 2 mg QIDPRN PRN IV PAIN Last administered on 03/29/19at 23:23; Start 03/29/19 at 22:15; Stop 03/30/19 at 22:14 Acetaminophen (Tylenol) 650 mg PRN Q4HRS PRN PO FEVER Last administered on 03/30/19at 05:55; Start 03/29/19 at 22:15; Stop 03/30/19 at 22:14 Albuterol/ Ipratropium (Duoneb) 3 ml RTQID NEB Last administered on 03/30/19at 05:27; Start 03/30/19 at 08:00; Stop 03/31/19 at 07:59 Nitroglycerin (Nitro-Bid Oint) 1 inch TID TP ; Start 03/30/19 at 09:00 Enoxaparin Sodium (Lovenox 150mg Syringe) 150 mg Q12HR SQ ; Start 03/30/19 at 09:00 Aspirin (Children'S Aspirin) 81 mg 1X PO ; Start 03/29/19 at 23:00 Influenza Virus Vaccine Quadrival (Afluria Quad 2019-20 (3yr Up) Syringe) 0.5 ml ONCE ONCE VAX IM ; Start 03/30/19 at 15:00; Stop 03/30/19 at 15:01; Status UNV Albuterol/ Ipratropium (Duoneb) 3 ml STK-MED ONCE .ROUTE ; Start 03/30/19 at 05:15; Stop 03/30/19 at 05:15; Status DC Active Scripts Active Reported Loratadine 10 Mg Tablet 10 Mg PO DAILY Vyvanse (Lisdexamfetamine Dimesylate) 30 Mg Capsule 30 Mg PO DAILY Clonazepam 1 Mg Tablet 1 Mg PO PRN BID PRN Cyclobenzaprine Hcl 10 Mg Tablet 10 Mg PO PRN TID PRN LAST DOSE GIVEN: DATE: TIME: NEXT DOSE DUE: DATE: TIME: Lisinopril 40 Mg Tablet 40 Mg PO DAILY LAST DOSE GIVEN: DATE: TIME: NEXT DOSE DUE: DATE: TIME: Lasix (Furosemide) 40 Mg Tablet 40 Mg PO PRN DAILY PRN LAST DOSE GIVEN: DATE: TIME: NEXT DOSE DUE: DATE: TIME: Coreg (Carvedilol) 25 Mg Tablet 25 Mg PO BID LAST DOSE GIVEN: DATE: TIME: NEXT DOSE DUE: DATE: TIME: ALLERGIES Allergies: Coded Allergies: sulfamethoxazole (Verified Allergy, Intermediate, 12/02/17) trimethoprim (Verified Allergy, Intermediate, 12/02/17) ROS Review of Systems 14 point ROS conducted with pertinent positives noted above in HPI. PHYSICAL EXAM General: Alert, Oriented X3, Cooperative, No acute distress HEENT: Atraumatic, Mucous membr. moist/pink Lungs: Clear to auscultation, Normal air movement Heart: Regular rate, Normal S1, Normal S2 Abdomen: Soft, No tenderness, Other (obese ) Extremities: No edema, Normal pulses Skin: No breakdown Neuro: Normal speech, Sensation intact Psych/Mental Status: Mental status NL, Mood NL MUSCULOSKELETAL: No joint tenderness VITALS Vital Signs Vital Signs Date Time Temp Pulse Resp B/P (MAP) Pulse Ox O2 Delivery O2 Flow Rate FiO2 03/30/19 05:28 98 Room Air 03/30/19 05:25 97.5 101 20 175/74 (107) LABS LABS Laboratory Tests Test 03/29/19 18:45 03/29/19 19:23 03/30/19 05:40 03/30/19 07:06 White Blood Count 14.5 x10^3/uL (4.0-11.0) 11.7 x10^3/uL (4.0-11.0) Red Blood Count 4.86 x10^6/uL (4.30-5.70) 4.52 x10^6/uL (4.30-5.70) Hemoglobin 14.7 g/dL (13.0-17.5) 13.6 g/dL (13.0-17.5) Hematocrit 44.3 % (39.0-53.0) 41.6 % (39.0-53.0) Mean Corpuscular Volume 91 fL (79-100) 92 fL (79-100) Mean Corpuscular Hemoglobin 30 pg (25-35) 30 pg (25-35) Mean Corpuscular Hemoglobin Concent 33 g/dL (31-37) 33 g/dL (31-37) Red Cell Distribution Width 13.1 % (11.5-14.5) 13.1 % (11.5-14.5) Platelet Count 294 x10^3/uL (140-400) 250 x10^3/uL (140-400) Neutrophils (%) (Auto) 68 % (31-73) 61 % (31-73) Lymphocytes (%) (Auto) 22 % (24-48) 28 % (24-48) Monocytes (%) (Auto) 6 % (0-9) 7 % (0-9) Eosinophils (%) (Auto) 4 % (0-3) 4 % (0-3) Basophils (%) (Auto) 0 % (0-3) 1 % (0-3) Neutrophils # (Auto) 9.9 x10^3uL (1.8-7.7) 7.1 x10^3uL (1.8-7.7) Lymphocytes # (Auto) 3.2 x10^3/uL (1.0-4.8) 3.2 x10^3/uL (1.0-4.8) Monocytes # (Auto) 0.9 x10^3/uL (0.0-1.1) 0.8 x10^3/uL (0.0-1.1) Eosinophils # (Auto) 0.5 x10^3/uL (0.0-0.7) 0.5 x10^3/uL (0.0-0.7) Basophils # (Auto) 0.0 x10^3/uL (0.0-0.2) 0.1 x10^3/uL (0.0-0.2) Prothrombin Time 9.3 SEC (9.4-11.4) Prothromb Time International Ratio 0.9 (0.9-1.1) Activated Partial Thromboplast Time 26 SEC (23-33) D-Dimer (Felisa) < 0.19 mg/L (0.00-0.50) Sodium Level 138 mmol/L (136-145) 137 mmol/L (136-145) Potassium Level 4.9 mmol/L (3.5-5.1) 4.2 mmol/L (3.5-5.1) Chloride Level 103 mmol/L (98-107) 103 mmol/L (98-107) Carbon Dioxide Level 28 mmol/L (21-32) 26 mmol/L (21-32) Anion Gap 7 (6-14) 8 (6-14) Blood Urea Nitrogen 13 mg/dL (8-26) 13 mg/dL (8-26) Creatinine 1.1 mg/dL (0.7-1.3) 1.1 mg/dL (0.7-1.3) Estimated GFR (Cockcroft-Gault) 74.1 74.1 Glucose Level 201 mg/dL (70-99) 146 mg/dL (70-99) Calcium Level 8.6 mg/dL (8.5-10.1) 8.3 mg/dL (8.5-10.1) Magnesium Level 2.2 mg/dL (1.8-2.4) Total Bilirubin 0.3 mg/dL (0.2-1.0) Direct Bilirubin 0.1 mg/dL (0.0-0.2) Aspartate Amino Transf (AST/SGOT) 51 U/L (15-37) Alanine Aminotransferase (ALT/SGPT) 89 U/L (16-63) Alkaline Phosphatase 93 U/L (46-116) Creatine Kinase 98 U/L (39-308) Troponin I Quantitative < 0.017 ng/mL (0-0.055) UV-Esv-I-Type Natriuretic Peptide 56 pg/mL (0-124) Total Protein 7.6 g/dL (6.4-8.2) Albumin 3.3 g/dL (3.4-5.0) Lipase 137 U/L (73-393) Urine Collection Type Unknown Urine Color Yellow Urine Clarity Clear Urine pH 6.5 Urine Specific [place] 1.025 Urine Protein Trace (NEG-TRACE) Urine Glucose (UA) 100 mg/dL (NEG) Urine Ketones (Stick) Neg mg/dL (NEG) Urine Blood Neg (NEG) Urine Nitrite Neg (NEG) Urine Bilirubin Neg (NEG) Urine Urobilinogen Dipstick 1 mg/dL (0.2 mg/dL) Urine Leukocyte Esterase Neg (NEG) Urine RBC Occ /HPF (0-2) Urine WBC Occ /HPF (0-4) Urine Squamous Epithelial Cells Few /LPF Urine Bacteria Few /HPF (0-FEW) Urine Opiates Screen Neg (NEG) Urine Methadone Screen Neg (NEG) Urine Barbiturates Neg (NEG) Urine Phencyclidine Screen Neg (NEG) Urine Amphetamine/Methamphetamine Pos (NEG) Urine Benzodiazepines Screen Neg (NEG) Urine Cocaine Screen Neg (NEG) Urine Cannabinoids Screen Neg (NEG) Urine Ethyl Alcohol Neg (NEG) Glucose (Fingerstick) 108 mg/dL (70-99) ECHOCARDIOGRAM Echocardiogram <Conclusion> Left ventricle systolic function is severely impaired. The Ejection Fraction is 20-25%. There is severe global hypokinesis of the left ventricle. Tissue Doppler imaging reveals severe left ventricular diastolic dysfunction. RV Systolic function is moderately reduced. Doppler and Color Flow revealed mild tricuspid regurgitation. The pulmonary artery systolic pressure is estimated at 57 mmHg. There is moderate pulmonary hypertension. DATE: 10/07/16 0939 <Conclusion> There is mild concentric left ventricular hypertrophy. The Ejection Fraction is 20-25%. Severe global hypokinesis. DATE: 05/21/17 1154 HEART CATH Heart Cath Cardiac cath ~[address] [facility] revealed NICM. ASSESSMENT/PLAN Assessment/Plan 1. Chest pain, atypical; resolved. Most probably GI in nature. Prior cardiac cath [address] [facility] revealed non ischemic CMP. 2. Hypertension; mildly elevated 3. NICM; LVEF 20-25% per echo 05/2017 4. Chronic combined diastolic/systolic heart failure; clinically compensated 5. H/o polysubstance abuse; patient reports being clean for 5 months. UDS positive or amphetamines this admission, but is on Vyvanse for ADHD 6. Tobaccoism; discussed/encouraged cessation 7. Morbid obesity; considering weight loss surgery 8. JENNIFFER; non-compliant with CPAP Recommendations Repeat trop x1 Resume home antiHTN therapy Echo to assess LV systolic function Supportive care CORTNEY REBOLLAR MD 03/30/19 1850: CARDIAC CONSULT ASSESSMENT/PLAN Assessment/Plan Patient seen and examined. Agree with above nurse practitioner note. 39-year-old male well known to us. He has done a great job with respect to refraining from methamphetamines. His ejection fraction has normalized. Supportive care for now. He will follow-up with us in the office in the future. He would be deemed low risk for any gastric bypass intervention for weight loss. SUSANNAH LEO APRN Mar 30, 2019 08:11 CORTNEY REBOLLAR MD Mar 30, 2019 18:50
[2019-03-30] MEDS: NITROGLYCERIN OINT 1 GM PACKET. TP SCH ×2 (08:30→13:22)
[2019-03-30] MEDS ORDERED: FUROSEMIDE 40 MG TABLET PO PRN (08:30)
[2019-03-30] MEDS: MORPHINE SULFATE 2 MG/ML DISP.SYRIN. IV PRN (08:58)
[2019-03-30] MEDS ORDERED: ENOXAPARIN ** NOTE DOSE ** SYRINGE SQ SCH (09:00)
[2019-03-30] MEDS ORDERED: LISINOPRIL 20 MG TABLET PO SCH (09:00)
[2019-03-30] MEDS ORDERED: CARVEDILOL 12.5 MG TABLET PO SCH (09:00)
[2019-03-30 09:41] VITALS: BP 138/92
[2019-03-30] MEDS ORDERED: FLU VAX QS 2019-20 (36MOS+)/PF 0.5 ML SYRINGE. VAX IM ONE (15:00)
--- NOTE | 2019-03-30 15:07 | CARD ---
MR#: [id number] Date of Study: 03/30/2019 Ordering Physician: SUSANNAH LEO, Referring Physician: SUSANNAH LEO, Tech: Iris Velasquez RDCS APPROVED REPORT EXAM: Two-dimensional and M-mode echocardiogram with Doppler and color Doppler. Other Information Quality : Technically LimitedHR: 84bpm Rhythm : NSRTechnically limited study due to body habitus. INDICATION NICM 2D DIMENSIONS RVDd3.1 (2.9-3.5cm)Left Atrium(2D)3.8 (1.6-4.0cm) IVSd1.6 (0.7-1.1cm)Aortic Root(2D)2.9 (2.0-3.7cm) LVDd4.6 (3.9-5.9cm)LVOT Diameter2.3 (1.8-2.4cm) PWd1.5 (0.7-1.1cm)LVDs3.3 (2.5-4.0cm) FS (%) 28.3 %SV54.2 ml LVEF(%)54.7 (>50%) M-Mode DIMENSIONS Left Atrium(MM)4.03 (2.5-4.0cm)Aortic Root2.89 (2.2-3.7cm) Aortic Valve AoV Peak Alex.144.8cm/sAoV VTI30.1cm AO Peak GR.8.4mmHgLVOT Peak Alex.129.7cm/s LVOT VTI 24.84cmAO Mean GR.5mmHg JOVANA (VMAX)3.27sk1GGQ (VTI)3.32cm2 Mitral Valve MV E Rhpikwqe75.3cm/sMV DECEL [id number] MV A Kiehyyxx58.1cm/sE/A Ratio1.0 Pulmonary Valve PV Peak Jwwzjjia402.3cm/sPV Peak Grad.6mmHg LEFT VENTRICLE The left ventricle is normal size. There is moderate concentric left ventricular hypertrophy. The lef t ventricular systolic function is normal. The Ejection Fraction is 55-60%. There is normal LV segmen sloane wall motion. The left ventricular diastolic function and filling is normal for age. RIGHT VENTRICLE The right ventricle is normal size. There is normal right ventricular wall thickness. The right ventr icular systolic function is normal. ATRIA The left atrium is borderline dilated. The right atrium size is normal. The interatrial septum is int act with no evidence for an atrial septal defect or patent foramen ovale as noted on 2-D or Doppler i maging. AORTIC VALVE The aortic valve is normal in structure and function. The aortic valve is trileaflet. Doppler and Col or Flow revealed no significant aortic regurgitation. There is no significant aortic valvular stenosi s. There is no aortic valvular vegetation. MITRAL VALVE The mitral valve is normal in structure and function. There is no evidence of mitral valve prolapse. There is no mitral valve stenosis. Doppler and Color Flow revealed no mitral valve regurgitation note d. TRICUSPID VALVE The tricuspid valve is normal in structure and function. Doppler and Color Flow revealed no tricuspid valve regurgitation noted. There is no tricuspid valve prolapse or vegetation. There is no tricuspid valve stenosis. PULMONIC VALVE The pulmonic valve is not well visualized. GREAT VESSELS The aortic root is normal in size. The ascending aorta is normal in size. The IVC is normal in size a nd collapses >50% with inspiration. PERICARDIAL EFFUSION There is no evidence of significant pericardial effusion. Critical Notification Critical Value: No <Conclusion> The left ventricular systolic function is normal. The Ejection Fraction is 55-60%. There is normal LV segmental wall motion. There is no evidence of significant pericardial effusion. Signed by : Carloz Tai, Electronically Approved : 03/30/2019 15:06:25
[2019-03-30 15:14] VITALS: BP 135/74
--- NOTE | 2019-03-30 15:33 | HP ---
ADMIT DATE: 03/29/2019 HISTORY OF PRESENT ILLNESS: The patient is a 39-year-old male patient who came to primary care physician for refill of his medication and there he started experiencing chest discomfort and burning sensation in his central chest. No associated shortness of breath, dizziness, diaphoresis or nausea and vomiting. Also complained of pain in his right kidney hurting and feeling like he was drunk, although he only had water at lunch. Due to his symptoms, primary care referred him to the Emergency Department for further evaluation and treatment. Has no further complaints of pain throughout his stay in the hospital. He was investigated in the Emergency Room. His white cell count was slightly elevated at 14,500. His first set of cardiac enzymes showed troponin to be less than 0.017. He was admitted to do 2 more sets of cardiac enzymes and also to consult the copying machine repairer. Blood sugar was also high when he arrived, although he is not known to have diabetes. PAST MEDICAL HISTORY: Significant for hypertension, has also congestive heart failure due to nonischemic cardiomyopathy with ejection fraction of 20-25%, severe global hypokinesis, mild concentric left ventricular hypertrophy. Other medical problems including morbid obesity, obstructive sleep apnea, substance abuse, and tobacco abuse. PAST SURGICAL HISTORY: Significant for left heart catheterization. ALLERGIES: He is allergic to SULFAMETHOXAZOLE AND TRIMETHOPRIM. FAMILY HISTORY: He has no brothers or sisters. Father still alive at age of 66 and is known to have diabetes, back pain, hypertension, congestive heart failure. His mother is alive and is known to have hypertension and diabetes. SOCIAL HISTORY: . He lives with his girlfriend. He has 3 sons and 3 girls. He smokes half a pack a day. He does not drink alcohol and quit using amphetamine in August 2017. He is currently applying for disability. MEDICATIONS: He is currently on following medications: He is on loratadine 10 mg once a day, cyclobenzaprine 10 mg 3 times a day, carvedilol 25 mg twice a day, lisinopril 40 mg once a day, clonazepam 1 mg twice a day and Vyvanse 30 mg daily, furosemide 40 mg as needed. REVIEW OF SYSTEMS: The patient denied any blurring of vision, cataract, glaucoma or macular degeneration. Denied any earache, tinnitus or sensorineural deafness. Denied any nosebleeds, stuffy nose or postnasal drip. Denied any sore throat, sore tongue, toothache, hoarseness of voice or difficulty swallowing. He denied any nausea, vomiting, diarrhea or constipation. Denied any hematemesis, melena or hematochezia. Denied any dysuria, frequency or hematuria. He did complain of chest pain. Denied any chills, rigors or fever. PHYSICAL EXAMINATION: GENERAL: On arrival to the Emergency Room, he looked well and was clearly in no apparent respiratory distress. No pallor, jaundice, cyanosis or thyromegaly. No jugular venous distention. No limb edema. VITAL SIGNS: His heart rate was 108, blood pressure was 144/89, temperature was 98.1, respiratory rate was 18 and oxygen saturation was 96% on room air. HEAD, EYES, EARS, NOSE AND THROAT: Showed normocephalic, atraumatic. NECK: Supple. HEART: Showed normal first and second heart sounds. No gallop or murmur. CHEST: Clear to auscultation. No crepitation or rhonchi. ABDOMEN: Distended, soft, nontender. NEUROLOGIC: He was awake, alert, responding appropriately. All cranial nerves intact. EXTREMITIES: He moves extremities without difficulty, ambulates without assistance or assistive devices. LABORATORY DATA: On admission showed a white cell count of 14,500, hemoglobin 14.7, hematocrit 44, MCV 91, and platelet count 296,000 with a manual differential showed 68% polymorphs, 2% lymphocytes. His chemistry showed a serum sodium 138, potassium 4.9, chloride 103, bicarbonate 28, anion gap of 7, BUN 13, creatinine 1.1, estimated GFR was 74 mL per minute, his glucose was 201, calcium was 8.6, magnesium 2.2. Total bilirubin, AST, ALT, alkaline phosphatase were normal. Total protein was 7.6, albumin 3.3. Serum lipase was 137. His prothrombin time was 9.3, INR 0.9, aPTT was 26 and D-dimer was 0.19. Urinalysis showed the urine was yellow, clear with a pH of 6.5, specific gravity 1.025. There was a trace of protein, positive for glucose, negative for ketones, blood, nitrite and total bilirubin and the urine was negative for leukocyte esterase. There are no rbc's, no wbc's, and very few bacteria. Toxic screen was essentially negative except for amphetamine, methamphetamine as he is also already on Vyvanse. He has a chest x-ray, which basically showed the cardiomediastinal silhouette is normal. Pulmonary vasculature is normal. The lungs are clear, no pleural effusion or pneumothorax seen. There is no acute bony abnormality. ASSESSMENT AND PLAN: The patient will do 2 more sets of cardiac enzyme. We will consult the copying machine repairer and also arrange for an echocardiogram and decide on further management accordingly. ANTONIO YOUGN MD DR: ORESTES/jose de jesus JOB#: [id number] / [id number]
[2019-03-30 16:14] LABS: THYROID STIM HORMONE (TSH) 0.869 uIU/mL (0.358-3.740)
[2019-03-30] MEDS ORDERED: clonazePAM 1 MG TABLET PO PRN (16:15)
[2019-03-30] MEDS ORDERED: CYCLOBENZAPRINE 10 MG TABLET. PO PRN (16:15)
--- NOTE | 2019-03-30 22:54 | DS ---
DATE OF DISCHARGE: 03/30/2019 HOSPITAL COURSE: The patient is a 39-year-old male patient who was admitted with chest discomfort that is in his central chest. No associated shortness of breath, dizziness, diaphoresis, nausea or vomiting. Complained also of pain in his right kidney hurting and feeling like he was drunk, although he only had water at lunch. Due to his symptoms, primary care physician referred him to the Emergency Department for further evaluation and treatment. Has had 3 sets of cardiac enzymes that ruled out myocardial infarction. He was seen by the Cardiology team. An echocardiogram was done, which showed that he has improvement in ejection fraction. His left ventricular systolic function is normal, ejection fraction 55-60%. There is normal left ventricular segmental wall motion. There is no evidence of significant pericardial effusion as he has ruled out myocardial infarction. There is actually dramatic improvement on his left ventricular ejection fraction. A decision was made to discharge him home to follow with his primary care physician. He was advised to resume all his antihypertensive medication and counseled for polysubstance abuse. PHYSICAL EXAMINATION: GENERAL: When I saw him this afternoon, he looked well and was clearly in no apparent respiratory distress. No pallor, jaundice, cyanosis, or thyromegaly. No jugular venous distention. No limb edema. VITAL SIGNS: Her heart rate was 89, blood pressure was 135/74, temperature was 97.7, respiratory rate 20, and oxygen saturation was 94%. HEAD, EYES, EARS, NOSE AND THROAT: Showed normocephalic, atraumatic. NECK: Supple. HEART: Showed normal first and second heart sounds. No gallop or murmur. CHEST: Clear to auscultation. No crepitation or rhonchi. ABDOMEN: Distended, soft, nontender. NEUROLOGIC: He was awake, alert, responding appropriately. All cranial nerves intact. EXTREMITIES: She moves extremities without difficulty. LABORATORY DATA: Showed his serum sodium 137, potassium 4.2, chloride 103, bicarbonate 26, anion gap of 8, BUN 13, creatinine 1.1, estimated GFR was 74 mL per minute, his glucose 146, calcium was 8.3 and white cell count was 11,700; hemoglobin 13, hematocrit 42, MCV 92, and platelet count 250,000. His urinalysis was unremarkable. Chest x-ray showed that the cardiomediastinal silhouette is normal. Pulmonary vasculature is normal. The lungs are clear, no pleural effusion or pneumothorax. There is no acute bony abnormality. DISCHARGE MEDICATIONS: The patient was discharged home to continue on his following medications: Carvedilol 25 mg twice a day, lisinopril 40 mg once a day, furosemide 40 mg once a day, albuterol and Atrovent q.i.d., aspirin 81 mg once a day. He was also advised to follow with his primary care physician as his blood sugar is definitely high and indicating that he probably has type 2 diabetes. ANTONIO YOUNG MD DR: ORESTES/jose de jesus JOB#: [id number] / [id number]
[2019-03-31] MEDS ORDERED: FLU VAX QS 2019-20 (36MOS+)/PF 0.5 ML SYRINGE. VAX IM ONE (08:00)
[2019-03-31] MEDS ORDERED: CETIRIZINE HCL 10 MG TABLET PO SCH (09:00)
[2019-03-31] MEDS ORDERED: LISDEXAMFETAMINE DIMESYLATE 30 MG PO SCH (09:00)
== END 2019-03-30 16:31 | disposition home or self-care (01) ==
LOC: ER 18:38 → INTOOBSV 22:00 → 1 SOUTH 22:00
PROVIDERS: ADMIT Internal Medicine; ATTEND Internal Medicine
DX: R07.89 Other chest pain (principal); I50.9 Heart failure, unspecified; K21.9 Gastro-esophageal reflux disease without esophagitis; E66.01 Morbid (severe) obesity due to excess calories; G47.30 Sleep apnea, unspecified; F51.9 Sleep disorder not due to a substance or known physiological condition, unspecified; D72.829 Elevated white blood cell count, unspecified; I11.0 Hypertensive heart disease with heart failure; G47.33 Obstructive sleep apnea (adult) (pediatric); R79.89 Other specified abnormal findings of blood chemistry; F17.210 Nicotine dependence, cigarettes, uncomplicated; F19.10 Other psychoactive substance abuse, uncomplicated; E11.9 Type 2 diabetes mellitus without complications; R42 Dizziness and giddiness; R11.2 Nausea with vomiting, unspecified; I42.9 Cardiomyopathy, unspecified; I51.7 Cardiomegaly; Z82.49 Family history of ischemic heart disease and other diseases of the circulatory system; Z83.3 Family history of diabetes mellitus; Z91.19 Patient's noncompliance with other medical treatment and regimen; I25.10 Atherosclerotic heart disease of native coronary artery without angina pectoris; F12.90 Cannabis use, unspecified, uncomplicated; F15.10 Other stimulant abuse, uncomplicated
CPT/HCPCS: 36415; 71046; 80048; 80061; 80076; 80307; 81001; 82550; 82947; 83690; 83735; 83880; 84443; 84484; 85025; 85379; 85610; 85730; 86705; 86709; 86803; 87340; 93005; 93306; 94640; 96361; 96374; 96376; 99284; 99406; G0238; G0378; J2270; J7120; J7620; 96360; G0379; 99285-25

== ENCOUNTER 2019-06-14 07:43 | Emergency (ER) | payer OTHER ==
[~2019-06-14] VITALS: Ht 182.9 cm; Wt 149.7 kg
[~2019-06-14 07:43] MED LIST changes: +CLON1TAB11 PO; +LISD30CA5 PO; +LORA10TA3 PO
[2019-06-14] MEDS ORDERED: ONDANSETRON ODT 4 MG TAB.RAPDIS PO ONE (08:30)
[2019-06-14] MEDS ORDERED: IBUPROFEN 600 MG TABLET. PO ONE (08:30)
--- NOTE | 2019-06-14 08:31 | PHYS DOC ---
Past History Past Medical History: Anxiety, CAD, CHF, Diabetes, Heart Disease, Hypertension, Renal Disease, Other Additional Past Medical Histor: ADHD,ejection fraction less that 20% Past Surgical History: No Surgical History Smoking: Cigarettes Alcohol Use: Rarely Drug Use: Methamphetamine Adult General HPI HPI Patient is a 39-year-old male who presents to the emergency department with multiple medical complaints. His main complaint is pain at his left Achilles heel, which has been present for the past 4-5 days, although he denies any injury. He also reports some bilateral otalgia and some nasal congestion for the past 2 days as well as a nonproductive cough. He went to urgent care, and was prescribed Tessalon Perles. He has not had any fever. He denies any abdominal pain although he admits to some generalized queasiness. He has not had any vomiting, diarrhea, and denies any chest pain or shortness of breath. He is a smoker. He is in the process of arranging for bariatric surgery. There are no alleviating or exacerbating factors to the patient's symptoms except that plantar flexion improves the pain in his heel, and dorsiflexion, and stretching of the Achilles tendon, worsens his pain. Patient has had normal renal function as recently as March of this year. Review of Systems Review of Systems Constitutional: Denies fever or chills [] Eyes: Denies change in visual acuity, redness, or eye pain [] HENT: Denies current nasal congestion or sore throat. Reports bilateral otalgia. [] Respiratory: Denies current cough or shortness of breath [] Cardiovascular: The patient denies any shortness of breath, chest pain, palpitations, or orthopnea [] GI: Denies abdominal pain, nausea, vomiting, bloody stools or diarrhea [] : Denies dysuria or hematuria [] Musculoskeletal: Denies back pain or joint pain. Reports pain in his left heel. [] Integument: Denies rash or skin lesions [] Neurologic: Denies headache, focal weakness or sensory changes [] Endocrine: Denies polyuria or polydipsia [] All other systems were reviewed and found to be within normal limits, except as documented in this note. Current Medications Current Medications Current Medications Medications (Trade) Dose Ordered Sig/Rubina Start Time Stop Time Status Last Admin Dose Admin Ibuprofen (Motrin) 600 mg 1X ONCE 06/14/19 08:30 06/14/19 08:31 UNV Allergies Allergies Allergies Coded Allergies Type Severity Reaction Last Updated Verified sulfamethoxazole Allergy Intermediate 12/02/17 Yes trimethoprim Allergy Intermediate 12/02/17 Yes Physical Exam Physical Exam PHYSICAL EXAM: CONSTITUTIONAL: Well developed, well nourished HEAD: normocephalic, atraumatic EENT: PERRL, EOMI. Conjunctivae normal color, sclerae non-icteric; moist mucous membranes. Tympanic membranes are normal bilaterally. There is no mastoid tenderness. NECK: Supple, non-tender; no meningismus. LUNGS: Lungs CTA, breathing even and unlabored. Normal air movement. HEART: Regular rate and rhythm, no murmur CHEST: No deformity; non-tender ABDOMEN: The abdomen is soft, and non-tender, no masses or bruits. EXTREM: Normal ROM; no deformity, no calf tenderness. Normal pulses palpable in all extremities. There is no pedal edema. There is tenderness to palpation over the posterior aspect of the left heel, over the Achilles tendon. The tendon otherwise feels normal, there is normal plantar and dorsiflexion present in the foot, although dorsiflexion is painful. The remainder of the foot, including bony structures and soft tissues, is nontender. Dorsalis pedis pulse is present. Oneill's test is normal. The remainder the extremities are unremarkable. SKIN: No rash; no diaphoresis NEURO: Alert; normal speech and cognition; CN's grossly intact; strength grossly intact without focal deficit. BACK: No CVA TTP. EKG EKG [] Radiology/Procedures Radiology/Procedures PROCEDURE: FOOT LEFT 3V Three-view left foot study Clinical indications: Achilles pain. FINDINGS: No acute fracture or dislocation or lytic process is evident. 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 Tiny plantar spur of the calcaneus is seen. No posterior spur of the calcaneus is evident. The Achilles tendon shadow appears intact radiographically. IMPRESSION: No acute osseous abnormality.[] Course & Med Decision Making Course & Med Decision Making Pertinent Labs and Imaging studies reviewed. (See chart for details) []Patient remains stable. I discussed test results, the need for close follow- up, and return precautions. Dragon Disclaimer Dragon Disclaimer This electronic medical record was generated, in whole or in part, using a voice recognition dictation system. Departure Departure: Impression: Primary Impression: Achilles tendinitis Additional Impressions: Nausea Otalgia Disposition: 01 HOME, SELF-CARE Condition: STABLE Referrals: SAUMYA FERNANDES MD (PCP) Patient Instructions: Achilles Tendinitis, Nausea, Adult, Otalgia Additional Instructions: Ibuprofen 400 mg every 6 hours may help improve your symptoms. Applying a heating pad to the affected area may help improve your symptoms. Problem Qualifiers NASIR MONTGOMERY MD Jun 14, 2019 08:31
--- NOTE | 2019-06-14 08:45 | RAD ---
Three-view left foot study Clinical indications: Achilles pain. FINDINGS: No acute fracture or dislocation or lytic process is evident. 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 Tiny plantar spur of the calcaneus is seen. No posterior spur of the calcaneus is evident. The Achilles tendon shadow appears intact radiographically. IMPRESSION: No acute osseous abnormality. Electronically signed by: Wei Paz MD (06/14/2019 8:42 AM) [facility]
[2019-06-14 10:21] VITALS: BP 146/94
== END 2019-06-14 09:12 | disposition home or self-care (01) ==
LOC: ER 07:43
DX: M76.62 Achilles tendinitis, left leg (principal); H92.03 Otalgia, bilateral; R11.0 Nausea; F41.9 Anxiety disorder, unspecified; I25.10 Atherosclerotic heart disease of native coronary artery without angina pectoris; I11.0 Hypertensive heart disease with heart failure; I50.9 Heart failure, unspecified; F17.210 Nicotine dependence, cigarettes, uncomplicated; Z88.1 Allergy status to other antibiotic agents; Z88.2 Allergy status to sulfonamides
CPT/HCPCS: 73630; 99284; Q0162

== ENCOUNTER → 2019-06-20 | Outpatient (CLI) | payer OTHER ==
[2019-06-14 10:21] VITALS: BP 146/94
[~2019-06-20] MED LIST changes: +IOHEXOL 300 MG/ML 75 ML VIAL. IV ONE
--- NOTE | 2019-06-21 10:06 | RAD ---
AP and Lateral Views of the Chest 06/20/2019 5:47 PM Indication: Cough Comparison: 2 views of the chest March 29, 2019 Findings: There is no focal consolidation or infiltrate identified. The cardiomediastinal silhouette is within normal limits. There is no evidence of pneumothorax or pleural effusion. No acute osseous abnormalities are identified. Impression: No evidence of acute cardiopulmonary process. Electronically signed by: Edgard Moura MD (06/21/2019 10:03 AM) [id number]
== END | disposition home or self-care (01) ==
LOC: PMG 17:33
PROVIDERS: ATTEND Registered Nurse
DX: R05 Cough (principal)
CPT/HCPCS: 71046; Q9967

== ENCOUNTER 2021-07-31 17:49 | Inpatient (IN) | payer OTHER ==
[~2021-07-31] VITALS: Ht 182.9 cm; Wt 162.0 kg
[~2021-07-31 17:49] MED LIST changes: -BENA20TA4 PO; +BENA20TA84 PO; -CYCL-331 PO; +CYCL10TA19 PO; -IOHEXOL 300 MG/ML 75 ML VIAL. IV ONE; -LISI40TA PO; +LISI40TA6 PO
[2021-07-31] MEDS ORDERED: NITROGLYCERIN PREMIX 250 ML IV ONE (18:15)
[2021-07-31] MEDS ORDERED: NITROGLYCERIN SUBLINGUAL 0.4 MG BOTTLE OF 25. SL ONE (18:26)
--- NOTE | 2021-07-31 18:33 | PHYS DOC ---
Past History Past Medical History: Anxiety, CAD, CHF, Diabetes, Heart Disease, Hypertension, Renal Disease, Other Additional Past Medical Histor: ADHD (RAMY LOVE APRN) Past Surgical History: Other Additional Past Surgical Histo: CARDIAC CATH (RAMY LOVE APRN) Smoking: Cigarettes Alcohol Use: Rarely Drug Use: Methamphetamine (RAMY LOVE APRN) General Adult EDM: Chief Complaint: COUGH HPI: HPI: Patient is a 41-year-old male that presents today with shortness of air. Patient states he has had shortness of breath over the last 4 to 6 weeks he states that the last couple days has been really bad, he states that he was seen by his primary care physician about 2 weeks ago for the shortness of air and was placed on an antibiotic due to his venous dermatitis of his legs, he states that his shortness of air is just continually gotten worse. Patient does state that he took a home COVID test today and it was negative. Patient does state that he feels like he is puffier than normal and feels like his stretch arroyo are more filled out in his abdomen area, and his legs do hurt and they do feel tingly at times. (RAMY LOVE APRN) Review of Systems: Review of Systems: Constitutional: Denies fever or chills Eyes: Denies change in visual acuity HENT: Denies nasal congestion or sore throat Respiratory: Increased shortness of air Cardiovascular: Denies chest pain or edema GI: Abdominal swelling : Denies dysuria Musculoskeletal: Peripheral edema Integument: Denies rash Neurologic: Denies headache, focal weakness or sensory changes Endocrine: Denies polyuria or polydipsia Lymphatic: Denies swollen glands Psychiatric: Denies depression or anxiety (RAMY LOVE APRN) Current Medications: Current Meds: Current Medications Medications (Trade) Dose Ordered Sig/Rubina Start Time Stop Time Status Last Admin Dose Admin Nitroglycerin (Nitrostat) 0.4 mg STK-MED ONCE 07/31/21 18:26 07/31/21 18:27 DC Nitroglycerin/ Dextrose 250 ml @ 0 mls/hr 1X ONCE 07/31/21 18:15 07/31/21 18:16 UNV (RAMY LOVE BREASTFEEDING PEER COUNSELOR) Allergies: Allergies: Allergies Coded Allergies Type Severity Reaction Last Updated Verified sulfamethoxazole Allergy Intermediate 12/02/17 Yes trimethoprim Allergy Intermediate 12/02/17 Yes (RAMY LOVE APRN) Physical Exam: PE: Constitutional: Moderate distressed obese male HENT: Normocephalic, atraumatic, bilateral external ears normal, oropharynx moist, no oral exudates, nose normal. [] Eyes: PERRLA, EOMI, conjunctiva normal, no discharge. [] Neck: Normal range of motion, no tenderness, supple, no stridor. [] Cardiovascular:Heart rate sinus tachycardia on the monitor peripheral pulses are 2+ Lungs & Thorax: Bilateral breath sounds diminished in the bases Abdomen: Obese distended abdomen with hypoactive bowel sounds no pulsatile masses noted, no tenderness [] Skin: Venous dermatitis noted on the lower extremities both right and left have multiple open areas noted no active bleeding at this time no signs and symptoms of infection at this time Back: No tenderness, no CVA tenderness. [] Extremities: No tenderness, no cyanosis, no clubbing, ROM intact, 2+ edema noted on lower extremities, 1+ pedal pulses noted Neurologic: Alert and oriented X 3, normal motor function, normal sensory function, no focal deficits noted. [] Psychologic: Affect normal, judgement normal, mood normal. [] (RAMY LOVE APRN) Current Patient Data: Labs: Laboratory Tests Test 07/31/21 18:40 07/31/21 20:10 07/31/21 21:33 White Blood Count 12.7 x10^3/uL Red Blood Count 5.46 x10^6/uL Hemoglobin 16.1 g/dL Hematocrit 48.9 % Mean Corpuscular Volume 90 fL Mean Corpuscular Hemoglobin 30 pg Mean Corpuscular Hemoglobin Concent 33 g/dL Red Cell Distribution Width 15.3 % Platelet Count 248 x10^3/uL Neutrophils (%) (Auto) 59 % Lymphocytes (%) (Auto) 30 % Monocytes (%) (Auto) 7 % Eosinophils (%) (Auto) 4 % Basophils (%) (Auto) 0 % Neutrophils # (Auto) 7.4 x10^3uL Lymphocytes # (Auto) 3.8 x10^3/uL Monocytes # (Auto) 0.9 x10^3/uL Eosinophils # (Auto) 0.5 x10^3/uL Basophils # (Auto) 0.0 x10^3/uL Influenza Type A (Rapid) Negative Influenza Type B (Rapid) Negative SARS-CoV-2 Antigen (Rapid) Negative Sodium Level 136 mmol/L Potassium Level 3.7 mmol/L Chloride Level 104 mmol/L Carbon Dioxide Level 23 mmol/L Anion Gap 9 Blood Urea Nitrogen 15 mg/dL Creatinine 1.0 mg/dL Estimated GFR (Cockcroft-Gault) 81.9 BUN/Creatinine Ratio 15 Glucose Level 130 mg/dL Calcium Level 7.9 mg/dL Total Bilirubin 1.0 mg/dL Aspartate Amino Transf (AST/SGOT) 43 U/L Alanine Aminotransferase (ALT/SGPT) 43 U/L Alkaline Phosphatase 80 U/L Troponin I High Sensitivity 146 ng/L [id number] Natriuretic Peptide 9891 pg/mL Total Protein 7.1 g/dL Albumin 2.5 g/dL Albumin/Globulin Ratio 0.5 Urine Collection Type Unknown Urine Color Yellow Urine Clarity Clear Urine pH 5.5 Urine Specific [place] >=1.030 Urine Protein >100 mg/dl Urine Glucose (UA) Neg mg/dL Urine Ketones (Stick) Neg mg/dL Urine Blood Neg Urine Nitrite Neg Urine Bilirubin Small Urine Urobilinogen Dipstick >=8.0 mg/dL Urine Leukocyte Esterase Neg Urine RBC 0 /HPF Urine WBC Occ /HPF Urine Squamous Epithelial Cells Few /LPF Urine Bacteria 0 /HPF Current Medications Medications (Trade) Dose Ordered Sig/Rubina Route PRN Reason Start Time Stop Time Status Last Admin Dose Admin Nitroglycerin/ Dextrose 250 ml @ 1.5 mls/hr 1X ONCE IV 07/31/21 18:15 08/07/21 16:54 07/31/21 18:55 Nitroglycerin (Nitrostat) 0.4 mg STK-MED ONCE SL 07/31/21 18:26 07/31/21 18:27 DC Diphenhydramine HCl (Benadryl) 50 mg STK-MED ONCE .ROUTE 07/31/21 19:24 07/31/21 19:25 DC Acetaminophen (Tylenol) 500 mg STK-MED ONCE PO 07/31/21 19:24 07/31/21 19:25 DC Fentanyl Citrate (Fentanyl 2ml Vial) 100 mcg STK-MED ONCE .ROUTE 07/31/21 19:24 07/31/21 19:25 DC Acetaminophen (Tylenol) 1,000 mg 1X ONCE PO 07/31/21 19:30 07/31/21 19:31 DC 07/31/21 19:27 Fentanyl Citrate (Fentanyl 2ml Vial) 50 mcg 1X ONCE IVP 07/31/21 19:30 07/31/21 19:31 DC 07/31/21 19:28 Diphenhydramine HCl (Benadryl) 25 mg 1X ONCE IVP 07/31/21 19:30 07/31/21 19:31 DC 07/31/21 19:28 Aspirin (Aspirin Chewable) 324 mg 1X ONCE PO 07/31/21 21:30 07/31/21 21:31 DC 07/31/21 21:22 Nitroglycerin (Nitrostat) 0.4 mg PRN Q5MIN PRN SL CHEST PAIN 07/31/21 21:30 07/31/21 21:58 Vital Signs: Vital Signs Date Time Temp Pulse Resp B/P (MAP) Pulse Ox O2 Delivery O2 Flow Rate FiO2 07/31/21 21:58 100 178/110 07/31/21 21:55 101 14 178/110 (132) 99 Nasal Cannula 2.0 07/31/21 21:52 94 173/105 07/31/21 21:50 94 16 173/105 (127) 99 Nasal Cannula 2.0 07/31/21 21:46 93 178/105 07/31/21 21:45 93 16 178/105 (129) 99 Nasal Cannula 2.0 07/31/21 21:39 100 173/116 07/31/21 21:35 103 22 174/112 (132) 98 Nasal Cannula 2.0 07/31/21 21:25 94 18 180/111 (134) 97 Nasal Cannula 2.0 07/31/21 21:20 90 16 180/108 (132) 98 Nasal Cannula 2.0 07/31/21 21:10 102 18 186/113 (137) 94 Nasal Cannula 2.0 07/31/21 21:05 92 16 178/111 (133) 96 Nasal Cannula 2.0 07/31/21 20:55 97 14 191/118 (142) 97 Nasal Cannula 2.0 07/31/21 20:50 75 16 202/129 (153) 98 Nasal Cannula 2.0 07/31/21 20:45 99 16 192/120 (144) 97 Nasal Cannula 2.0 07/31/21 20:40 105 20 179/109 (132) 96 Nasal Cannula 2.0 07/31/21 20:35 95 18 183/106 (131) 98 Nasal Cannula 2.0 07/31/21 20:30 97 16 182/104 (130) 97 Nasal Cannula 2.0 07/31/21 20:25 92 16 187/109 (135) 97 Nasal Cannula 2.0 07/31/21 20:20 98 18 176/111 (132) 98 Nasal Cannula 2.0 07/31/21 20:15 96 16 169/124 (139) 98 Nasal Cannula 2.0 07/31/21 20:05 95 18 182/103 (129) 98 Nasal Cannula 2.0 07/31/21 19:55 101 16 185/106 (132) 98 Nasal Cannula 2.0 07/31/21 19:55 18 Nasal Cannula 2.0 07/31/21 19:43 99 17 187/117 (140) 98 Nasal Cannula 2.0 07/31/21 19:34 103 16 188/117 (140) 98 Nasal Cannula 2.0 07/31/21 19:28 15 98 Nasal Cannula 2.0 07/31/21 19:20 106 19 189/120 (143) 98 Nasal Cannula 2.0 07/31/21 19:17 109 21 193/118 (143) 98 Nasal Cannula 2.0 07/31/21 19:13 109 22 200/121 (147) 99 Nasal Cannula 2.0 07/31/21 19:10 110 24 197/131 (153) 99 Nasal Cannula 2.0 07/31/21 19:05 111 23 199/122 (147) 98 Nasal Cannula 2.0 07/31/21 18:56 116 28 190/137 (154) 98 Nasal Cannula 2.0 07/31/21 18:02 97.8 114 16 212/150 (170) 98 Room Air Vital Signs Date Time Temp Pulse Resp B/P (MAP) Pulse Ox O2 Delivery O2 Flow Rate FiO2 07/31/21 20:05 95 18 182/103 (129) 98 Nasal Cannula 2.0 07/31/21 19:55 101 16 185/106 (132) 98 Nasal Cannula 2.0 07/31/21 19:43 99 17 187/117 (140) 98 Nasal Cannula 2.0 07/31/21 19:34 103 16 188/117 (140) 98 Nasal Cannula 2.0 07/31/21 19:28 15 98 Nasal Cannula 2.0 07/31/21 19:20 106 19 189/120 (143) 98 Nasal Cannula 2.0 07/31/21 19:17 109 21 193/118 (143) 98 Nasal Cannula 2.0 07/31/21 19:13 109 22 200/121 (147) 99 Nasal Cannula 2.0 07/31/21 19:10 110 24 197/131 (153) 99 Nasal Cannula 2.0 07/31/21 19:05 111 23 199/122 (147) 98 Nasal Cannula 2.0 07/31/21 18:56 116 28 190/137 (154) 98 Nasal Cannula 2.0 07/31/21 18:02 97.8 114 16 212/150 (170) 98 Room Air Vital Signs Date Time Temp Pulse Resp B/P (MAP) Pulse Ox O2 Delivery O2 Flow Rate FiO2 07/31/21 18:02 97.8 114 16 212/150 (170) 98 Room Air (RAMY LOVE BREASTFEEDING PEER COUNSELOR) EKG: EKG: EKG done at [address] Riojas no STEMI currently sinus tachycardia with no ectopy rate of 109 with a WV interval of 139 ms with a QTC of 489 ms [] (RAMY LOVE BREASTFEEDING PEER COUNSELOR) Radiology/Procedures: Radiology/Procedures: REASON: SOA PROCEDURE: CHEST AP ONLY EXAM: XR CHEST 1V 07/31/2021 6:09 PM CLINICAL INDICATION: Shortness of air COMPARISON: Chest radiograph 06/20/2019 TECHNIQUE: AP view of the chest FINDINGS: The heart is mildly enlarged, new from 2019. Lungs are adequately expanded. There is no consolidation, pleural effusion, or pneumothorax. No acute osseous abnormality. IMPRESSION: New mild cardiomegaly. Electronically signed by: Lilian Barron MD (07/31/2021 6:38 PM) [id number] [] (RAMY LOVE APRN) Heart Score: C/O Chest Pain: Yes HEART Score for Chest Pain: HEART Score for Chest Pain Response (Comments) Value History Highly Suspicious 2 ECG Normal 0 Age < 45 0 Risk Factors >3 Risk Factors or Hx CAD 2 Troponin >3 x Normal Limit 2 Total 6 Risk Factors: Risk Factors: DM, Current or recent (<one month) smoker, HTN, HLP, family history of CAD, obesity. Risk Scores: Score 0 - 3: 2.5% MACE over next 6 weeks - Discharge Home Score 4 - 6: 20.3% MACE over next 6 weeks - Admit for Clinical Observation Score 7 - 10: 72.7% MACE over next 6 weeks - Early Invasive Strategies (RAMY LOVE APRN) Course & Med Decision Making: Course & Med Decision Making Pertinent Labs and Imaging studies reviewed. (See chart for details) [address] Riojas here in the emergency department patient was placed on a nitroglycerin drip to help decrease blood pressure, after reviewing chest x-ray it was found that he had significant fluid in his lungs that needed to be treated immediately. Patient continues to have increased work of breathing, blood pressure currently is 198/130s, with a heart rate of 118 2145 patient shortness of air better patient is sitting up eating M&Ms and drinking Gatorade in the room. Nitro drip is off current blood pressure is 173/89, patient was able to void and that was sent to lab for urinalysis and UDS. Did speak to Dr. Mendez who is agreeable to admitting the patient for hypertension management. Consultation with cardiology to be done in the a.m. for further evaluation of congestive heart failure. Patient was given aspirin while in this department as well. (RAMY LOVE APRN) Course & Med Decision Making Agree with BLOOD BANK ASSISTANT's work-up and disposition per note (TERRY RIOJAS MD) Dragon Disclaimer: Dragon Disclaimer: This electronic medical record was generated, in whole or in part, using a voice recognition dictation system. (RAMY LOVE APRN) Departure Departure: Impression: Primary Impression: Hypertension Qualified Codes: I10 - Essential (primary) hypertension Disposition: ADMITTED INPATIENT Admitting Physician: Sharan Mendez (RAMY LOVE APRN) Condition: GUARDED Referrals: SAUMYA FERNANDES MD (PCP) RAMY LOVE APRN Jul 31, 2021 18:33 TERRY RIOJAS MD Aug 01, 2021 02:03
--- NOTE | 2021-07-31 18:41 | RAD ---
EXAM: XR CHEST 1V 07/31/2021 6:09 PM CLINICAL INDICATION: Shortness of air COMPARISON: Chest radiograph 06/20/2019 TECHNIQUE: AP view of the chest FINDINGS: The heart is mildly enlarged, new from 2019. Lungs are adequately expanded. There is no co nsolidation, pleural effusion, or pneumothorax. No acute osseous abnormality. IMPRESSION: New mild cardiomegaly. Electronically signed by: Lilian Barron MD (07/31/2021 6:38 PM) [id number]
[2021-07-31 19:03] LABS: BASO % 0 % (0-3); EOS # 0.5 x10^3/uL (0.0-0.7); EOS % 4 % (0-3); HEMATOCRIT 48.9 % (39.0-53.0); HEMOGLOBIN 16.1 g/dL (13.0-17.5); LYMPH # 3.8 x10^3/uL (1.0-4.8); LYMPH % 30 % (24-48); MEAN CORPUSCULAR HEMOGLOBIN 30 pg (25-35); MEAN CORPUSCULAR HGB CONC 33 g/dL (31-37); MEAN CORPUSCULAR VOLUME 90 fL (79-100); MONO # 0.9 x10^3/uL (0.0-1.1); MONO % 7 % (0-9); NEUT # 7.4 x10^3uL (1.8-7.7); NEUT % 59 % (31-73); PLATELET COUNT 248 x10^3/uL (140-400); RED BLOOD COUNT 5.46 x10^6/uL (4.30-5.70); RED CELL DISTRIBUTION WIDTH 15.3 % (11.5-14.5); WHITE BLOOD COUNT 12.7 x10^3/uL (4.0-11.0)
[2021-07-31 19:12] LABS: INFLUENZA A PATIENT NEGATIVE (NEGATIVE); INFLUENZA B PATIENT NEGATIVE (NEGATIVE)
[2021-07-31] MEDS ORDERED: diphenhydrAMINE 50 MG/ML VIAL ONE (19:24)
[2021-07-31] MEDS ORDERED: ACETAMINOPHEN 500 MG TABLET PO ONE ×3 (19:24→23:30)
[2021-07-31] MEDS ORDERED: diphenhydrAMINE 50 MG/ML VIAL IVP ONE (19:30)
--- NOTE | 2021-07-31 20:17 | EKG ---
[address] [address] Test Date: 2021-07-31 Test Time: 19:16:17 Pat Name: PORTER CASAS Department: Room: Gender: M Machine Packager: MUKUL : 1980 Requested By: RAMY LOVE Order Number: [id number] Reading MD: Jorgito Winn MD Measurements Intervals [place] Rate: 109 P: 47 VT: 138 QRS: -56 QRSD: 102 T: 61 QT: 362 QTc: 489 Interpretive Statements SINUS TACHYCARDIA LAD POOR R WAVE PROGRESSION Electronically Signed On 07-31-2021 20:38:27 STORE STOCK ASSOCIATE by Jorgito Winn MD
[2021-07-31 20:43] LABS: CALCIUM 7.9 mg/dL (8.5-10.1); GFR 81.9; POTASSIUM 3.7 mmol/L (3.5-5.1)
[2021-07-31 20:57] LABS: ALBUMIN 2.5 g/dL (3.4-5.0); ALBUMIN/GLOBULIN RATIO 0.5 (1.0-1.7); TOTAL PROTEIN 7.1 g/dL (6.4-8.2)
[2021-07-31] MEDS ORDERED: ASPIRIN CHEWABLE 81 MG TABLET. PO ONE (21:30)
[2021-07-31] MEDS: NITROGLYCERIN SUBLINGUAL 0.4 MG BOTTLE OF 25. SL PRN ×6 (21:39→23:23)
[2021-07-31] MEDS ORDERED: NITROGLYCERIN SUBLINGUAL 0.4 MG BOTTLE OF 25. SL PRN ×2 (22:00→23:30)
[2021-07-31 22:01] LABS: BILIRUBIN,URINE SMALL (NEG); CLARITY,URINE CLEAR; COLOR,URINE YELLOW; GLUCOSE,URINE NEG (NEG)
[2021-07-31 22:02] LABS: BACTERIA,URINE 0 /HPF (0-FEW); NITRITE,URINE NEG (NEG); RBC,URINE 0 /HPF (0-2); SQUAMOUS EPITHELIAL CELL,UR FEW /LPF; UROBILINOGEN,URINE >=8.0 mg/dL (0.2 mg/dL); WBC,URINE OCC /HPF (0-4)
[2021-07-31] MEDS ORDERED: LISINOPRIL 20 MG TABLET PO ONE (22:45)
[2021-07-31 23:29] LABS: BARBITURATES NEG (NEG); BENZODIAZEPINES NEG (NEG); CANNABINOIDS POS (NEG); COCAINE NEG (NEG); METHADONE NEG (NEG); OPIATES NEG (NEG); PHENCYCLIDINE NEG (NEG)
[2021-07-31 23:30] LABS: AMPHETAMINE/METHAMPHETAMINE POS (NEG)
[2021-07-31] MEDS ORDERED: LABETALOL 20 MG/4 ML DISP.SYRIN. IVP ONE (23:30)
[2021-08-01] MEDS ORDERED: LABETALOL 20 MG/4 ML DISP.SYRIN. IVP PRN (00:30)
[2021-08-01 00:52] VITALS: BP 148/91
--- NOTE | 2021-08-01 02:05 | NUR ---
PT ADMITTED TO [facility] VIA EMS. PT AMBULATED FROM GURNEY TO BED INDEPENDENTLY. VS OBTAINED. PT AOX4. PT IS UNABLE TO PROVIDE HOME MEDICATION LIST. PT PHARMACY WILL BE CALLED DURING OPERATING HOURS FOR HOME MEDICATION LIST.
[2021-08-01 06:17] VITALS: BP 144/99
--- NOTE | 2021-08-01 06:52 | RAD ---
Single view chest dated 08/01/2021 6:48 AM: COMPARISON: 07/31/2021 Clinical Indication: Pulmonary edema. Findings: Single upright portable exam of the chest was performed. Heart size is mildly enlarged, stable. Coars ened interstitial markings, unchanged. No consolidation or pleural effusion. No pneumothorax. IMPRESSION: No significant interval change compared to 07/31/2021. Electronically signed by: Butch Mcgee MD (08/01/2021 6:49 AM) GISELLE
[2021-08-01 07:38] LABS: BASO # 0.1 x10^3/uL (0.0-0.2); BASO % 1 % (0-3); EOS # 0.5 x10^3/uL (0.0-0.7); EOS % 5 % (0-3); HEMATOCRIT 46.5 % (39.0-53.0); HEMOGLOBIN 15.4 g/dL (13.0-17.5); LYMPH # 2.7 x10^3/uL (1.0-4.8); LYMPH % 29 % (24-48); MEAN CORPUSCULAR HEMOGLOBIN 30 pg (25-35); MEAN CORPUSCULAR HGB CONC 33 g/dL (31-37); MEAN CORPUSCULAR VOLUME 89 fL (79-100); MONO # 0.7 x10^3/uL (0.0-1.1); MONO % 8 % (0-9); NEUT # 5.4 x10^3uL (1.8-7.7); NEUT % 57 % (31-73); PLATELET COUNT 211 x10^3/uL (140-400); RED BLOOD COUNT 5.22 x10^6/uL (4.30-5.70); RED CELL DISTRIBUTION WIDTH 14.9 % (11.5-14.5); WHITE BLOOD COUNT 9.5 x10^3/uL (4.0-11.0)
[2021-08-01 07:46] LABS: ALBUMIN 2.6 g/dL (3.4-5.0); ALBUMIN/GLOBULIN RATIO 0.6 (1.0-1.7); CALCIUM 8.1 mg/dL (8.5-10.1); GFR 81.9; POTASSIUM 3.9 mmol/L (3.5-5.1); TOTAL BILIRUBIN 0.9 mg/dL (0.2-1.0); TOTAL PROTEIN 6.7 g/dL (6.4-8.2)
[2021-08-01] MEDS: CARVEDILOL 12.5 MG TABLET PO SCH ×2 (09:08→16:32)
[2021-08-01 11:13] VITALS: BP 152/109
[2021-08-01] MEDS ORDERED: LISINOPRIL 20 MG TABLET PO SCH (13:00)
--- NOTE | 2021-08-01 13:32 | HP ---
DATE OF SERVICE: 08/01/2021 ADMIT DATE: 07/31/2021 ATTENDING PHYSICIAN: Dr. Mendez. CHIEF COMPLAINT: Shortness of breath. HISTORY OF PRESENT ILLNESS: Anthony parekh is a 41-year-old male with a known cardiac history. He has been noncompliant with meds. He comes in complaining of shortness of breath for the last 4 to 6 weeks. No COVID exposure. He has been fully vaccinated. Workup in the ED showed his blood pressure markedly elevated at 210 mmHg sustained. He was treated accordingly. Chest x-ray showed enlarged globular heart with vascular congestion and pleural effusions. The patient has labile hypertension. He also admits to using recreational methamphetamine, which does not help his blood pressure. He is admitted then with hypertensive urgency and acute on chronic congestive heart failure, systolic in nature. PAST MEDICAL HISTORY: He has a longstanding history of heart disease. He had a stress test and a cardiac catheterization a year ago. He stopped this medication. He was taking Coreg and lisinopril along with a diabetic regimen. He has hypertension, chronic kidney disease, and attention deficit disorder. ALLERGIES: HE HAS ALLERGIES TO TRIMETHOPRIM AND SULFA, EXACT REACTION IS UNCLEAR. SOCIAL HISTORY: He is a smoker. He also uses recreational methamphetamine. No alcohol use. FAMILY HISTORY: Parents are both alive at age 62 and 69. Mom and dad respectively, both have diabetes. He also had some pedal edema and stasis dermatitis. REVIEW OF SYSTEMS: Remarkable for the dyspnea with exertion, orthopnea and totally noncompliance with little insight into his illness. He said he has been taking his meds for 2 months now. PHYSICAL EXAMINATION: GENERAL: When I saw him, this is a pleasant gentleman. VITAL SIGNS: Initial vital signs showed a blood pressure of 200 systolic. By the time I saw him the next day, it came down to 152/109 mmHg. He was afebrile, oxygen saturation 97% on 2 liters. HEENT: Head is without trauma. Pupils are reactive. Sclerae nonicteric. Oropharynx is clear. NECK: Supple, no bruits identified. LUNGS: Bibasilar rales. CARDIOVASCULAR: Showed regular heart tones. No gallops. ABDOMEN: Soft. EXTREMITIES: Show trace edema. NEUROLOGIC FINDINGS: Focally intact. PERTINENT LABORATORY STUDIES: Chest x-ray as noted. Hemoglobin on admission was 16.1 g/dL with a white count of 12,700. Creatinine is 1.0. Nonfasting blood sugar 182. BNP is 4822. ASSESSMENT: 1. This 41-year-old gentleman has hypertensive urgency. 2. Noncompliance of meds. 3. Polysubstance abuse, methamphetamine use causing elevation of blood pressure. 4. Type 2 diabetes. 5. Obesity. PLAN: 1. Admit to the inpatient unit. 2. Telemetry monitoring. 3. Accu-Cheks as ordered. 4. Restart his Coreg 25 mg b.i.d. 5. Lasix 80 mg daily. 6. Metformin 500 mg b.i.d. 7. Serial chemistries. 8. Daily weights, I and O's. PHANI DR: Zena TID: [id number] CC: Addison Cornelius
[2021-08-01 16:08] VITALS: BP 150/89
[2021-08-01] MEDS: metFORMIN 500 MG TABLET PO SCH (16:30)
[2021-08-01] MEDS ORDERED: LISINOPRIL 20 MG TABLET PO ONE (16:45)
[2021-08-01] MEDS: NICOTINE 21MG PATCH. TD SCH (17:58)
[2021-08-01 19:00] VITALS: BP 121/75
[2021-08-01] MEDS: POTASSIUM CHLORIDE 20 MEQ TABLET.ER. PO SCH (21:08)
[2021-08-01 23:00] VITALS: BP 129/79
[2021-08-02 05:00] VITALS: BP 158/78
[2021-08-02] MEDS: metFORMIN 500 MG TABLET PO SCH (08:23)
[2021-08-02] MEDS: POTASSIUM CHLORIDE 20 MEQ TABLET.ER. PO SCH (08:23)
[2021-08-02] MEDS: CARVEDILOL 12.5 MG TABLET PO SCH (08:23)
[2021-08-02 08:24] VITALS: BP 158/78
[2021-08-02] MEDS: NICOTINE 21MG PATCH. TD SCH (08:24)
[2021-08-02] MEDS ORDERED: LISINOPRIL 20 MG TABLET PO SCH (09:00)
[2021-08-02] MEDS ORDERED: FUROSEMIDE 80 MG TABLET PO SCH (09:00)
--- NOTE | 2021-08-02 09:17 | NUR ---
Nursing note PT in bed, assessed and morning medications administered per doctors orders and documented. PT ate 100% of his breakfast and stated he is ready to go home. PT in bed verbalized no discomfort, bed low call light within reach. PT was told by the nurse the doctor will be seeing him soon to talk about his discharge and what he has to do when discharged from the hospital. PT verbalized understanding and had no further needs. Will continue to monitor.
--- NOTE | 2021-08-02 09:38 | NUR ---
Nursing note PT in bed, call light within reach, bed low. Doctor and nurse in room with the PT. PT given information on discharge planning by the doctor. Doctor told the PT to stop taking drugs, take his medications as ordered and take care of himself because he the doctor, can only do so much and if the PT does not follow instructions, take medications as ordered, stop taking drugs he is going to get worse and nothing can be done. Doctor asked the PT if he has been told these before and the PT stated "yes, i have." Doctor told the PT so am telling you this again to make sure you understand the importance of following instructions on how to take care of your health. PT verbalized he will follow these instructions. Discharge assessments done and documented. written prescriptions from the doctor given to the PT. Discharge orders put in by the doctor, discharge paper work handed to the PT and signed by the PT and the nurse. PT assisted off the floor by the nurse with a wheel chair and picked up from the hospital to go home by a family member.
--- NOTE | 2021-08-02 13:28 | DS ---
DATE OF DISCHARGE: 08/02/2021 ATTENDING PHYSICIAN: Dr. Mendez. FINAL DISCHARGE DIAGNOSES: 1. Labile hypertension with hypertensive urgency. 2. Noncompliance of meds. 3. Polysubstance abuse. 4. Chronic obstructive pulmonary disease due to tobacco use. 5. Type 2 diabetes. 6. Morbid obesity. HISTORY AND PHYSICAL: The patient is a 41-year-old gentleman with a known hypertensive cardiomyopathy. He presented with shortness of breath. He had elevation of the BNP, vascular congestion and cardiomegaly. Unfortunately, he has been noncompliant regarding his meds. He said he had not taken his blood pressure meds for the last 2 months. He continues to smoke. He is overweight and he does injectable methamphetamine. PHYSICAL EXAMINATION: Please see the dictated note. PERTINENT LABORATORY AND X-RAY STUDIES: On admission, his hemoglobin was 16.1 g/dL with a white count of 12,700. Repeat white count was down to 9500. Nonfasting blood sugar was 182; after treatment, it was down to 125 mg/dL. BNP was 4800. Chemistry panel on admission showed sodium 135 mEq, potassium 3.9 mEq, creatinine is 1.0 mg/dL. COURSE IN THE HOSPITAL: The patient was admitted. He was started on his blood pressure meds, namely Coreg, lisinopril, Lasix. I also restarted his metformin. He did well. Diet was advanced. Strong encouragement to quit smoking and recreational drug use. Whether or not he will follow this advice remains to be seen. By the second hospital day, the second full day, his blood pressure was stable. Lungs were clear. He was stable for discharge. I wrote prescriptions then for lisinopril 40 mg p.o. daily, Lasix 80 mg p.o. daily, K-Dur 20 mEq p.o. daily, Coreg 25 mg b.i.d., and metformin 1000 mg p.o. daily. He is encouraged to follow up with Dr. Cornelius in 2 weeks' time and recheck electrolytes. Whether or not he will follow through and be compliant to take his meds again remains to be seen. The patient was then discharged from our hospital in stable condition with explicit drug and followup care. Total discharge time was 39 minutes. OLIVIA/DOMINICK/BHUPINDER DR: OLIVIA/jose de jesus TID: [id number] CC: Addison Cornelius
== END 2021-08-02 09:49 | disposition home or self-care (01) | DRG 304 ==
LOC: ER 17:49 → 1 SOUTH 21:56
PROVIDERS: ADMIT Hospitalist; ATTEND Hospitalist
DX: I16.0 Hypertensive urgency (principal); I50.23 Acute on chronic systolic (congestive) heart failure; I43 Cardiomyopathy in diseases classified elsewhere; I13.0 Hypertensive heart and chronic kidney disease with heart failure and stage 1 through stage 4 chronic kidney disease, or unspecified chronic kidney disease; E11.22 Type 2 diabetes mellitus with diabetic chronic kidney disease; E66.01 Morbid (severe) obesity due to excess calories; F17.200 Nicotine dependence, unspecified, uncomplicated; F15.90 Other stimulant use, unspecified, uncomplicated; I25.10 Atherosclerotic heart disease of native coronary artery without angina pectoris; J44.9 Chronic obstructive pulmonary disease, unspecified; L30.9 Dermatitis, unspecified; N18.9 Chronic kidney disease, unspecified; Z79.84 Long term (current) use of oral hypoglycemic drugs; Z79.899 Other long term (current) drug therapy; Z83.3 Family history of diabetes mellitus; Z91.14 Patient's other noncompliance with medication regimen; Z91.19 Patient's noncompliance with other medical treatment and regimen; F41.9 Anxiety disorder, unspecified; F90.9 Attention-deficit hyperactivity disorder, unspecified type
CPT/HCPCS: 36415; 71045; 80053; 80307; 81001; 82947; 83880; 84484; 85025; 87428; 93005; 96365; 96375; J1200; J3010; J3490; U0003; 99285-25